=== PATIENT | female | born 1985 | race Caucasian/White ===

== ENCOUNTER → 2017-10-26 18:13 | Outpatient (CLI) | payer OTHER, SELFPAY ==
--- NOTE | 2017-10-26 18:44 | US_ITS ---
STUDY: RENAL ULTRASOUND - COMPLETE REASON FOR EXAM: Female, 32 years old. Flank pain TECHNIQUE: Ultrasound evaluation of the kidneys was performed with real-time and static cerda-scale imaging. COMPARISON: None. FINDINGS: RIGHT KIDNEY: Normal location of the right kidney, which is normal in size. The right kidney measures 12.0 x 5.2 x 4.1 cm. There is a normal cortex of the right kidney. The renal cortex measures 1.3 cm. There is no right renal mass or cyst. There are no right renal calculi. There is no right hydronephrosis. DISTAL RIGHT URETER: There is non-visualization of the distal right ureter. There is no demonstrated right ureterovesical junction calculus. There is a visualized right ureteral jet. LEFT KIDNEY: Normal location of the left kidney, which is normal in size. The left kidney measures 11.8 x 4.6 x 5.3 cm. There is a normal cortex of the left kidney. The renal cortex measures 1.8 cm. There is no left renal mass. There is a small simple cortical mid 1.1 simple cyst. There are no left renal calculi. There is no left hydronephrosis. DISTAL LEFT URETER: There is non-visualization of the distal left ureter. There is no demonstrated left ureterovesical junction calculus. There is a visualized left ureteral jet. BLADDER: The distended urinary bladder has a volume of 318 ml. The empty urinary bladder has a volume of 9 ml. There is a normal wall thickness of the distended urinary bladder. There is no demonstrated mass within the urinary bladder. There are no demonstrated bladder calculi. US/Kidney and Bladder IMPRESSION: Normal ultrasound of the kidneys and urinary bladder. Small simple left cortical renal cyst. No hydronephrosis. Electronically Signed: Lukas John DO at 9:43 EST , Service support ,
== END ==
DX: O26.891 Other specified pregnancy related conditions, first trimester (principal); R10.9 Unspecified abdominal pain; Z3A.01 Less than 8 weeks gestation of pregnancy
CPT/HCPCS: 76770

== ENCOUNTER → 2018-02-26 09:07 | Outpatient (CLI) | payer OTHER, SELFPAY ==
--- NOTE | 2018-02-26 09:07 | DT_ITS ---
This patient was seen during an EMR downtime February 25, 2018 - March 04, 2018. This patient may have a combination of paper and electronic documentation or all paper documentation. All documentation is viewable within the e-chart portion of [employer] for each patient visit.
[2018-03-01 09:09] LABS: Rapid Plasmin Reagin (RPR) NONREACTIVE (NONREACTIVE)
[2018-03-01 12:58] LABS: Chlamydia Trachomatis by PCR Negative (Negative); Neisserai gonorrhoeae by PCR Negative (Negative); Probe Check PASS; Sample Adequacy Control PASS; Specimen Processing Control PASS
[2018-03-04 14:23] LABS: HIV - WCH Nonreactive (Nonreactive); Rubella IgG > 500.0 IU/mL
[2018-03-04 17:44] LABS: Thyroid Stim Hormone (TSH) 2.06 uIU/mL (0.358-3.74)
== END ==
PROVIDERS: Visit Provider Obstetrics & Gynecology Reproductive Endocrinology
DX: E03.9 Hypothyroidism, unspecified (principal); Z31.41 Encounter for fertility testing; Z11.9 Encounter for screening for infectious and parasitic diseases, unspecified; Z11.4 Encounter for screening for human immunodeficiency virus [HIV]
CPT/HCPCS: 36415; 84443; 86592; 86703; 86762; 86787; 86803; 87340; 87491; 87591

== ENCOUNTER → 2018-07-22 06:20 | Outpatient (CLI) | payer OTHER, SELFPAY ==
[2018-07-22 07:59] LABS: hCG Titer Quant., Serum 72 mIU/mL (<9 non-preg)
== END ==
PROVIDERS: Referring Provider Obstetrics & Gynecology Reproductive Endocrinology; Visit Provider Obstetrics & Gynecology Reproductive Endocrinology
DX: Z32.00 Encounter for pregnancy test, result unknown (principal)
CPT/HCPCS: 36415; 84702

== ENCOUNTER → 2018-07-24 06:25 | Outpatient (CLI) | payer OTHER, SELFPAY ==
[2018-07-24 07:00] LABS: hCG Titer Quant., Serum 155 mIU/mL (<9 non-preg)
[2018-07-24 08:19] LABS: Thyroid Stim Hormone (TSH) 1.33 uIU/mL (0.358-3.74)
== END ==
PROVIDERS: Referring Provider Obstetrics & Gynecology Reproductive Endocrinology; Visit Provider Obstetrics & Gynecology Reproductive Endocrinology
DX: Z32.01 Encounter for pregnancy test, result positive (principal); E03.9 Hypothyroidism, unspecified
CPT/HCPCS: 36415; 84443; 84702

== ENCOUNTER → 2018-07-29 15:36 | Outpatient (CLI) | payer OTHER, SELFPAY ==
[2018-07-29 17:13] LABS: hCG Titer Quant., Serum 2168 mIU/mL (<9 non-preg)
== END ==
PROVIDERS: Referring Provider Obstetrics & Gynecology Reproductive Endocrinology; Visit Provider Obstetrics & Gynecology Reproductive Endocrinology
DX: Z32.01 Encounter for pregnancy test, result positive (principal)
CPT/HCPCS: 36415; 84702

== ENCOUNTER → 2018-11-12 16:38 | Outpatient (CLI) | payer OTHER, SELFPAY ==
[2018-11-12 17:45] LABS: T4 Free Direct 0.82 ng/dL (0.76-1.46); Thyroid Stim Hormone (TSH) 1.36 uIU/mL (0.358-3.74)
== END ==
PROVIDERS: Visit Provider Obstetrics & Gynecology
DX: O99.282 Endocrine, nutritional and metabolic diseases complicating pregnancy, second trimester (principal); E03.9 Hypothyroidism, unspecified; Z3A.00 Weeks of gestation of pregnancy not specified
CPT/HCPCS: 36415; 84439; 84443

== ENCOUNTER → 2019-01-07 | Outpatient (CLI) | payer OTHER, SELFPAY ==
[2019-01-07 17:32] LABS: Hematocrit 35.5 % (37-47); Hemoglobin 11.8 g/dl (12.0-15.0); Mean Corp Hgb Conc 33.2 g/gl (32-36); Mean Corpuscular Hgb 29.5 pg (27.0-32.0); Mean Corpuscular Volume 88.8 fL (81-99); Mean Platelet Vol. 10.3 fl (6.2-12.0); Platelet Count 354 K/mm3 (150-450); RBC Distribution Width CV 13.9 % (11.6-14.6); RBC Distribution Width SD 44.5 fl (35.1-43.9); White Blood Count 10.2 K/mm3 (4.4-11.0)
[2019-01-07 17:41] LABS: Glucose Challenge Gest 1H 50g 153 mg/dL (70-140); Scan Indicated on CBC? Y/N NO
== END | disposition home or self-care (01) ==
LOC: WOBLAB 15:04
PROVIDERS: Visit Provider Obstetrics & Gynecology
DX: Z34.83 Encounter for supervision of other normal pregnancy, third trimester (principal)
CPT/HCPCS: 36415; 82950; 85027

== ENCOUNTER → 2019-01-17 | Outpatient (CLI) | payer OTHER, SELFPAY ==
[2019-01-17 08:06] LABS: Glucose GTT-Gestation. Fasting 87 mg/dL (<105)
[2019-01-17 09:55] LABS: Glucose GTT-Gestational 2 Hr 131 mg/dL (<165)
[2019-01-17 10:06] LABS: Glucose GTT-Gestational 1 Hr 182 mg/dL (<190)
[2019-01-17 11:17] LABS: Glucose GTT-Gestational 3 Hr 113 L (<145)
== END | disposition home or self-care (01) ==
LOC: LAB 06:43
PROVIDERS: Referring Provider Obstetrics & Gynecology; Visit Provider Obstetrics & Gynecology
DX: O24.419 Gestational diabetes mellitus in pregnancy, unspecified control (principal); Z3A.00 Weeks of gestation of pregnancy not specified
CPT/HCPCS: 36415; 82951; 82952

== ENCOUNTER → 2019-03-04 | Outpatient (CLI) | payer OTHER, SELFPAY | END | disposition home or self-care (01) | LOC: LABSPEC 11:27 | PROVIDERS: Visit Provider Obstetrics & Gynecology | DX: Z36.85 Encounter for antenatal screening for Streptococcus B (principal) | CPT/HCPCS: 87077; 87081; 87186 ==

== ENCOUNTER 2019-04-06 19:04 | Inpatient (IN) | payer OTHER, SELFPAY ==
--- NOTE | 2019-04-06 19:28 | PCM.HPOB.BLA ---
History and Physical Date of Admission: 04/06/19 OB HISTORY AND PHYSICAL EXAMINATION History of this : 33 yo female Ab2 with EDC 03/29/2019 by Ultrasound, presents to Labor and Delivery for cytotec induction of labor at 41 1/7 wk EGA with unfavorable cervix. care remarkable for : Blood Type - O positive Rubella - IMMUNE GBS positive. 1.) ABNORMAL Glucola 153 3 hr GTT WNL 2.) Hypothyroidism, on Levothyroxine 100 mcg daily, 3.) marginal previa 1.5cm Repeat sono at 28-30 wks for follow up 4.) PCOS. high BMI. 5.) IVF-ET with preimplantation genetics, WNL, SMA test NEG, NOT a carrier for CF. Fragile X testing NEG Pertinent Past Medical History: PCOS. infertility hx. Allergies: Sulfa (Sulfonamide Antibiotics) Medications: During - metformin 500 mg tablet; Prometrium 200 mg capsule; levothyroxine 100 mcg tablet; aspirin 81 mg tablet,delayed release; Vitafol-OB 65-1 mg tablet; Vitamin D3 1,000 unit capsule Review of Systems: Non-contributory PHYSICAL EXAMINATION General Appearence: 33 yo female in no acute distress Vital Signs: AF, VSS Heart: RRR without rubs or gallops Lungs: CTA x 2 Breasts: deferred Abdomen: gravid Pelvis: Cervix: dimple (closed)/ th/high midposition. Presentation: cephalic Station: Fetus: Size: AGA Movement: present Heart: 130-140s avg variability Accels. Irregular UCs. some irritability noted. Impression /Plan: Intrauterine . 41 1/7 wk EGA for induction of labor Admit. Plan cytotect to [facility], Pitocin GBS positive. History and physical generated at time of patient admission. See Progress Notes for Changes: Physician's Signature: Date: Russel Barroso MD 04/06/192024
[2019-04-06] MEDS: Lactated Ringers 1,000 ML 50 ML IV (19:40)
[2019-04-06 19:57] LABS: Absolute Lymphocyte Count 2.65 X10^3/ul (0.83-4.51); Absolute Neutrophil Count 4.8 X10^3/uL (2.0-7.7); Basophil# 0.01 X10^3/uL; Basophil% 0.1 % (0-1); Eosinophil# 0.21 X10^3/uL; Eosinophils% 2.5 % (0-5); Hematocrit 33.7 % (37-47); Hemoglobin 10.9 g/dl (12.0-15.0); Lymphocyte # 2.65 X10^3/ul (4.0); Lymphocyte % 31.3 % (19-41); Mean Corp Hgb Conc 32.3 g/gl (32-36); Mean Corpuscular Volume 83.6 fL (81-99); Mean Platelet Vol. 9.9 fl (6.2-12.0); Monocyte# 0.82 X10^3/uL; Monocyte% 9.7 % (0-10); Neutrophil # 4.77 X10^3/uL (2.7-7.7); Neutrophil % 56.3 % (47-70); Platelet Count 331 K/mm3 (150-450); RBC Distribution Width CV 15.8 % (11.6-14.6); RBC Distribution Width SD 47.9 fl (35.1-43.9); Red Blood Count 4.03 M/mm3 (4.2-5.4); White Blood Count 8.5 K/mm3 (4.4-11.0)
[2019-04-06 20:04] VITALS: BMI 47.9
[2019-04-06 20:04] LABS: POSITIVE COUNT NO; POSITIVE DIFFERENTIAL NO; POSITIVE MORPHOLOGY NO
[2019-04-06] MEDS: Mag Hydrox/Al Hydrox/Simeth 30 ML UDC PO (20:46)
[2019-04-06] MEDS: 0.9% Saline Lock 10 ML Syringe IV (20:46)
--- NOTE | 2019-04-06 22:18 | PCM.PN.BLA ---
Progress Note 41 wk Cytotec postdates induction EFM 130-140 avg variability. Accels category I tracing UCs q 2-5 mins. A/P: continue induction. Plan to [facility] , Pitocin 04/07. Consider Zurita bulb prn
[2019-04-07] VITALS (13 sets, daily range): BP systolic 118–145; BP diastolic 59–77; PULSE 81–101; RESP 12–18; TEMP 36.6–37.5; O2SAT 96–100
[2019-04-07] MEDS: Mag Hydrox/Al Hydrox/Simeth 30 ML UDC PO (00:51)
[2019-04-07] MEDS: 0.9% Saline Lock 10 ML Syringe IV (02:59)
[2019-04-07] MEDS: Lactated Ringers 1,000 ML 50 ML IV ×3 (02:59→16:59)
[2019-04-07] MEDS: Oxytocin 30 units/NS 500 ml 30 UNITS/500 ML IV.SOLN IV (09:45)
--- NOTE | 2019-04-07 12:19 | PCM.PN.BLA ---
Progress Note INDUCTION 41 2/7 wk Cytotec overnight. To [facility] / Pitocin or Zurita bulb planned Late entry from rounds this am at approx 0830 Feeling some UCs. AVSS EFM Category I tracing. 120-130s UCs irregular CX: /-3 sl AROM with minimal return of fluid? ? AROM A/P: 41 2/7 wk induction postdates. Continue induction. Pitocin per protocol . Watch for fluid return.
--- NOTE | 2019-04-07 12:25 | PCM.PN.BLA ---
Progress Note 41 2/7 wk induction Cytotec to [facility] earlier this am. Pitocin at 8 mIU/min AVSS Feeling 4/10 UC pain. EFM 120-130s accels noted. Reassuring. UCs q 2-6 mins. Some coupling and spacing. CX: 2+ / 80 /-3 IUPC placed to monitor UCs. A/PP: 41 2/7 wk induction postdates. Continue Pitocin prn to adequate mVUs. Watch progress, descent.
[2019-04-07] MEDS: fentaNYL-bupivacaine (epidural) 100 ML BAG EPIDURAL (12:55)
--- NOTE | 2019-04-07 14:10 | PCM.PN.BLA ---
Progress Note LABOR PROGRESS induction at 41 2/7 wk CX 3/100 per RN check. Pitocin off due to FHR deceleration after epidural to 80-90s for 6 mins. UCs noted, q 3-4 mins FHR now in 120-130s avg variability Accels noted. Variables noted. IUPC in place. Scalp lead placed per RN. A/P: 41 2/7 wk induction postdates. FHR deceleration IUPC in place. Variables. Position changes to facilitate rotation and to help tx variables. Resume Pitocin as able. Continue induction. watch tolerance of labor.
[2019-04-07] MEDS: Amnioinfusion- 0.9% NS 1,000 ML IV.SOLN. 1000 ML INTRA-UTER (14:13)
[2019-04-07] MEDS: Terbutaline 1 MG/ML Vial 0.25 MG SC ×2 (15:00→17:20)
[2019-04-07] MEDS: Sodium Citrate/Citric Acid 30 ML UDC PO (17:20)
--- NOTE | 2019-04-07 17:22 | PCM.PN.BLA ---
Progress Note Postdates induction. Category I tracing, untill pitocin resumed. Now with repetitive decelerations. AVSS Comfortable w/ epidural. A/P: 41 2/7 wk EGA Induction postdates. intolerance of labor. To C/S DEANN. Terbutaline given 0.25 mg SC. IV bolus.
[2019-04-07] MEDS: Ondansetron 4 MG/2 ML Vial IV (17:33)
[2019-04-07] MEDS: Ketorolac 30 MG/ML Syringe IV ×2 (18:01→23:39)
--- NOTE | 2019-04-07 18:11 | OP.PCM_ITS ---
Report of Operation Date of Procedure: 04/07/19 Pre-Operative Diagnosis: 41 2/7 wk induction. Nonreassuring FHT, in tolerance to labor Post-Operative Diagnosis: Same Surgery/Procedure Performed:: Primary Low transverse C section Description of Surgical Findings:: Gordillo viable female in VTX presentation. 8#1 oz. Ap 8/9 normal appearing uterus, fallopian tubes and ovaries bilaterally enlarged (PCOS) security management specialist: Shena Landrum Type of Anesthesia:: Epidural Anesthesiologist: Javier Prabhakar CRNA Specimen's removed: Placenta Drains: Zurita , clear yellow urine Estimated Blood Loss (mL): 800 Fluids Replaced: LR Description of Procedure: Narrative account: After the risks, benefits and alternatives of the procedure were reviewed with the patient, informed consent was obtained. The patient was taken to the Operating room with an IV running , a Zurita catheter in place and epidural catheter in place. . She was positioned on the operating table and the epidural was dosed to surgical levels. She was prepped and draped , including a vaginal vault prep, in the usual sterile fashion. Once the epidural was deemed adequate, a Pfannenstiel skin incision was created using the knife. The incision was carried down to the rectus fascia using the knife. The fascia was nicked in the midline. The fascial incision was extended bilaterally using curved Arciniega scissors. The superior aspect of the fascial incision was grasped with Juancarlos clamps and tented up and the underlying rectus abdominal muscles were dissected free. In a similar manner, the inferior aspect of the facial incision was grasped with Juancarlos clamps tented up and the underlying rectus abdominal muscles were dissected free. The rectus abdominis muscles were in the midline and the peritoneum was identified and entered by blunt dissection high in the incision. The peritoneum was stretched laterally and a bladder blade was inserted. A bladder flap was created along the lower uterine segment with Metzenbaum scissors . The uterine incision was then created using Metzenbaum scissors. The operators fingertips were used to extend the uterine incision by blunt dissection in a caudad- cephalad orientation . Clear fluid was noted at amniotomy. The vertex was then delivered atraumatically through the incision. The OP and nares were bulb suctioned on the abdomen. The shoulders delivered easily . The cord clamped x two and cut. And the infant was handed off to the nurse awaiting delivery after briefly showing her to her parents. The baby had good tone and a spontaneous vigorous cry. The placenta was then delivered. The uterus was exteriorized and cleared of clots and debris . The uterine incision was repaired with 1 Vicryl in a running locked fashion. A second imbricating layer of 1 Monocryl was placed. Bovie cautery was used to treat any bleeding areas . Excellent hemostasis was noted. At this point the uterus was returned to the abdominal cavity. The gutters were cleared of clots and debris and the incision at the uterus was inspected. Excellent hemostasis was noted. Nataliya was dusted over the uterine incision for continued hemostasis. The peritoneal edges and rectus abdominis muscles were reapproximated in the midline with a series of vertical mattress stitches of 1 Vicryl. Excellent hemostasis was noted at the subfascial space Nataliya was dusted over this layer for hemostasis. The fascia was closed in a running nonlocked fashion with a Stratofix. The Subcutaneous fatty tissue was Bovie cauterized as needed for hemostasis. Nataliya was applied to prevent seroma formation. This layer was then reapproximated in a single layer closure of running 3-0 Vicryl to eliminate space. The skin edges were closed in a Subcuticular stitch of 4-0 Monoc ryl. The incision was cleansed. Cavilon, Steristrips, and Mepilex dressing were applied to the skin . The patient was then transferred to the recovery room bed in stable condition after tolerating the procedure well. Sponge, lap, needle and instrument counts correct times two. Medications given preop and intraoperatively included: Ancef 3 gm IV and Azithromycin 500 mg IV time one were given button station worker to the operating room. The patient also received Pitocin given IV after cord clamp, and Toradol 30 mg IV times one. For a complete listing of medications given preop and intraoper atively, please see the anesthesia record. - Complications None - Admit VTE Documentation VTE Present on Admission: No VTE Mechan Device Prophylaxis: SCD's VTE Pharm Prophylaxis ordered?: No Delivery Classification: DEANN Final FRANKO: 03/29/19 Gestational age: 41 Weeks and 2 Days Amniotic Membrane Rupture Type: Artificial Amniotic Fluid Description: Clear Placenta Disposition: [facility] Drain: Zurita to straight drain Cord Entanglement: None Cord Vessel Description: 3 Vessels Esitmated Blood Loss (ml): 800 Infant Gender: Female (1 minute): 8 (5 minute): 9 Pre-op Antibiotic Given: - - Ancef 3 gm IV
[2019-04-07] MEDS: Lactated Ringers 1,000 ML 100 ML IV ×2 (18:30→23:34)
[2019-04-07] MEDS: Oxytocin 30 units/NS 500 ml 30 UNITS/500 ML IV.SOLN 167 UNITS IV (18:41)
--- NOTE | 2019-04-07 18:50 | DCINST_ITS ---
Discharge Diet: No Restrictions Discharge Activity: May not drive while taking narcotic pain medications., May Shower, May Take a Tub Bath May resume sexual activity in: 4-6 weeks Lifting Restrictions: 20 pounds Additional Activity Instructions:: Nothing in the vagina for 4-6 weeks. You may return to work/school in 6 weeks. Change Dressing in (Days):: 7 Remove Dressing in (days):: 7 Cleanse incision/area with: Soap & Water, Keep Dressing Clean & Dry Additional Instructions: If you experience any of the following, contact your healthcare provider. * Bleeding that soaks a pad every hour for 2 hours * Fever 100.4 or higher * Unrelieved incision or abdominal pain * Swelling, redness, discharge or bleeding from your incision * Problems urinating (including inability to urinate or burning while urinating). * Visual changes * Severe headache * Flu-like symptoms * Pain or redness in one of both of your breasts * Pain, warmth, tenderness or swelling in your legs, especially the calf area * Frequent nausea and vomiting * Symptoms of depression or anxiety If you experience any of the following, call 911 or go to the nearest Emergency Room. * Chest pain * Problems breathing * Seizure activity * Partial or complete paralysis of a body part, slurred speech, weakness or drooping of the face, or a sudden inability to walk or hold your balance Allergies/Adverse Reactions: Allergies Sulfa (Sulfonamide Antibiotics) Allergy (Verified 04/06/19 19:58) Rash Medications to take at Discharge Aspirin [Aspirin, Baby] 81 mg PO DAILY@0800 04/06/19 Levothyroxine [Synthroid] 100 mcg PO DAILY 04/06/19 Vits [Prenatabs FA] 1 tab PO DAILY 04/06/19 Vit D3/Folic Acid/B2/B6/B12 [Folgard Tablet] 1 ea PO DAILY 04/06/19 Docusate Sodium [Colace] 100 mg PO BID #30 cap 04/07/19 Ibuprofen 600 mg PO 4X/DAY PRN PRN #30 tab 04/07/19 Levothyroxine [Synthroid] 100 mcg PO DAILY@0600 tablet 04/07/19 Oxycodone [Oxyir] 5 mg PO Q6H PRN PRN 7 Days #20 tab 04/07/19 Polyethylene Glycol 3350 [Miralax] 17 gm PO DAILY PRN #14 packet 04/07/19 Vits [Prenatabs FA ] 1 tablet PO DAILY@1200 tablet 04/07/19 The following prescriptions were given: Docusate Sodium [Colace] 100 mg PO BID #30 cap Transmission Status: Sent to [facility] Ibuprofen 600 mg PO 4X/DAY PRN PRN #30 tab PRN Reason: Mild-Mod Pain (1-01/31) Transmission Status: Pending to [facility] Polyethylene Glycol 3350 [Miralax] 17 gm PO DAILY PRN #14 packet PRN Reason: Constipation Transmission Status: Pending to [facility] Oxycodone [Oxyir] 5 mg PO Q6H PRN PRN 7 Days #20 tab PRN Reason: Mod-Severe Pain (-07/03) Transmission Status: Pending to [facility] Follow-Up: Call to make an appointment with your doctor for an incision check in 1-2 weeks. You will also need a 6 week post- follow up appointment. Test results from this visit will be discussed in further detail at your follow- up appointment, if applicable. Please Follow Up With: Erinn Barroso MD - [phone] When: Call to make an appointment for an incision check in 2 weeks. Primary Care Physician: Braden Zapata MD [Primary Care Provider] - Proposed Discharge Date: 04/10/19
[2019-04-08] VITALS (12 sets, daily range): BP systolic 104–136; BP diastolic 48–69; PULSE 62–98; RESP 16–18; TEMP 36.3–37.2; O2SAT 97–100
[2019-04-08 04:45] LABS: Hematocrit 27.6 % (37-47); Hemoglobin 8.8 g/dl (12.0-15.0); Mean Corp Hgb Conc 31.9 g/gl (32-36); Mean Corpuscular Hgb 26.7 pg (27.0-32.0); Mean Corpuscular Volume 83.9 fL (81-99); Mean Platelet Vol. 10.2 fl (6.2-12.0); Platelet Count 265 K/mm3 (150-450); RBC Distribution Width CV 15.7 % (11.6-14.6); RBC Distribution Width SD 47.1 fl (35.1-43.9); Red Blood Count 3.29 M/mm3 (4.2-5.4); White Blood Count 14.4 K/mm3 (4.4-11.0)
[2019-04-08 04:46] LABS: Scan Indicated on CBC? Y/N NO
[2019-04-08] MEDS: Levothyroxine 100 MCG Tablet PO (05:30)
[2019-04-08] MEDS: Ketorolac 30 MG/ML Syringe IV ×3 (05:30→18:23)
--- NOTE | 2019-04-08 08:29 | PCM.PN.OB ---
Subjective: POD#1 intolerance to labor 41 2/7 wk EGA induction Doing well. Minimal pain Plans to nurse. - Physical Exam General: Alert, Oriented x3, Cooperative, No apparent distress HEENT: Atraumatic, EOMI Abdomen: Soft - Fundus inferior to umbliicus. Difficult to palpate with BMI Skin: Incision - Mepilex CDI with shadow drainage marked. Psych/Mental Status: Normal Affect Vital Signs Temp Pulse Resp BP Pulse Ox 98.9 F 98 16 135/69 H 98 04/08/19 05:15 04/08/19 05:15 04/08/19 05:15 04/08/19 05:15 04/08/19 05:15 Oxygen Delivery Method Room Air Weight: 122.9 kg Body Mass Index (BMI) 47.9 Intake and Output for Last 24 Hours 04/06/19 04/07/19 04/08/19 23:59 23:59 23:59 Intake Total 3226 / 3226 921 / 921 Output Total 950 / 950 700 / 700 Balance 2276 / 2276 221 / 221 Laboratory Tests Past 24 Hrs 04/08/19 04:35 WBC 14.4 H RBC 3.29 L Hgb 8.8 L Hct 27.6 L MCV 83.9 MCH 26.7 L MCHC 31.9 L RDW 15.7 H RDW Differential 47.1 H Plt Count 265 MPV 10.2 Medical Necessity - Tobacco Use Smoking Status: Never smoker Assessment/Plan POD#1 Primary C section. intolerance to labor 41 + wk induction Stable postop Inc diet and activity as tolerated. Begin po meds. D/C philip later today for voiding trial. S/L IV for continued Toradol Postop anemia, acute blood loss superimposed on iron deficiency anemia of -- Ferrous gluconate bid. Continue routine care.
--- NOTE | 2019-04-08 08:52 | NURSING ---
Has indwelling philip catheter. Catheter WNL
[2019-04-08] MEDS: Aspirin 81 MG TAB.CHEW PO (09:50)
--- NOTE | 2019-04-08 10:33 | NURSING ---
10:30 Patient up to bathroom with assist. Gait steady. Patient tolerated well. D/C philip. Emily care done in bathroom. Patient set up in shower. Patient ambulated in room.
[2019-04-08] MEDS: Prenatal Vits Tablet 1 TABLET PO (12:35)
[2019-04-08] MEDS: Ferrous Gluconate 324 MG Tablet PO (18:25)
[2019-04-08] MEDS: 0.9% Saline Lock 10 ML Syringe IV (18:25)
[2019-04-08] MEDS: Senna/Docusate Sodium 1 Tablet PO (22:22)
[2019-04-09] MEDS: Ketorolac 30 MG/ML Syringe IV ×3 (00:24→11:49)
[2019-04-09] MEDS: 0.9% Saline Lock 10 ML Syringe IV ×5 (00:24→11:49)
[2019-04-09 01:57] VITALS: BP 122/57; PULSE 88; RESP 18; TEMP 36.9
[2019-04-09] MEDS: Levothyroxine 100 MCG Tablet PO (06:15)
[2019-04-09 07:32] VITALS: BP 108/70; PULSE 75; RESP 18; TEMP 36.6; O2SAT 97
[2019-04-09] MEDS: Aspirin 81 MG TAB.CHEW PO (07:37)
[2019-04-09] MEDS: Ferrous Gluconate 324 MG Tablet PO ×2 (07:37→16:50)
--- NOTE | 2019-04-09 07:43 | PN.OBGYN_ITS ---
Subjective: POD#2 Primary C/S for failure to progress Doing OK. Zurita out yesterday. Nursing. Baby up a lot at night. No concerns voiced today. Questions about stairs at home, care of incision. Objective: Lying semirecumbent in bed. NAD. IV to S/L on L arm - Physical Exam General: Alert, Oriented x3, Cooperative, No apparent distress HEENT: Atraumatic, EOMI Abdomen: Soft - fundus firm minimally tender at 2 cm inferior to umbilicus Skin: Incision - Mepilex CDI. Neurological: Cranial nerves II-XII grossly intact Psych/Mental Status: Normal Affect Vital Signs Temp Pulse Resp BP Pulse Ox 97.9 F 75 18 108/70 97 04/09/19 07:32 04/09/19 07:32 04/09/19 07:32 04/09/19 07:32 04/09/19 07:32 Oxygen Delivery Method Room Air Weight: 122.9 kg Body Mass Index (BMI) 47.9 Intake and Output for Last 24 Hours 04/07/11 04//04/09/19 23:59 23:59 23:59 Intake Total 3226 / 3226 1616 / 1616 Output Total 950 / 950 2200 / 2200 Balance 2276 / 2276 -584 / -584 Medical Necessity - Tobacco Use Smoking Status: Never smoker Assessment/Plan POD#2 Primary C section. intolerance to labor 41 + wk induction Stable postop Wants to stay. Postop anemia, acute blood loss superimposed on iron deficiency anemia of pregn keysha -- Ferrous gluconate bid. Continue routine care.
[2019-04-09] MEDS: Prenatal Vits Tablet 1 TABLET PO (11:49)
[2019-04-09 13:57] VITALS: BP 136/73; PULSE 75; RESP 18; TEMP 36.5
[2019-04-09 20:42] VITALS: BP 129/69; PULSE 83; RESP 18; TEMP 36.8
[2019-04-09] MEDS: Acetaminophen 500 MG Tablet 1000 MG PO (22:21)
[2019-04-09] MEDS: Senna/Docusate Sodium 1 Tablet PO (22:21)
[2019-04-10 02:35] VITALS: BP 127/67; PULSE 69; RESP 18; TEMP 36.6
--- NOTE | 2019-04-10 05:49 | PCM.PN.OB ---
Subjective: POD#3 Primary C/S for intolerance to labor. Doing ok. Sore incision and some inc cramping with nursing. Milk not in yet. - Physical Exam General: Alert, Oriented x3, Cooperative, No apparent distress HEENT: Atraumatic, EOMI Neck: Supple Abdomen: Soft - Fundus firm NT at 2 cm inferior to umbilicus Skin: Incision - Mepilex CDI. Minor erythema noted at dressing clear tape superior to the incision. Neurological: Cranial nerves II-XII grossly intact Psych/Mental Status: Normal Affect Vital Signs Temp Pulse Resp BP Pulse Ox 97.9 F 69 18 127/67 H 97 04/10/19 02:35 04/10/19 02:35 04/10/19 02:35 04/10/19 02:35 04/09/19 07:32 Oxygen Delivery Method Room Air Weight: 122.9 kg Body Mass Index (BMI) 47.9 Intake and Output for Last 24 Hours 04/08/19 04/09/1918 23:59 23:59 23:59 Intake Total 1616 / 1616 Output Total 2200 / 2200 Balance -584 / -584 Medical Necessity - Tobacco Use Smoking Status: Never smoker Assessment/Plan POD#3 Primary C section. intolerance to labor 41 + wk induction Stable postop Dischg home today. RTO in 2 wk for postop check, prn sooner. Postop anemia, acute blood loss superimposed on iron deficiency anemia of -- Ferrous gluconate bid. Continue routine care.
--- NOTE | 2019-04-10 05:57 | PCM.DC.SUM ---
Discharge Date and Diagnosis Date of Admission: 04/06/19 - 41 + wk induction Date of Discharge: 04/10/19 - intolerance of labor primary C/S Hospital Course and Treatment Operations: - - Induction of labor. Primary C/S for intolerance of labor. Summary of Care Provided: The patient is a 33 year female presents at 41 wk for induction labor. Cytotec to [facility] Pitocin. Progressed to 3 cm/100 effaced. Epidural placed. Primary C/S for intolerance of labor. Delivered 04/07/19 Gordillo viable female Ap 8/9 Postoperative course uneventful. Iron deficiency anemia with superimposed acute blood loss anemia. Preop Hgb 10.9 g/dl Postop hgb 8.8 g/dl Home on POD#3 in stable condition, benign exam. Possible minor skin rxn to the tape of Mepilex dressing. RTO in 2 wk for postop incision check. - Physical Exam Vital Signs Temp Pulse Resp BP Pulse Ox 97.9 F 69 18 127/67 H 97 04/10/19 02:35 04/10/19 02:35 04/10/19 02:35 04/10/19 02:35 04/09/19 07:32 Oxygen Delivery Method Room Air Weight: 122.9 kg Body Mass Index (BMI) 47.9 Intake and Output for Last 24 Hours 04/08/19 04/09/19 04/10/19 23:59 23:59 23:59 Intake Total 1616 / 1616 Output Total 2200 / 2200 Balance -584 / -584 Discharge Diet: No Restrictions Discharge Activity: May not drive while taking narcotic pain medications., May Shower, May Take a Tub Bath May resume sexual activity in: 4-6 weeks Additional Activity Instructions:: Nothing in the vagina for 4-6 weeks. You may return to work/school in 6 weeks. Change Dressing in (Days):: 7 Remove Dressing in (days):: 7 Cleanse incision/area with: Soap & Water, Keep Dressing Clean & Dry Home Medications: Medications to take at Discharge Aspirin [Aspirin, Baby] 81 mg PO DAILY@0800 04/06/19 Levothyroxine [Synthroid] 100 mcg PO DAILY 04/06/19 Vits [Prenatabs FA] 1 tab PO DAILY 04/06/19 Vit D3/Folic Acid/B2/B6/B12 [Folgard Tablet] 1 ea PO DAILY 04/06/19 Docusate Sodium [Colace] 100 mg PO BID #30 cap 04/07/19 Ibuprofen 600 mg PO 4X/DAY PRN PRN #30 tab 04/07/19 Levothyroxine [Synthroid] 100 mcg PO DAILY@0600 tab 04/07/19 Oxycodone [Oxyir] 5 mg PO Q6H PRN PRN 7 Days #20 tab 04/07/19 Polyethylene Glycol 3350 [Miralax] 17 gm PO DAILY PRN #14 packet 04/07/19 Vits [Prenatabs FA ] 1 tab PO DAILY@1200 tab 04/07/19 Ferrous Gluconate 325 mg PO BIDCM #60 tab 04/08/19 Following Prescrptions Were Given to Patient: Docusate Sodium [Colace] 100 mg PO BID #30 cap Transmission Status: Received by [facility] Ferrous Gluconate 325 mg PO BIDCM #60 tab Transmission Status: Received by [facility] Ibuprofen 600 mg PO 4X/DAY PRN PRN #30 tab PRN Reason: Mild-Mod Pain (1-01/31) Transmission Status: Received by [facility] Polyethylene Glycol 3350 [Miralax] 17 gm PO DAILY PRN #14 packet PRN Reason: Constipation Transmission Status: Received by [facility] Oxycodone [Oxyir] 5 mg PO Q6H PRN PRN 7 Days #20 tab PRN Reason: Mod-Severe Pain (-07/03) Transmission Status: Received by [facility] Primary Care Physician: Braden Zapata MD [Primary Care Provider] - Please Follow Up With: Erinn Barroso MD - [phone] When: Call to make an appointment for an incision check in 2 weeks. Medical Necessity - Tobacco Use Smoking Status: Never smoker Meaningful Use Info Meaningful Use Diagnoses (Choose all that apply): None applicable
[2019-04-10] MEDS: Levothyroxine 100 MCG Tablet PO (06:09)
[2019-04-10] MEDS: Acetaminophen 500 MG Tablet 1000 MG PO ×2 (06:09→16:16)
[2019-04-10 08:28] VITALS: BP 136/76; PULSE 60; RESP 16; TEMP 36.9; O2SAT 97
[2019-04-10] MEDS: Aspirin 81 MG TAB.CHEW PO (08:48)
[2019-04-10] MEDS: Ferrous Gluconate 324 MG Tablet PO (08:48)
[2019-04-10] MEDS: Ibuprofen 600 MG Tablet PO (13:56)
[2019-04-10 13:58] VITALS: BP 122/62; PULSE 80; RESP 16; TEMP 37.1; O2SAT 98
== END 2019-04-10 16:25 | disposition home or self-care (01) | DRG 787 ==
PROVIDERS: Admitting Provider Obstetrics & Gynecology; Referring Provider Obstetrics & Gynecology; Visit Provider Obstetrics & Gynecology
DX: O48.0 Post-term pregnancy (principal); O98.82 Other maternal infectious and parasitic diseases complicating childbirth; D62 Acute posthemorrhagic anemia; Z3A.41 41 weeks gestation of pregnancy; O76 Abnormality in fetal heart rate and rhythm complicating labor and delivery; B95.1 Streptococcus, group B, as the cause of diseases classified elsewhere; O99.02 Anemia complicating childbirth; O99.284 Endocrine, nutritional and metabolic diseases complicating childbirth; E03.9 Hypothyroidism, unspecified; Z37.0 Single live birth; O90.81 Anemia of the puerperium
CPT/HCPCS: 59025; 59050; 85025; 85027; 86850; 86900; 99218; J7030; J7120; A4216; G0378; J0290; J2405

== ENCOUNTER → 2019-04-24 | Outpatient (CLI) | payer OTHER, SELFPAY ==
[2019-04-06 20:04] VITALS: BMI 47.9
== END | disposition home or self-care (01) ==
LOC: WOBLAB 10:55
PROVIDERS: Visit Provider Obstetrics & Gynecology
DX: R30.0 Dysuria (principal)
CPT/HCPCS: 87086; 87088

== ENCOUNTER → 2019-05-22 | Outpatient (CLI) | payer OTHER, SELFPAY ==
[2019-05-22 18:24] LABS: Free T3 2.5 pg/mL (2.18-3.98); T4 Free Direct 0.87 ng/dL (0.76-1.46); Thyroid Stim Hormone (TSH) 0.34 uIU/mL (0.358-3.74)
== END | disposition home or self-care (01) ==
LOC: WOBLAB 16:20
PROVIDERS: Visit Provider Obstetrics & Gynecology
DX: Z86.39 Personal history of other endocrine, nutritional and metabolic disease (principal)
CPT/HCPCS: 84439; 84443; 84481

== ENCOUNTER → 2020-09-13 13:00 | Outpatient (CLI) | payer OTHER, SELFPAY ==
[2020-09-13 08:43] VITALS: BMI 49.8
[2020-09-15 10:39] LABS: HPV APTIMA, High Risk Negative (Negative)
== END ==
PROVIDERS: PCP Internal Medicine; Referring Provider Obstetrics & Gynecology; Visit Provider Obstetrics & Gynecology
DX: Z12.4 Encounter for screening for malignant neoplasm of cervix (principal)
CPT/HCPCS: 87624; 88175; G0145

== ENCOUNTER → 2020-11-05 08:06 | Outpatient (CLI) | payer OTHER, SELFPAY ==
[2020-09-13 08:43] VITALS: BMI 49.8
--- NOTE | 2020-11-05 08:10 | RAD_ITS ---
STUDY: X-RAY - ESOPHAGUS (BARIUM SWALLOW) WITH FLUOROSCOPY REASON FOR EXAM: Female, 35 years old. dysphagia/g erd off and on x for couple years and getting worse. food gets stuck, has to vomit to get it up. TECHNIQUE: 30 view(s) of the esophagus were obtained following swallowing of barium. FLUOROSCOPY TIME (if supplied): (0:55) minutes/seconds COMPARISON: None. FINDINGS: There is no demonstrated esophageal foreign body. There is no demonstrated stricture or mucosal abnormality. Normal gastroesophageal junction, without a demonstrated hiatal hernia. The patient ingested a 12 mm tablet of barium. The tablet is trapped at the gastroesophageal junction. Normal visualized aortic arch and descending thoracic aorta. Normal visualized pulmonary parenchyma. Normal visualized osseous structures of the thorax. RAD/Esophagus Dual Contrast IMPRESSION: The patient ingested a 12 mm tablet of barium. The tablet is trapped at the gastroesophageal junction. Electronically Signed: Darren Ramos MD at 13:09 EST , Service support ,
== END ==
PROVIDERS: PCP Internal Medicine; Referring Provider Internal Medicine; Visit Provider Internal Medicine
DX: R13.10 Dysphagia, unspecified (principal); K21.9 Gastro-esophageal reflux disease without esophagitis
CPT/HCPCS: 74221

== ENCOUNTER → 2020-12-22 06:18 | Outpatient (CLI) | payer OTHER, SELFPAY ==
[2020-09-13 08:43] VITALS: BMI 49.8
[2020-12-22 08:04] LABS: Glucose 88 mg/dL (74-106)
[2020-12-22 08:13] LABS: Insulin 15.3 mU/L (2.6-37.6)
== END ==
PROVIDERS: PCP Internal Medicine; Referring Provider Obstetrics & Gynecology Reproductive Endocrinology; Visit Provider Obstetrics & Gynecology Reproductive Endocrinology
DX: E16.8 Other specified disorders of pancreatic internal secretion (principal)
CPT/HCPCS: 36415; 82947; 83525

== ENCOUNTER → 2021-04-28 06:52 | Outpatient (CLI) | payer OTHER, SELFPAY ==
[2020-09-13 08:43] VITALS: BMI 49.8
[2021-04-28 07:38] LABS: hCG Titer Quant., Serum 131 mIU/mL (1-3)
== END ==
PROVIDERS: PCP Internal Medicine; Referring Provider Obstetrics & Gynecology Reproductive Endocrinology; Visit Provider Obstetrics & Gynecology Reproductive Endocrinology
DX: Z32.00 Encounter for pregnancy test, result unknown (principal)
CPT/HCPCS: 36415; 84702

== ENCOUNTER → 2021-05-02 07:13 | Outpatient (CLI) | payer OTHER, SELFPAY ==
[2020-09-13 08:43] VITALS: BMI 49.8
[2021-05-02 07:57] LABS: hCG Titer Quant., Serum 378 mIU/mL (1-3)
[2021-05-02 08:02] LABS: Thyroid Stim Hormone (TSH) 2.62 uIU/mL (0.358-3.74)
== END ==
PROVIDERS: PCP Internal Medicine; Referring Provider Obstetrics & Gynecology Reproductive Endocrinology; Visit Provider Obstetrics & Gynecology Reproductive Endocrinology
DX: Z32.01 Encounter for pregnancy test, result positive (principal)
CPT/HCPCS: 36415; 84443; 84702

== ENCOUNTER → 2021-07-14 16:03 | Outpatient (CLI) | payer OTHER, SELFPAY ==
[2021-07-14 17:08] LABS: Amphetamine Urine VISTA NEGATIVE (<1000 ng/mL); Barbiturate Urine VISTA NEGATIVE (< 200 ng/mL); Benzodiazepine Urine VISTA NEGATIVE (< 200 ng/mL); Cocaine Urine VISTA NEGATIVE (< 300 ng/mL); Ecstacy Urine VISTA NEGATIVE (< 500 ng/mL); Methadone Urine VISTA NEGATIVE (< 300 ng/mL); PCP Urine VISTA NEGATIVE (< 25 ng/mL); THC Urine VISTA NEGATIVE (< 50 ng/mL); Vista UDS pH Range 5
== END ==
PROVIDERS: PCP Internal Medicine; Referring Provider Obstetrics & Gynecology; Visit Provider Obstetrics & Gynecology
DX: Z34.90 Encounter for supervision of normal pregnancy, unspecified, unspecified trimester (principal)
CPT/HCPCS: 80307; 87086; 87088

== ENCOUNTER → 2021-07-27 15:34 | Outpatient (CLI) | payer OTHER, SELFPAY ==
[2021-07-27 17:05] LABS: Glucose Challenge Gest 1H 50g 99 mg/dL (70-140); T4 Free Direct 0.83 ng/dL (0.76-1.46); Thyroid Stim Hormone (TSH) 1.77 uIU/mL (0.358-3.74)
== END ==
PROVIDERS: PCP Internal Medicine; Referring Provider Obstetrics & Gynecology; Visit Provider Obstetrics & Gynecology
DX: Z34.90 Encounter for supervision of normal pregnancy, unspecified, unspecified trimester (principal)
CPT/HCPCS: 36415; 82950; 84439; 84443

== ENCOUNTER → 2021-08-12 16:50 | Outpatient (CLI) | payer OTHER, SELFPAY ==
[2021-08-12 18:13] LABS: T4 Free Direct 0.82 ng/dL (0.76-1.46); Thyroid Stim Hormone (TSH) 1.92 uIU/mL (0.358-3.74)
== END ==
PROVIDERS: PCP Internal Medicine; Referring Provider Obstetrics & Gynecology; Visit Provider Obstetrics & Gynecology
DX: E03.9 Hypothyroidism, unspecified (principal); Z13.29 Encounter for screening for other suspected endocrine disorder
CPT/HCPCS: 36415; 84439; 84443

== ENCOUNTER → 2021-09-12 09:03 | Outpatient (CLI) | payer OTHER, SELFPAY ==
[2021-09-12 09:47] LABS: T4 Free Direct 0.73 ng/dL (0.76-1.46); Thyroid Stim Hormone (TSH) 1.54 uIU/mL (0.358-3.74)
== END ==
PROVIDERS: PCP Internal Medicine; Referring Provider Obstetrics & Gynecology; Visit Provider Obstetrics & Gynecology
DX: E03.9 Hypothyroidism, unspecified (principal)
CPT/HCPCS: 36415; 84439; 84443

== ENCOUNTER 2021-10-06 14:35 | Outpatient (CLI) | payer OTHER, SELFPAY ==
[2021-10-06 15:03] LABS: Absolute Lymphocyte Count 2.46 X10^3/uL (0.83-4.51); Absolute Neutrophil Count 7.7 X10^3/uL (2.0-7.7); Basophil# 0.02 X10^3/uL; Basophil% 0.2 % (0-1); Eosinophil# 0.15 X10^3/uL; Eosinophils% 1.3 % (0-5); Hematocrit 34.5 % (37-47); Hemoglobin 11.1 g/dL (12.0-15.0); Lymphocyte # 2.46 X10^3/ul (0.83-4.51); Mean Corp Hgb Conc 32.2 g/dL (32-36); Mean Corpuscular Hgb 27.5 pg (27.0-32.0); Mean Corpuscular Volume 85.4 fL (81-99); Mean Platelet Vol. 10.1 fl (6.2-12.0); Monocyte% 7.2 % (0-10); NRBC Flagged by Analyzer 0 % (0-5); Neutrophil # 7.68 X10^3/uL (2.7-7.7); Neutrophil % 68.8 % (47-70); Platelet Count 310 K/mm3 (150-450); RBC Distribution Width CV 15.6 % (11.6-14.6); RBC Distribution Width SD 48.7 fl (35.1-43.9); Red Blood Count 4.04 M/mm3 (4.2-5.4); White Blood Count 11.2 K/mm3 (4.4-11.0)
[2021-10-06 15:29] LABS: Glucose Challenge Gest 1H 50g 139 mg/dL (70-140); T4 Free Direct 0.76 ng/dL (0.76-1.46); Thyroid Stim Hormone (TSH) 0.74 uIU/mL (0.358-3.74)
== END 2021-10-06 23:59 | disposition short-term general hospital (02) ==
LOC: PAVLAB 14:36
PROVIDERS: PCP Internal Medicine; Referring Provider Obstetrics & Gynecology; Visit Provider Obstetrics & Gynecology
DX: Z34.92 Encounter for supervision of normal pregnancy, unspecified, second trimester (principal); E03.9 Hypothyroidism, unspecified; Z13.1 Encounter for screening for diabetes mellitus
CPT/HCPCS: 36415; 82950; 84439; 84443; 85025

== ENCOUNTER 2021-10-18 06:44 | Outpatient (CLI) | payer OTHER, SELFPAY ==
[2021-10-18 07:42] LABS: Glucose GTT-Gestation. Fasting 87 mg/dL (<105)
[2021-10-18 08:38] LABS: Glucose GTT-Gestational 1 Hr 164 mg/dL (<190)
[2021-10-18 09:54] LABS: Glucose GTT-Gestational 2 Hr 124 mg/dL (<165)
[2021-10-18 11:48] LABS: Glucose GTT-Gestational 3 Hr 103 L (<145)
== END 2021-10-18 23:59 | disposition short-term general hospital (02) ==
LOC: LAB 06:45
PROVIDERS: PCP Internal Medicine; Referring Provider Obstetrics & Gynecology; Visit Provider Obstetrics & Gynecology
DX: Z13.1 Encounter for screening for diabetes mellitus (principal)
CPT/HCPCS: 36415; 82951; 82952

== ENCOUNTER 2021-11-11 13:19 | Outpatient (CLI) | payer OTHER, SELFPAY ==
--- NOTE | 2021-11-11 13:19 | US_ITS ---
STUDY: SECOND AND THIRD TRIMESTER OBSTETRICAL ULTRASOUND REASON FOR EXAM: Female, 36 years old growth LMP: 03/31/2021. TECHNIQUE: Transabdominal TECHNICAL QUALITY: Adequate. PRIOR ULTRASOUND: None. FINDINGS: There is a single intrauterine fetus. The fetus is in a cephalic presentation. There is demonstrated cardiac activity with a heart rate of 123 bpm. There is a normal amniotic fluid volume. The largest amniotic fluid pocket measures 6.8 cm. The amniotic fluid index (DAVID) is 19.7 cm. The placenta is fundal in location. There are Grade 1 placental changes. The cervix measures 4.5 cm in length. The bilateral adnexal regions are normal. BIOMETRY: BPD: 8.3 cm: 33 weeks, 2 days HC: 30.6 cm: 34 weeks, 0 days AC: 29.6 cm: 33 weeks, 4 days FL: 6.4 cm: 30 weeks, 0 days CI: 79% FL/BPD: 77% FL/HC: FL/AC: 22% HC/AC: 1.03 age by current US: 33 weeks, 2 days. FRANKO by current US: 12/28/2021. Estimated weight: 2217 grams, +/- 333 grams, 81 %. Age by LMP: 32 weeks, 1 days. FRANKO by LMP: 01/05/2022. US/OB Limited With Biometrics IMPRESSION: Single live intrauterine gestation with a mean gestational age of 33 weeks and 2 days. Electronically Signed: Darren Ramos MD at 15:09 EST ,
== END 2021-11-11 23:59 | disposition home or self-care (01) ==
LOC: OPUS 13:19
PROVIDERS: PCP Internal Medicine; Referring Provider Obstetrics & Gynecology; Visit Provider Obstetrics & Gynecology
DX: O09.529 Supervision of elderly multigravida, unspecified trimester (principal); Z78.9 Other specified health status; Z3A.00 Weeks of gestation of pregnancy not specified
CPT/HCPCS: 76816

== ENCOUNTER 2021-12-08 14:30 | Outpatient (CLI) | payer OTHER, SELFPAY ==
--- NOTE | 2021-12-08 14:40 | US_ITS ---
STUDY: SECOND AND THIRD TRIMESTER OBSTETRICAL ULTRASOUND REASON FOR EXAM: Female, 36 years old growth LMP: 03/31/2021 TECHNIQUE: Transabdominal TECHNICAL QUALITY: Adequate. PRIOR ULTRASOUND: 11/11/2021 FINDINGS: There is a single intrauterine fetus. The fetus is in a cephalic presentation. There is demonstrated cardiac activity with a heart rate of 124 bpm. There is a normal amniotic fluid volume. The largest amniotic fluid pocket measures 6.7 cm. The amniotic fluid index (DAVID) is 18.3 cm. The placenta is fundal in location. There are Grade 2 placental changes. The cervix measures in length. The adnexal regions are not visualized. BIOMETRY: BPD: 8.9 cm: 36 weeks, 2 days HC: 32.9 cm: 37 weeks, 3 days AC: 35.0 cm: 39 weeks, 0 days FL: 7.0 cm: 36 weeks, 2 days CI: 79% FL/BPD: 79% FL/HC: FL/AC: 20% HC/AC: 0.94 age by current US: 37 weeks, 2 days. FRANKO by current US: 12/27/2021. Estimated weight: 11/24/2001 grams, +/- 482 grams, 91 %. Age by LMP: 36 weeks, 0 days. FRANKO by LMP: 01/05/2022. US/OB Limited With Biometrics IMPRESSION: Living uterine of 37 weeks 2 days as described above Electronically Signed: Richar Miguel MD at 11:00 EDT ,
== END 2021-12-08 23:59 | disposition home or self-care (01) ==
PROVIDERS: PCP Internal Medicine; Visit Provider Obstetrics & Gynecology
DX: O09.529 Supervision of elderly multigravida, unspecified trimester (principal); Z78.9 Other specified health status; Z3A.00 Weeks of gestation of pregnancy not specified
CPT/HCPCS: 76816

== ENCOUNTER 2021-12-08 17:18 | Outpatient (CLI) | payer OTHER, SELFPAY | END 2021-12-08 23:59 | disposition home or self-care (01) | LOC: LABSPEC 17:18 | PROVIDERS: PCP Internal Medicine; Visit Provider Obstetrics & Gynecology | DX: O09.90 Supervision of high risk pregnancy, unspecified, unspecified trimester (principal); Z3A.00 Weeks of gestation of pregnancy not specified | CPT/HCPCS: 87081 ==

== ENCOUNTER 2021-12-29 05:08 | Inpatient (IN) | payer OTHER, SELFPAY ==
[2021-12-29] VITALS (15 sets, daily range): BP systolic 127–149; BP diastolic 55–86; PULSE 66–98; RESP 14–17; TEMP 36.2–36.8; O2SAT 95–98; BMI 50.8
[2021-12-29] MEDS: Acetaminophen 500 MG Tablet 1000 MG PO ×3 (06:02→18:21)
[2021-12-29] MEDS: Lactated Ringers 1,000 ML 999 ML IV (06:20)
[2021-12-29] MEDS: guaiFENesin Dm 10 ML UDC PO ×4 (06:30→22:29)
[2021-12-29 06:37] LABS: Absolute Neutrophil Count 8.7 X10^3/uL (2.0-7.7); Basophil# 0.02 X10^3/uL; Basophil% 0.2 % (0-1); Eosinophil# 0.11 X10^3/uL; Eosinophils% 0.9 % (0-5); Hematocrit 28.5 % (37-47); Lymphocyte % 16.7 % (19-41); Mean Corp Hgb Conc 31.6 g/dL (32-36); Mean Corpuscular Hgb 25.6 pg (27.0-32.0); Mean Platelet Vol. 10.3 fl (6.2-12.0); Monocyte# 1.07 X10^3/uL; Monocyte% 8.9 % (0-10); NRBC Flagged by Analyzer 0 % (0-5); Neutrophil # 8.74 X10^3/uL (2.7-7.7); Neutrophil % 72.8 % (47-70); Platelet Count 323 K/mm3 (150-450); RBC Distribution Width CV 17.2 % (11.6-14.6); RBC Distribution Width SD 50.3 fl (35.1-43.9); Red Blood Count 3.52 M/mm3 (4.2-5.4)
[2021-12-29] MEDS: Sodium Citrate/Citric Acid 30 ML UDC PO (07:15)
--- NOTE | 2021-12-29 07:26 | HP.PCM.OB_ITS ---
HPI - General General Date of Admission: 12/29/21 HPI Narrative ALEX MENDOZA, is a 36 F who presents for RLTCS Maternal Data Information FRANKO Calculator Estimated Delivery Date Method Current WG Current Estimate 01/05/22 LMP (Certain) 39w 0d PFSH PFSH Medical History Hyperthyroidism PCOS (polycystic ovarian syndrome) Home Medications aspirin 81 mg chewable tablet 81 mg PO DAILY 07/14/21 [History Last Taken 03/15] omeprazole 20 mg capsule,delayed release 20 mg PO DAILY 07/14/21 [History Last Taken 12/27/21] guaifenesin [Mucinex] 1,200 mg PO BID 12/29/21 [History Last Taken 12/28/21] levothyroxine 125 mcg PO DAILY 12/29/21 [History Last Taken 12/29/21] vit,[id number] 1 tablet PO DAILY@1200 12/29/21 [History Last Taken 12/28/21] Allergy/AdvReac Type Severity Reaction Status Date / Time Sulfa (Sulfonamide Allergy Hives Verified 12/29/21 05:30 Antibiotics) Family History Father Hypertension Brother Thyroid disorder Grandmother Lymphoma Surgical History H/O cervical polypectomy H/O dilation and curettage Previous section S/P tonsillectomy Social History number of children: 1 current occupational status: employed 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 Date Name GA/Weeks Outcome Route Bth Weight Gen Labor Lgth Anesthesia Del Locatn Provider FOB 04/07/19 Marian 41 8 lb 1 oz Female [facility] Dr Nandini Barroso Visit Details Expected Delivery Route/Plan RLTCS Plans Covid status: positive in past, moderna vaccinated Flu vaccine: given Tdap vaccine: given Rhogam: na LARC form signed: [] movement and labor precautions reviewed. Problem list reviewed and updated with the most current plan of care details and appropriate orders placed. Relevant counseling for the gestational age provided. Continue routine care and follow up unless otherwise noted in visit notes/problem list details OB Flowsheet Initial Weight: 270 lb Date -?-?-?-?-?-?-?-?-?-?-?-?- EGA Weight BP Urine Prot -?-?-?-?-?-?-?--?-?-?-?-?- Glucose FHR FuHt Pres Dilation -?-?-?-?-?-?-?-?-?-?-?-?- Effaced St Visit Note 08/12/21 -?-?-?-?-?-?-?-?-?-?-?-?- 19w 1d 271 lb 6 oz (+1 lb 6 oz) 136/70 Trace -?-?-?-?-?-?-?-?-?-?-?-?- Negative 150 -?-?-?-?-?-?-?-?-?-?-?-?- SM- no vb lof cr amping SM- no vb lof cramping, orde red flexeril for muscle pain 09/12/21 -?-?-?-?-?-?-?-?-?-?-?-?- 23w 4d 267 lb (-3 lb) 134/88 Negative -?-?-?-?-?-?-?-?-?-?-?-?- Negative 150 -?-?-?-?-?-?-?-?-?-?-?-?- SM- no vb lof go od fm no regular ctx SM- no vb lof good fm no reg ular ctx discussed AFP, to decide 10/06/21 -?-?-?-?-?-?-?-?-?-?-?-?- 27w 0d 272 lb 4 oz (+2 lb 4 oz) 138/88 Trace -?-?-?-?-?-?-?-?-?-?-?-?- Negative 145 27 -?-?-?-?-?-?--?-?-?-?-?-?- SM- no vb lof go od fm no regular ctx. 10/21/21 -?-?-?-?-?-?-?-?-?-?-?-?- 29w 1d 273 lb 8 oz (+3 lb 8 oz) 138/80 Negative -?-?-?-?-?-?-?-?-?-?-?-?- Negative 140 29 31 -?-?-?-?-?-?-?-?-?-?-?-?- SM- no vb lof go od fm no regular ctx 11/04/21 -?-?-?-?-?-?-?-?-?-?-?-?- 31w 1d 273 lb (+3 lb) 138/84 Negative -?-?-?-?-?-?-?-?-?-?-?-?- Negative 140 32 -?-?-?-?-?-?-?-?-?-?-?-?- SM- SM- no vb lof good fm no reg ular ctx 11/10/21 -?-?-?-?-?-?-?-?-?-?-?-?- 32w 0d 273 lb 4 oz (+3 lb 4 oz) 134/86 Negative -?-?-?-?-?-?-?--?-?-?-?-?- Negative 120 -?-?-?-?-?-?-?-?-?-?-?-?- JV- nst only tod ay, reactive. no complaints. RTO in one week 11/18/21 -?-?-?-?-?-?-?-?-?-?-?-?- 33w 1d 274 lb (+4 lb) 118/77 Negative -?-?-?-?-?-?-?-?-?-?-?-?- Negative 130 -?-?-?-?-?-?-?-?-?-?-?-?- SM- no vb lof go od fm no regualr ctx 11/24/21 -?-?-?-?-?-?-?-?-?-?-?-?- 34w 0d 271 lb 8 oz (+1 lb 8 oz) 112/70 Negative -?-?-?-?-?-?-?-?-?-?-?-?- Negative 130 -?-?-?-?-?-?-?-?-?-?-?-?- SM- no vb lof go od fm no regular ctx. nst reactive 12/01/21 -?-?-?-?-?-?-?-?-?-?-?-?- 35w 0d 278 lb (+8 lb) -?-?-?-?-?-?-?-?-?-?-?-?- 130 -?-?-?-?-?-?-?-?-?-?-?-?- SM nst reactive 12/08/21 -?-?-?-?-?-?-?-?-?-?-?-?- 36w 0d 273 lb (+3 lb) 138/88 Negative -?-?-?-?-?-?-?-?-?-?-?-?- Negative -?-?-?-?-?-?-?-?-?-?-?-?- JV- NST reactive . GBS collected by Dr. Stone 12/15/21 -?-?-?-?-?-?-?-?-?-?-?-?- 37w 0d 276 lb (+6 lb) 102/66 Negative -?-?-?-?-?-?-?-?-?-?-?-?- Negative -?-?-?-?-?-?-?-?-?-?-?-?- SM- no vb lof go od fm no regular ctx nst 12/22/21 -?-?-?-?-?-?-?-?-?-?-?-?- 38w 0d 275 lb (+5 lb) 120/84 Negative -?-?-?-?-?-?-?-?-?-?-?-?- Negative 130 -?-?-?-?-?-?-?-?-?-?-?-?- SM- no vb lof go od fm no regular ctx 12/29/21 -?-?-?-?-?-?-?-?-?-?-?-?- 39w 0d 277 lb 12.519 oz (+7 lb 12.519 oz) 128/86 -?-?-?-?-?-?-?-?-?-?-?-?- -?-?-?-?--?-?-?-?-?-?-?-?- NST FHR Rate Baby A Baseline: 130 Variability:: Moderate Accelerations:: 15 x 15 ROS Constitutional Constitutional: Reports systems reviewed and no addt'l complaints, except as documented Eyes Eyes: Denies change in vision ENT HEENT: Reports systems reviewed and no addt'l complaints, except as documented; Denies headache(s) Cardiovascular Cardiovascular: Reports systems reviewed and no addt'l complaints, except as documented; Denies chest pain or dyspnea Respiratory/Chest Respiratory/Chest: Reports systems reviewed and no addt'l complaints, except as documented Gastrointestinal Gastrointestinal: Reports systems reviewed and no addt'l complaints, except as documented; Denies abdominal pain Genitourinary Genitourinary: Reports systems reviewed and no addt'l complaints, except as documented, contractions Details: present (irregular) and movement Details: present; Denies dysuria or genital lesions Musculoskeletal Musculoskeletal: Reports systems reviewed and no addt'l complaints, except as documented Neurologic Neurologic: Reports systems reviewed and no addt'l complaints, except as documented Endocrine Endocrinology: Reports systems reviewed and no addt'l complaints, except as documented Vital Signs Vital Signs Vital Signs: 12/29/21 05:40 Temperature 98.2 F Temperature Source Temporal Pulse Rate 98 Respiratory Rate 16 Blood Pressure 128/86 H Blood Pressure Mean 100 Blood Pressure Source Monitor Blood Pressure Position Semi-Fowlers Blood Pressure Location Right Arm Pulse Ox 97 Oxygen Delivery Method Room Air Weight Weight: 277 lb 12.519 oz Body Mass Index (BMI) 50.8 Physical Exam Const alert, oriented x3, no apparent distress and healthy appearing HEENT normocephalic and moist oral mucous membranes Head and Scalp: atraumatic Neck full ROM, no lymphadenopathy, supple and thyroid normal General: trachea midline Lymph Lymphatic: no lymphadenopathy noted Chest inspection of chest normal Resp normal respiratory effort Cardio regular rate GI normal to inspection, nondistended, normoactive bowel sounds, soft to palpation and non-tender Inspection: gravid external exam normal Manual OB Exam: estimated gestational size appropriate, presentation cephalic, dilated, effaced and station Extremity normal to inspection General Extremity: Negative for edema Skin no rashes or lesions noted Neuro no focal motor deficits and deep tendon reflexes 2+ bilaterally Motor Exam: strength 5/5 throughout and clonus absent Psych mental status grossly normal Labs Labs Labs: Blood Type O POSITIVE Antibody Screen NEGATIVE Hct 28.5 % (37-47) L Hgb 9.0 g/dL (12.0-15.0) L Obstetrics US VZV IgG Antibody Not Reportable Rubella IgG Antibody > 500.0 IU/mL Hep Bs Antigen HIV 1&2 Antibody Nonreactive (Nonreactive) Glucose 1 Hr 50 gm 139 mg/dL (70-140) Rhogam given: No Miscellaneous Test Assessment & Plan (1) : QUALIFIERS: Weeks of gestation: 38 weeks Qualified Code(s): Z3A.38 - 38 weeks gestation of COMMENT: dec afp, nl PGT, Negative carrier; nl anatomy. GBS neg (2) Supervision of high risk , antepartum: COMMENT: PRR FRANKO: 01/05/22 boy Foster PC: Marian Spouse: Roshan (3) Conceived by in vitro fertilization: COMMENT: FET, PGT- echo normal, normal growth (4) UTI (urinary tract infection), affecting care of mother, antepartum: COMMENT: repeat negative (5) Hypothyroid: COMMENT: synthroid, check levels every trimester. 09/12-needs synthroid increased, recommend 125mcg daily, new script ordered, and repeat tsh and free t4 in 1 month (6) Previous section: COMMENT: plan RLTCS. Scheduled 12/29 @ 7:30am with SM (7) Obesity affecting : COMMENT: nl 1 tm gct. third tm testing (8) AMA (advanced maternal age) multigravida 35+: COMMENT: nl PGT
--- NOTE | 2021-12-29 07:27 | OP.PCM_ITS ---
Assessment & Plan (1) AMA (advanced maternal age) multigravida 35+: COMMENT: nl PGT (2) Obesity affecting : COMMENT: nl 1 tm gct. third tm testing (3) Previous section: COMMENT: plan RLTCS. Scheduled 12/29 @ 7:30am with SM (4) Hypothyroid: COMMENT: synthroid, check levels every trimester. 09/12-needs synthroid increased, recommend 125mcg daily, new script ordered, and repeat tsh and free t4 in 1 month (5) UTI (urinary tract infection), affecting care of mother, antepartum: COMMENT: repeat negative (6) Conceived by in vitro fertilization: COMMENT: FET, PGT- echo normal, normal growth (7) Supervision of high risk , antepartum: COMMENT: PRR FRANKO: 01/05/22 boy Foster PC: Marian Spouse: Roshan (8) : QUALIFIERS: Weeks of gestation: 38 weeks Qualified Code(s): Z3A.38 - 38 weeks gestation of COMMENT: dec afp, nl PGT, Negative carrier; nl anatomy. GBS neg (9) delivery delivered: COMMENT: rltcs bs boy foster 39 SM Maternal Data Information FRANKO Calculator Estimated Delivery Date Method Current WG Current Estimate 01/05/22 LMP (Certain) 39w 1d Final FRANKO Source: LMP Details Operative Information Date of Procedure: 12/29/21 Pre-Operative Diagnosis: Previous Post-Operative Diagnosis: same Indications for : Repeat Elective and Desires elective sterilization Classification: Scheduled Procedure Type: low transverse (and bilateral salpingectomy) long wall mining machine tender #1: Chu Nunez Type of Anesthesia: Spinal Special Medications: amy floseal methergine TXA Antibiotic Given: Ancef 3 grams IV x1 Drain: Zurita to straight drain Estimated Blood Loss: 800 Fluids Replaced: crystalloid Findings Description of Procedure: Spinal anesthesia was placed without difficulty. Zurita catheter was placed. The patient was placed in the dorsal supine position with leftward tilt. Patient was prepped and draped in the normal sterile fashion. Pfannenstiel skin incision was made with the scalpel and carried through to the underlying layer of fascia with the scalpel. Fascia was nicked in the midline and the incision extended laterally. The rectus bellies were dissected off superiorly and inferiorly with out complication both sharply and bluntly. The peritoneum was entered digitally. The incision was stretched and a low transverse uterine incision was made with the scalpel. The 's head was delivered atraumatically followed by the anterior and posterior shoulders without complication the rest of the infant delivered. The cord was clamped and cut and the was handed off to awaiting nurse. The placenta was delivered spontaneously immediately following and was noted to be intact and have a three- vessel cord. The uterus was exteriorized cleared of all clots and debris, and the incision was closed in a single layer closure using #1 Monocryl. Patient had desired sterilization and was counseled preoperatively regarding irreversibility and permanency. Therefore bilateral fallopian tubes were elevated and transected across using a LigaSure device starting proximally to distally without complication the entire fallopian tubes were removed. The ovaries and fallopian tubes were noted to be within normal limits. The uterus was returned to the maternal abdomen and gutters were cleared of all clots and debris. additional figure of eight sutures of 0 monocryl and 3-0 monocryl were needed for hemostasis as well as amy and floseal. mild atony noted and methergine and TXA given. The peritoneum was closed with 3-0 Monocryl in a running fashion. Gloves were changed prior to fascial closure. Fascia was closed with 0 PDS in a running fashion. Subcutaneous tissue was copiously irrigated and the skin was closed with 3-0 Monocryl in a subcuticular fashion. Mepilex dressing was applied without complication. Patient was taken to recovery in stable condition. Amniotic Membrane Rupture Type: Artificial Amniotic Fluid Description: Clear Placenta Disposition: [facility] Cord Vessel Description: 3 Vessels Cord Entanglement: None Delayed Cord Clamping: Yes Complications Risks of Surgery Discussed w/Patient: Bleeding, Infection, Need for Future C- Sections and Injury to surrounding structure(s) including bowel and bladder Vaginal Delivery Complication Complications: None Admit VTE Documentation VTE Present on Admission: No VTE Mechan Device Prophylaxis: SCD's Multi Select Codes Urinary/Genital Urinary/Genital CPT Codes: 95140 C/S+TL (bilateral salpingectomy) and 10177 Delivery [facility]
--- NOTE | 2021-12-29 07:27 | PCM.DC ---
Discharge Instructions Follow Up Care Test Results: Test results from this visit will be discussed in further detail at your follow-up appointment, if applicable. Discharge Plan Admission Admit Date/Time: 12/29/21 05:08 Attending Provider: Gabrielle Stone Primary Care Provider: Dayna Lloyd Discharge Orders/Prescriptions Prescriptions: No Action aspirin 81 mg tablet,chewable 81 mg PO DAILY RF: 0 omeprazole 20 mg capsule,delayed release(DR/EC) 20 mg PO DAILY RF: 0 guaifenesin [Mucinex] 600 mg Tablet Extended Release 12hr 1,200 mg PO BID RF: 0 levothyroxine 125 mcg tablet 125 mcg PO DAILY RF: 0 vit,[id number] 1 TABLET tablet 1 tablet PO DAILY@1200 RF: 0
--- NOTE | 2021-12-29 07:51 | FALS_PTH ---
PATIENT: ALEX MENDOZA LOC: [facility] U#:[id number] AGE/SX: 36/F [facility]: Dr. Gabrielle Stone MD : 1985 BED: 1 DIS: 12/31/2021 SPEC #: [id number] RECD: 12/29/21 11:47 STATUS: CHARLES RERigoberto #: [id number] PAN: 12/29/21 07:[address]: Gabrielle Stone DEPT: SURGICAL PATHOLOGY RECD BY: Thalia Wong ENTERED: 12/29/21 12:35 SP TYPE: FALL TUBES OTHR DR: Dr. Dayna Lloyd, DO Tissues: Fallopian tube Procedures: Surgery Specimen Level II HEADER OPERATION: Tubal ligation PRE-OP DIAGNOSIS: Sterilization TISSUE SUBMITTED: Fallopian tubes, tie on left MICROSCOPIC DIAGNOSIS Bilateral fallopian tubes, salpingectomy: Bilateral fallopian tubes, no pathologic diagnosis. ANALISA:sheila 12/30/2021 MICROSCOPIC DESCRIPTION Slides are reviewed. GROSS DESCRIPTION Received in fixative is one container labeled with the patient's name and designated bilateral fallopian tubes. The specimen consists of two fallopian tubes with an average length of 8 cm and has an average diameter of 0.6 cm. Both fallopian tubes have normal fimbriated ends. No mass lesions are identified. Administrative Law Judge sections are submitted in two cassettes as follows: 1 - right fallopian tube, 2 - left fallopian tube. / AM:sheila 12/29/2021 TC:4 CPT: 34174 x2
[2021-12-29] MEDS: Methylergonovine 0.2 MG/ML Ampul IM (07:57)
[2021-12-29] MEDS: Oxytocin 30 units/NS 500 ml 30 UNITS/500 ML IV.SOLN 167 UNITS IV (09:00)
[2021-12-29] MEDS: Ketorolac 30 MG/ML Syringe IV ×3 (09:34→22:30)
[2021-12-29] MEDS: Senna/Docusate Sodium 1 Tablet PO (10:31)
[2021-12-29] MEDS: oxyCODONE 5 MG Tablet PO ×3 (10:31→19:31)
[2021-12-29] MEDS: Pantoprazole Sodium 20 MG Tablet PO (10:32)
[2021-12-29] MEDS: guaiFENesin 1,200 MG Tablet 1200 MG PO ×2 (10:32→22:30)
[2021-12-29 11:49] LABS: Pathology Specimen OB SEE PATHOLOGY REPORT
[2021-12-29] MEDS: Lactated Ringers 1,000 ML 100 ML IV (12:10)
[2021-12-29] MEDS: Prenatal Vits Tablet 1 TABLET PO (12:24)
[2021-12-30 00:45] VITALS: BP 141/73; PULSE 86; RESP 18; TEMP 36.6; O2SAT 96
[2021-12-30] MEDS: Acetaminophen 500 MG Tablet 1000 MG PO ×4 (00:50→18:05)
[2021-12-30 04:15] VITALS: BP 128/65; PULSE 80; RESP 16; TEMP 36.7; O2SAT 95
[2021-12-30] MEDS: Ketorolac 30 MG/ML Syringe IV (04:19)
[2021-12-30] MEDS: 0.9% Saline Lock 10 ML Syringe IV ×2 (04:19→10:48)
[2021-12-30] MEDS: Levothyroxine 125 MCG Tablet PO (06:18)
[2021-12-30 06:30] LABS: Hematocrit 27.7 % (37-47); Hemoglobin 8.6 g/dL (12.0-15.0); Mean Corpuscular Hgb 25.4 pg (27.0-32.0); Mean Corpuscular Volume 81.7 fL (81-99); Mean Platelet Vol. 9.9 fl (6.2-12.0); Platelet Count 309 K/mm3 (150-450); RBC Distribution Width CV 17.4 % (11.6-14.6); RBC Distribution Width SD 50.5 fl (35.1-43.9); Red Blood Count 3.39 M/mm3 (4.2-5.4); White Blood Count 11.4 K/mm3 (4.4-11.0)
[2021-12-30 08:15] VITALS: BP 130/80; PULSE 80; RESP 16; TEMP 36.8; O2SAT 96
[2021-12-30] MEDS: Senna/Docusate Sodium 1 Tablet PO (10:43)
[2021-12-30] MEDS: Naproxen 500 MG Tablet PO ×2 (10:44→18:05)
[2021-12-30] MEDS: guaiFENesin Dm 10 ML UDC PO ×2 (10:45→21:44)
[2021-12-30] MEDS: guaiFENesin 1,200 MG Tablet 1200 MG PO ×2 (10:45→21:44)
[2021-12-30] MEDS: Pantoprazole Sodium 20 MG Tablet PO (10:46)
[2021-12-30] MEDS: Prenatal Vits Tablet 1 TABLET PO (12:22)
[2021-12-30 14:27] VITALS: BP 121/65; PULSE 77; RESP 16; TEMP 36.7; O2SAT 95
[2021-12-30] MEDS: oxyCODONE 5 MG Tablet PO (16:13)
--- NOTE | 2021-12-30 17:16 | PCM.PN.OB ---
Subjective Subjective Patient doing well without complaints. Tolerating PO. Ambulating and voiding without difficulty. feeding well. Denies chest pain, shortness of breath, calf pain/swelling, fevers, chills, lightheadedness. Objective Data Objective Data Vital Signs: Vital Signs Temp Pulse Resp BP Pulse Ox 98.0 F 77 16 121/65 H 95 12/30/21 14:27 12/30/21 14:27 12/30/21 14:27 12/30/21 14:27 12/30/21 14:27 Oxygen Delivery Method Room Air Weight: 277 lb 12.519 oz Body Mass Index (BMI) 50.8 Intake & Output: Intake and Output for Last 24 Hours 12/28/21 12/29/21 12/30/21 23:59 23:59 23:59 Intake Total 5561.67 / 5561.67 110 / 110 Output Total 3135 / 3135 500 / 500 Balance 2426.67 / 2426.67 -390 / -390 Lab / Micro Data Result Diagrams: 12/30/21 06:24 Labs: Laboratory Results - last 24 hr 12/30/21 06:24: WBC 11.4 H, RBC 3.39 L, Hgb 8.6 L, Hct 27.7 L, MCV 81.7, MCH 25.4 L, MCHC 31.0 L, RDW Std Deviation 50.5 H, RDW Coeff of Tong 17.4 H, Plt Count 309, MPV 9.9 Micro: Microbiology 12/29/21 06:10 Nasal Secretion SARS-CoV-2 Antigen (Rapid) - Final ROS Constitutional Constitutional: Reports systems reviewed and no addt'l complaints, except as documented Cardiovascular Cardiovascular: Reports systems reviewed and no addt'l complaints, except as documented Respiratory/Chest Respiratory/Chest: Reports systems reviewed and no addt'l complaints, except as documented Gastrointestinal Gastrointestinal: Reports systems reviewed and no addt'l complaints, except as documented Physical Exam Const alert, oriented x3 and no apparent distress HEENT Head and Scalp: atraumatic Resp normal respiratory effort GI soft to palpation and non-tender Inspection: incision intact, healing well and drainage (none) Bimanual Exam - Vag & Uterus: uterus non-tender Uterus Palpation: uterus fundus firm (below Umbilicus) Assessment & Plan (1) delivery delivered: COMMENT: rltclev bs boy foster 39 SM PLAN: routine care iv venofer
--- NOTE | 2021-12-30 19:44 | NURSING ---
this RN has reviewed and agrees with charting completed by alessandro Joshi RN
[2021-12-30 20:10] VITALS: BP 149/79; PULSE 87; RESP 16; TEMP 36.4; O2SAT 97
[2021-12-31] MEDS: Acetaminophen 500 MG Tablet 1000 MG PO ×3 (01:00→12:47)
[2021-12-31] MEDS: Naproxen 500 MG Tablet PO ×2 (02:06→11:14)
[2021-12-31 02:16] VITALS: BP 146/73; PULSE 71; RESP 16; TEMP 36.7; O2SAT 96
[2021-12-31] MEDS: guaiFENesin Dm 10 ML UDC PO (06:17)
[2021-12-31] MEDS: Levothyroxine 125 MCG Tablet PO (06:17)
[2021-12-31 08:20] VITALS: BP 132/72; PULSE 70; RESP 16; TEMP 36.6; O2SAT 96
--- NOTE | 2021-12-31 09:37 | PCM.PN.OB ---
Subjective Subjective Patient doing well without complaints. Tolerating PO. Ambulating and voiding without difficulty. Feeding well. Denies chest pain, shortness of breath, calf pain/swelling, fevers, chills, lightheadedness. Objective Data Objective Data Vital Signs: Vital Signs Temp Pulse Resp BP Pulse Ox 97.8 F 70 16 132/72 H 96 12/31/21 08:20 12/31/21 08:20 12/31/21 08:20 12/31/21 08:20 12/31/21 08:20 Oxygen Delivery Method Room Air Weight: 277 lb 12.519 oz Body Mass Index (BMI) 50.8 Intake & Output: Intake and Output for Last 24 Hours 12/29/21 12/30/21 12/31/21 23:59 23:59 23:59 Intake Total 5561.67 / 5561.67 110 / 110 Output Total 3135 / 3135 500 / 500 Balance 2426.67 / 2426.67 -390 / -390 Lab / Micro Data Result Diagrams: 12/30/21 06:24 Micro: Microbiology 12/29/21 06:10 Nasal Secretion SARS-CoV-2 Antigen (Rapid) - Final ROS Constitutional Constitutional: Reports systems reviewed and no addt'l complaints, except as documented Cardiovascular Cardiovascular: Denies chest pain, dizziness, dyspnea or irregular heart rhythm Respiratory/Chest Respiratory/Chest: Denies cough, pain on inspiration or shortness of breath at rest Gastrointestinal Gastrointestinal: Denies abdominal pain, nausea or vomiting Genitourinary Genitourinary: Denies burning urination Musculoskeletal Musculoskeletal: Denies muscle cramps, muscle spasms or muscle weakness Neurologic Neurologic: Denies confusion, dizziness, headache(s) or lack of coordination Psychiatric Psychiatric: Denies anxiety, behavioral changes or depression Physical Exam HEENT normocephalic Resp normal respiratory effort and normal air movement GI soft to palpation, non-tender and non-distended Rectal Exam: other Other Details: Incision is clean, dry, and intact no CVA tenderness Extremity normal to inspection General Extremity: edema bilateral (trace ) Assessment & Plan (1) delivery delivered: COMMENT: rltclev bs boy foster 39 SM PLAN: s/p LTCS PPD # 2 1. routine post care 2. breast feeding- support given 3. rh positive 4. rubella immune 5. plan for dc to home today
[2021-12-31] MEDS: Senna/Docusate Sodium 1 Tablet PO (11:14)
[2021-12-31] MEDS: guaiFENesin 1,200 MG Tablet 1200 MG PO (11:15)
[2021-12-31] MEDS: Pantoprazole Sodium 20 MG Tablet PO (11:18)
[2021-12-31] MEDS: Prenatal Vits Tablet 1 TABLET PO (12:50)
[2021-12-31 14:33] VITALS: BP 135/68; PULSE 84; RESP 20; TEMP 36.6; O2SAT 96
== END 2021-12-31 17:10 | disposition home or self-care (01) | DRG 785 ==
PROVIDERS: Admitting Provider Obstetrics & Gynecology; PCP Internal Medicine; Visit Provider Obstetrics & Gynecology
PROC: 10D00Z1 Extraction of Products of Conception, Low, Open Approach (ICD-10-PCS; CPT 59514; principal; 2021-12-29 07:15)
DX: O34.219 Maternal care for unspecified type scar from previous cesarean delivery (principal); E03.9 Hypothyroidism, unspecified; Z79.82 Long term (current) use of aspirin; Z3A.38 38 weeks gestation of pregnancy; Z37.0 Single live birth; O99.284 Endocrine, nutritional and metabolic diseases complicating childbirth; Z87.440 Personal history of urinary (tract) infections; Z79.890 Hormone replacement therapy; O99.214 Obesity complicating childbirth; E66.9 Obesity, unspecified; Z30.2 Encounter for sterilization
CPT/HCPCS: 59025; 59050; 85025; 85027; 86850; 86900; 86901; 87426; 88302; 99218; 99251; J1756; J7120; A4216; G0378; G0463; J3490

== ENCOUNTER → 2022-02-28 | Outpatient (CLI) | payer OTHER, SELFPAY ==
[2022-02-28 14:21] LABS: T4 Free Direct 1.02 ng/dL (0.76-1.46); Thyroid Stim Hormone (TSH) 0.22 uIU/mL (0.358-3.74)
== END | disposition home or self-care (01) ==
LOC: PAVLAB 13:36
PROVIDERS: PCP Internal Medicine; Referring Provider Obstetrics & Gynecology; Visit Provider Obstetrics & Gynecology
DX: E05.90 Thyrotoxicosis, unspecified without thyrotoxic crisis or storm (principal)
CPT/HCPCS: 36415; 84439; 84443

== ENCOUNTER → 2023-03-01 | Outpatient (CLI) | payer OTHER, SELFPAY ==
[2023-03-01 13:26] LABS: Hemoglobin A1c 5.4 % (3.8-5.6)
[2023-03-01 14:14] LABS: Estradiol 230.1 pg/mL; Follicle Stimulating Hormone 5.5 mIU/mL
[2023-03-05 07:07] LABS: 17-Hydroxyprogesterone 60 ng/dL (.)
[2023-03-07 11:09] LABS: Testosterone Free 0.7 pg/mL (0.0-4.2)
== END | disposition home or self-care (01) ==
LOC: PAVLAB 12:42
PROVIDERS: PCP Internal Medicine; Referring Provider Obstetrics & Gynecology; Visit Provider Obstetrics & Gynecology
DX: E28.2 Polycystic ovarian syndrome (principal)
CPT/HCPCS: 36415; 82670; 83001; 83036; 83498; 84146; 84402

== ENCOUNTER → 2023-03-28 | Outpatient (CLI) | payer OTHER, SELFPAY ==
--- NOTE | 2023-03-28 11:12 | RAD_ITS ---
INDICATION: RIGHT FOOT PAIN THAT STARTED A MONTH AGO. NO KNOWN INJURY. EXAMINATION/TECHNIQUE: X-RAY - RIGHT XR Foot Min 3 Views 2 VIEWS COMPARISON: FINDINGS: BONES: No fracture demonstrated. JOINTS: No dislocation. SOFT TISSUES: Unremarkable. RAD/Foot 2 Views IMPRESSION: Unremarkable study. No evidence of fracture. Electronically Signed: Chloe Galicia MD at 18:36 EDT ,
== END | disposition home or self-care (01) ==
LOC: RAD 11:04
PROVIDERS: PCP Internal Medicine; Referring Provider Internal Medicine; Visit Provider Internal Medicine
DX: M79.671 Pain in right foot (principal)
CPT/HCPCS: 73620

== ENCOUNTER 2023-07-10 14:50 | Outpatient (RCR) | payer SELFPAY | END 2023-07-24 23:59 | LOC: NS 14:50 | PROVIDERS: PCP Internal Medicine; Referring Provider Obstetrics & Gynecology; Visit Provider Obstetrics & Gynecology | DX: Z71.3 Dietary counseling and surveillance (principal); E66.01 Morbid (severe) obesity due to excess calories; Z68.42 Body mass index [BMI] 45.0-49.9, adult | CPT/HCPCS: 97802 ==

== ENCOUNTER 2023-09-03 08:55 | Outpatient (RCR) | payer SELFPAY | END 2023-09-23 23:59 | LOC: NS 08:55 | PROVIDERS: PCP Internal Medicine; Referring Provider Obstetrics & Gynecology; Visit Provider Obstetrics & Gynecology | DX: Z71.3 Dietary counseling and surveillance (principal); E28.2 Polycystic ovarian syndrome; E66.01 Morbid (severe) obesity due to excess calories; Z68.42 Body mass index [BMI] 45.0-49.9, adult | CPT/HCPCS: 97803 ==

== ENCOUNTER → 2023-09-03 | Outpatient (CLI) | payer OTHER, SELFPAY ==
[2023-09-03 11:07] LABS: Cholesterol 173 mg/dL (200); High Density Lipoprotein 52 mg/dL; Triglycerides 116 mg/dL; Very Low Density Lipoprotein 23 mg/dL (5-40)
== END | disposition home or self-care (01) ==
LOC: LAB 09:30
PROVIDERS: PCP Internal Medicine; Referring Provider Obstetrics & Gynecology; Visit Provider Obstetrics & Gynecology
DX: E28.2 Polycystic ovarian syndrome (principal)
CPT/HCPCS: 36415; 80061

== ENCOUNTER 2023-10-30 11:22 | Outpatient (RCR) | payer SELFPAY | END 2023-11-22 23:59 | LOC: NS 11:22 | PROVIDERS: PCP Internal Medicine; Referring Provider Obstetrics & Gynecology; Visit Provider Obstetrics & Gynecology | DX: Z71.3 Dietary counseling and surveillance (principal); E66.01 Morbid (severe) obesity due to excess calories; E28.2 Polycystic ovarian syndrome; Z68.42 Body mass index [BMI] 45.0-49.9, adult | CPT/HCPCS: 97803 ==

== ENCOUNTER → 2024-03-06 | Outpatient (CLI) | payer OTHER, SELFPAY ==
[2024-03-06 10:16] LABS: Absolute Lymphocyte Count 2.45 X10^3/uL (0.83-4.51); Absolute Neutrophil Count 3.8 X10^3/uL (2.0-7.7); Basophil# 0.03 X10^3/uL; Basophil% 0.4 % (0-1); Eosinophil# 0.11 X10^3/uL; Eosinophils% 1.6 % (0-5); Hematocrit 36.4 % (37-47); Hemoglobin 11.1 g/dL (12.0-15.0); Lymphocyte # 2.45 X10^3/ul (0.83-4.51); Lymphocyte % 35.9 % (19-41); Mean Corp Hgb Conc 30.5 g/dL (32-36); Mean Corpuscular Hgb 24.8 pg (27.0-32.0); Mean Corpuscular Volume 81.4 fL (81-99); Mean Platelet Vol. 9.3 fl (6.2-12.0); Monocyte# 0.43 X10^3/uL; Monocyte% 6.3 % (0-10); NRBC Flagged by Analyzer 0 % (0-5); Neutrophil # 3.79 X10^3/uL (2.7-7.7); Neutrophil % 55.7 % (47-70); Platelet Count 335 K/mm3 (150-450); RBC Distribution Width CV 16.7 % (11.6-14.6); RBC Distribution Width SD 49.6 fl (35.1-43.9); Red Blood Count 4.47 M/mm3 (4.2-5.4); White Blood Count 6.8 K/mm3 (4.4-11.0)
[2024-03-06 10:48] LABS: Vitamin D,25 Hydroxy 23.9 ng/mL
[2024-03-06 14:44] LABS: AST(SGOT) 21 U/L (15-37); Alanine Aminotransfer ALT/SGPT 27 U/L (13-56); Albumin, Serum 3.6 g/dL (3.2-5.0); Alkaline Phosphatase 78 U/L (45-117); Anion Gap 4 (5-15); BUN 15 mg/dL (7-18); BUN/Creat Ratio 27.3 RATIO (10-20); Calcium,Total 8.9 mg/dL (8.5-10.1); Chloride 108 mmol/L (98-107); Cholesterol 203 mg/dL (200); Creatinine, Serum 0.55 mg/dL (0.55-1.02); EST Glomerular Filtration Rate 132 mL/min (>60); Est Glom Filt Rate - Afr Amer 160 mL/min (>60); Globulin 3.6 g/dL (2.2-4.2); Glucose 103 mg/dL (74-106); High Density Lipoprotein 61 mg/dL; Protein, Total 7.2 g/dL (6.4-8.2); Sodium Level 139 mmol/L (136-145); T4 Free Direct 0.86 ng/dL (0.76-1.46); Thyroid Stim Hormone (TSH) 4.63 uIU/mL (0.358-3.74); Triglycerides 96 mg/dL; Very Low Density Lipoprotein 19 mg/dL (5-40)
== END | disposition home or self-care (01) ==
LOC: PAVLAB 09:58
PROVIDERS: PCP Internal Medicine; Referring Provider Obstetrics & Gynecology; Visit Provider Obstetrics & Gynecology
DX: Z13.1 Encounter for screening for diabetes mellitus (principal); Z13.21 Encounter for screening for nutritional disorder; E28.2 Polycystic ovarian syndrome; Z13.0 Encounter for screening for diseases of the blood and blood-forming organs and certain disorders involving the immune mechanism; Z13.220 Encounter for screening for lipoid disorders
CPT/HCPCS: 36415; 80053; 80061; 82306; 84439; 84443; 85025

== ENCOUNTER → 2025-03-11 | Outpatient (CLI) | payer OTHER, SELFPAY | END | disposition home or self-care (01) | LOC: LABSPEC 16:27 | PROVIDERS: PCP Internal Medicine; Referring Provider Obstetrics & Gynecology; Visit Provider Obstetrics & Gynecology | DX: Z12.4 Encounter for screening for malignant neoplasm of cervix (principal) | CPT/HCPCS: 87624; 88175; G0145 ==

== ENCOUNTER → 2025-03-12 | Outpatient (CLI) | payer OTHER, SELFPAY ==
[2025-03-12 10:22] LABS: Absolute Lymphocyte Count 2.33 X10^3/uL (0.83-4.51); Basophil# 0.02 X10^3/uL; Basophil% 0.2 % (0-1); Eosinophil# 0.14 X10^3/uL; Eosinophils% 1.6 % (0-5); Hematocrit 32.9 % (37-47); Hemoglobin 9.8 g/dL (12.0-15.0); Lymphocyte # 2.33 X10^3/ul (0.83-4.51); Lymphocyte % 25.8 % (19-41); Mean Corp Hgb Conc 29.8 g/dL (32-36); Mean Corpuscular Hgb 21.8 pg (27.0-32.0); Mean Corpuscular Volume 73.1 fL (81-99); Mean Platelet Vol. 9.5 fl (6.2-12.0); Monocyte# 0.52 X10^3/uL; Monocyte% 5.8 % (0-10); NRBC Flagged by Analyzer 0 % (0-5); Neutrophil # 5.98 X10^3/uL (2.7-7.7); Neutrophil % 66.3 % (47-70); Platelet Count 419 K/mm3 (150-450); RBC Distribution Width CV 18.2 % (11.6-14.6); RBC Distribution Width SD 47.4 fl (35.1-43.9)
[2025-03-12 10:48] LABS: Hemoglobin A1c 5.7 % (<=5.6)
[2025-03-12 11:47] LABS: ALB/GLOB Ratio 1.4 RATIO (0.9-2.4); AST(SGOT) 21 U/L (<=31); Alanine Aminotransfer ALT/SGPT 15 U/L (<=34); Alkaline Phosphatase 74 U/L (35-104); Anion Gap 12 (5-15); BUN 13 mg/dL (4-19); BUN/Creat Ratio 19.8 RATIO (10-20); Carbon Dioxide 22.3 mmol/L (21.0-32.0); Chloride 104 mmol/L (98-108); Cholesterol 208 mg/dL (<=200); Creatinine, Serum 0.68 mg/dL (0.70-1.20); EST Glomerular Filtration Rate 114 (>60); Globulin 2.8 g/dL (2.2-4.2); Glucose 92 mg/dL (70-99); High Density Lipoprotein 73 mg/dL; Low Density Lipoprotein Calc. 115 mg/dL; Potassium 4.2 mmol/L (3.3-5.1); Protein, Total 6.7 g/dL (5.9-8.4); Sodium Level 138 mmol/L (133-145); Total Bilirubin 0.42 mg/dL (0.00-1.30); Triglycerides 103 mg/dL; Very Low Density Lipoprotein 21 mg/dL (5-40); Vitamin D,25 Hydroxy 34.8 ng/mL (30-100); cholesterol:hdl ratio screen 2.87
== END | disposition home or self-care (01) ==
LOC: LAB 09:21
PROVIDERS: PCP Internal Medicine; Referring Provider Obstetrics & Gynecology; Visit Provider Obstetrics & Gynecology
DX: E28.2 Polycystic ovarian syndrome (principal); E88.810 Metabolic syndrome
CPT/HCPCS: 36415; 80053; 80061; 82306; 83036; 84443; 85025

== ENCOUNTER → 2025-03-25 | Outpatient (CLI) | payer OTHER, SELFPAY ==
--- OUTSIDE RECORDS SUMMARY | 2025-03-25 22:40 | XMS RPT_ITS | CCD ---
Author Organization [facility] Care Team Providers Care [employer] Tech Name Role Phone MASEELALL, SUZAN Unavailable Unavailable MASEELALL, SUZAN Unavailable Unavailable QUEEN, BEATRICE M Unavailable Unavailable QUEEN, BEATRICE M Unavailable Unavailable QUEEN, BEATRICE M Unavailable Unavailable QUEEN, BEATRICE M Unavailable Unavailable QUEEN, BEATRICE M Unavailable Unavailable QUEEN, BEATRICE M Unavailable Unavailable QUEEN, BEATRICE M Unavailable Unavailable QUEEN, BEATRICE M Unavailable Unavailable QUEEN, BEATRICE M Unavailable Unavailable QUEEN, BEATRICE M Unavailable Unavailable QUEEN, BEATRICE M Unavailable Unavailable QUEEN, BEATRICE M Unavailable Unavailable QUEEN, BEATRICE M Unavailable Unavailable QUEEN, BEATRICE M Unavailable Unavailable QUEEN, BEATRICE M Unavailable Unavailable QUEEN, BEATRICE M Unavailable Unavailable QUEEN, BEATRICE M Unavailable Unavailable QUEEN, BEATRICE M Unavailable Unavailable QUEEN, BEATRICE M Unavailable Unavailable QUEEN, BEATRICE M Unavailable Unavailable QUEEN, BEATRICE M Unavailable Unavailable QUEEN, BEATRICE M Unavailable Unavailable QUEEN, BEATRICE M Unavailable Unavailable QUEEN, BEATRICE M Unavailable Unavailable Moretuzzo Richar Unavailable Unavailable Moretuzzo, Richar Unavailable Unavailable QUEEN, BEATRICE M Unavailable Unavailable QUEEN, BEATRICE M Unavailable Unavailable QUEEN, BEATRICE M Unavailable Unavailable QUEEN, BEATRICE M Unavailable Unavailable Tiffany Smith Unavailable Unavailable PROVIDER, UNKNOWN Unavailable Unavailable Janice Lloyd Unavailable Unavailable Unavailable Unavailable Unavailable JACQUELINE RUIZ Attending Unavailable JACQUELINE RUIZ Primary Care Unavailable JACQUELINE RUIZ Admitting Unavailable MEÑO RAI Referring Unavailable RANDALL WINTER Consulting Unavailable AA NO PCP, NO PCP Primary Care Unavailable QUEEN, BEATRICE Townsend Attending Unavailable QUEEN, BEATRICE M Admitting Unavailable MARILEE WILDER Consulting Unavailable Janice Lloyd Unavailable Unavailable Unavailable Unavailable Unavailable Dr. Janice Lloyd Primary Care Provider Dr. Janice Lloyd Referring Provider Dr. Gabrielle Stone Attending Provider Dr. Angela Campoverde Attending Provider Oberhauser, Janice L Unavailable Janice Orlando Unavailable Unavailable Obershayne, Dr. Mcintosh Primary Care Provider Obershayne, Dr. Mcintosh Referring Provider [phone] Dr. Gabrielle Stone Attending Provider [phone] Bertha, Dr. Anthony Admit Provider [phone] Marcanita, Dr. Anthony Other Provider [phone] Oberhauser, Dr. Janice Carrera Attending Unava ilable Oberhauser, Dr. Janice Carrera Referring Unava ilable Oberhauser, Dr. Janice Carrera Primary Care Unava ilable Oberhauser, Dr. Janice Carrera Attending Unava ilable Oberhauser, Dr. Janice Carrera Referring Unava ilable Oberhauser, Dr. Janice Carrera Primary Care Unava ilable Oberhauser, Dr. Janice Carrera Attending Unava ilable Oberhauser, Dr. Janice Carrera Referring Unava ilable Oberhauser, Dr. Janice Carrera Primary Care Unava ilable Oberhauser DO, Janice Weaver Primary Care Provider Obyeni, Dr. Mcintosh Primary Care Provider Obershayne, Dr. Mcintosh Referring Provider [phone] Dr. Gabrielle Stone Attending Provider [phone] Obyeni, Dr. Mcintosh Primary Care Provider Prema, Dr. Mcintosh Referring Provider [phone] Dr. Gabrielle Stone Attending Provider [phone] Obyeni, Dr. Mcintosh Primary Care Provider Prema, Dr. Mcintosh Referring Provider [phone] Dr. Gabrielle Stone Attending Provider Dr. Janice Lloyd Primary Care Provider Dr. Janice Lloyd Referring Provider Dr. Gabrielle Stone Attending Provider Oberhauser DO, Janice L Unavailable [phone] OBERHAUSER, JANICE L Attending Unavailable OBERHAUSER, JANICE L Referring Unavailable OBERHAUSER, JANICE L Primary Care Unavailable OBERHAUSER, JANICE L Attending Unavailable OBERHAUSER, JANICE L Referring Unavailable OBERHAUSER, JANICE L Primary Care Unavailable OBERHAUSER, JANICE L Primary Care Unavailable Oberhauser DO, Janice L Unavailable Oberhauser DO, Janice L Primary Care Provider [phone] OBERHAUSER, JANICE L Primary Care Unavailable RUDDY SMITH Attending Unavailable OBERHAUSER, JANICE L Primary Care Unavailable MARCEL VUONG Attending Unavailable Obyeni LUNA, Dr. Mcintosh Primary Care Provider Obyeni LUNA, Dr. Mcintosh Referring Provider Bertha NG, Dr. Anthony Attending Provider Bertha NG, Dr. Anthony Referring Provider Oberhauser, Janice Referring Unavailable Oberhauser, Janice Primary Care Unavailable Gabrielle Stone Attending Unavailable Oberhauser, Janice Primary Care Unavailable Gabrielle Stone Referring Unavailable Gabrielle Stone Attending Unavailable Oberhauser, Janice Primary Care Unavailable Gabrielle Stone Referring Unavailable Gabrielle Stone Attending Unavailable Allergies Allergy Classification Reported Allergen(s) Allergy Type Date of Onset Reaction(s) Facility Sulfonamides (antibiotic) (3 sources) Sulfonamides (Antibiotic); Translations: [sulfa] Drug Allergy [facility] Repository (7 sources) Sulfonamides (Antibiotic); Translations: [sulfa] drug allergy [facility] Work Phone: (20 sources) Sulfonamides (Antibiotic); Translations: [SULFA (SULFONAMIDE ANTIBIOTICS)] Allergy to substance [facility] Work Phone: (2 sources) Sulfonamides (Antibiotic) Hives/Urticaria [facility] Medications Current Medications Medication Drug Class(es) Dates Sig (Normalized) Sig (Original) [id number] 200 actuat albuterol 0.09 mg/actuat metered dose inhaler (3 sources) beta2-Adrenergic Agonist Start: 06-05-2024 End: 06-05-2025 take 2 puff(s) by inhalation every six hours for wheezing albuterol 90 mcg/actuation inhaler Indications: Acute rhinosinusitis Inhale 2 puffs every 6 hours if needed for wheezing. 18 g 06/05/2024 06/05/2025 Active amoxicillin 875 mg oral tablet (1 source) Penicillin-class Antibacterial Start: 12-24-2021 End: 01-02-2022 take 1 tablet by mouth twice daily at mealtime amoxicillin 875 mg oral tablet ; 1 tab(s) orally 2 times a day x 10 days. Take with food. Quantity: 20 Refills: 0 Ordered: 24-Dec-2021 Janice Orlando Start: 24-Dec-2021 End: 02-Jan-2022 Generic Substitution Allowed Comments: Finish all this medication unless otherwise directed by prescriber. Comment on above: Finish all this medi cation unless otherwise directed by prescriber. amoxicillin 875 mg / clavulanate 125 mg oral tablet (1 source) Penicillin-class Antibacterial Start: 12-31-2024 End: 01-10-2025 take 1 tablet by mouth twice daily amoxicillin-pot clavulanate (Augmentin) 875-125 mg tablet Indications: Acute non-recurrent maxillary sinusitis Take 1 tablet by mouth 2 times a day for 10 days. 20 tablet 12/31/2024 01/10/2025 Active azithromycin 250 mg oral tablet (1 source) Macrolide Antimicrobial Start: 06-05-2024 End: 06-10-2024 azithromycin (Zithromax) 250 mg tablet Indications: Acute rhinosinusitis Take 2 tablets (500 mg) on Day 1, followed by 1 tablet (250 mg) once daily on Days 2 through 5. 6 tablet 06/05/2024 06/10/2024 Active 24 hr buPROPion hydrochloride 150 mg extended release oral tablet (3 sources) Aminoketone Start: 03-11-2025 take 1 tablet by mouth once daily in the morning Bupropion Hcl (Wellbutrin Xl) 150 mg tablet extended release 24 hr Active 150 mg PO EVERY MORNING March 11, 2025 12:00am 12 hr buPROPion hydrochloride 90 mg / naltrexone hydrochloride 8 mg extended release oral tablet (3 sources) Opioid Antagonist, Aminoketone Start: 03-11-2025 Naltrexone-Bupropion (Contrave) 8-90 mg tablet extended release Active 2 {tbl} PO TWICE A DAY 336 March 11, 2025 12:00am cyclobenzaprine hydrochloride 10 mg oral tablet (1 source) Muscle Relaxant Start: 08-12-2021 take 10 mg by mouth three times daily Cyclobenzaprine Active 10 MG PO THREE TIMES A DAY August 12, 2021 5:35pm Desogestrel-Ethinyl Estradiol (12 sources) Progestin, Estrogen Start: 03-11-2025 take 0.15 tablet by mouth once daily Desogestrel-Ethinyl Estradiol (Isibloom) 0.15-0.03 mg tablet Active 1 {tbl} PO daily March 11, 2025 12:00am Start: 02-17-2025 End: 03-11-2025 take 0.15 tablet by mouth once daily Desogestrel-Ethinyl Estradiol (Apri) 0.15-0.03 mg tablet Discontinued 1 {tbl} PO daily February 17, 2025 11:17am March 11, 2025 1:25pm Start: 05-12-2024 take 1 tablet by christiano th in the morning Isibloom 0.15-0.03 mg tablet Take 1 tablet by mouth early in the morning.. 05/12/2024 Active Start: 03-06-2024 End: 02-17-2025 take 0.15 tablet by mouth once daily Desogestrel-Ethinyl Estradiol (Apri) 0.15-0.03 mg tablet Discontinued 1 {tbl} PO daily March 06, 2024 12:00am February 17, 2025 11:17am dextromethorphan hydrobromide 15 mg / guaiFENesin 400 mg / pseudoephedrine hydrochloride 60 mg oral tablet (1 source) alpha-Adrenergic Agonist, Uncompetitive F-ozgmnw-W-aspartate Receptor Antagonist, Sigma-1 Agonist Start: 06-05-2024 End: 06-12-2024 take 1 tablet by mouth three times daily dgtwzfrlepncujw-KO-vyidkpyzyud (Capmist DM) 60-15-400 mg tablet Indications: Acute rhinosinusitis Take 1 tablet by mouth 3 times a day for 7 days. 21 tablet 06/05/2024 06/12/2024 Active doxycycline monohydrate 50 mg oral capsule (4 sources) Tetracycline-class Drug Start: 03-06-2024 take 1 capsule by mouth once daily Doxycycline Monohydrate 50 mg capsule Active 50 mg PO DAILY March 06, 2024 12:00am Start: 01-31-2023 End: 02-10-2023 doxycycline (Vibramycin) 100 mg capsule Indications: Abscess Take 1 capsule (100 mg) by mouth 2 times a day for 10 days. Take with at least 8 ounces (large glass) of water, do not lie down for 30 minutes after 20 capsule 0 01/31/2023 02/10/2023 Active fluticasone propionate 0.05 mg/actuat metered dose nasal spray (2 sources) Corticosteroid Start: 06-05-2024 End: 06-05-2025 take 1 spray(s) nasal route once daily fluticasone (Flonase) 50 mcg/actuation nasal spray Indications: Acute rhinosinusitis Administer 1 spray into each nostril once daily. Shake gently. Before first use, prime pump. After use, clean tip and replace cap. 16 g 06/05/2024 09/22/2024 Discontinued (Therapy completed) levothyroxine sodium 0.125 mg oral tablet (20 sources) l-Thyroxine Start: 03-11-2025 Levothyroxine 125 mcg tablet Active 100 ug PO DAILY March 11, 2025 1:23pm Start: 03-10-2024 End: 09-22-2025 take 1 tablet by mouth once daily in the morning levothyroxine (Synthroid, Levoxyl) 100 mcg tablet Indications: Acquired hypothyroidism Take 1 tablet (100 mcg) by mouth early in the morning.. Take on an empty stomach at the same time each day, either 30 to 60 minutes prior to breakfast 90 tablet 3 10/29/2024 Active Start: 06-14-2023 End: 03-11-2025 Levothyroxine 125 mcg tablet Discontinued 88 ug PO DAILY June 14, 2023 2:59pm March 11, 2025 1:25pm Start: 06-14-2023 take 88 ug by mouth once daily Levothyroxine Active 88 MCG PO DAILY June 14, 2023 1:59pm Start: 03-12-2023 End: 03-11-2024 take 1 tablet by mouth once daily Synthroid 88 mcg tablet Indications: Acquired hypothyroidism Take 1 tablet (88 mcg) by mouth once daily. 90 tablet 3 03/12/2023 03/10/2024 Discontinued (Therapy completed) Start: 09-12-2021 take 1 tablet by christiano th once daily Levothyroxine Sodium 137 MCG Oral Tablet TAKE 1 TABLET DAILY DIRECTED. Quantity: 90 Refills: 3 Ordered: 12-Sep-2022 Janice Lloyd DO Start : 12-Sep-2021 Active Start: 09-12-2021 End: 06-14-2023 take 1 tablet by mouth once daily Levothyroxine 125 mcg tablet Discontinued 125 ug PO DAILY December 29, 2021 5:32am June 14, 2023 3:02pm Start: 04-06-2019 End: 03-12-2023 take 1 tablet by mouth once daily Levothyroxine 100 mcg tablet Discontinued 100 ug PO DAILY August 10, 2021 9:26am September 12, 2021 9:55am take 1 tablet by christiano th once daily levothyroxine 100 mcg (0.1 mg) oral tablet ; 1 tab(s) orally once a day Quantity: 0 Refills: 0 Ordered: 17-Aug-2019 Margot Escamilla Generic Substitution Allowed Multivitamin (One Daily Multivitamin) tablet (7 sources) Start: 06-14-2023 take 1 tablet by mouth once daily Multivitamin (One Daily Multivitamin) tablet Active 1 {tbl} PO DAILY June 14, 2023 12:00am Start: 06-14-2023 take 1 tablet by christiano th once daily Multivitamin (One Daily Multivitamin) tablet Active 1 TABLET PO DAILY June 13, 2023 11:00pm Start: 06-14-2023 take 1 tablet by christiano th once daily Multivitamin (One Daily Multivitamin) tablet Active 1 TABLET PO DAILY June 14, 2023 12:00am omeprazole 10 mg delayed release oral capsule (20 sources) Proton Pump Inhibitor Start: 09-10-2023 End: 09-22-2025 take 1 capsule by mouth once daily before mealtime omeprazole (PriLOSEC) [address] capsule Indications: Gastroesophageal reflux disease without esophagitis Take 1 capsule (10 mg) by mouth once daily in the morning. Take before meals. Do not crush or chew. 90 capsule 1 09/22/2024 09/22/2025 Active Start: 03-01-2023 End: 06-14-2023 take 10 mg by mouth once daily Omeprazole 20 mg capsul e,delayed release(DR/EC) Discontinued 10 mg PO DAILY March 01, 2023 11:49am June 14, 2023 3:02pm Start: 03-01-2023 End: 06-14-2023 take 10 mg by mouth once daily Omeprazole Discontinued 10 MG PO DAILY March 01, 2023 10:49am June 14, 2023 2:02pm Start: 03-20-2022 take 1 capsule by mo uth once daily Omeprazole 10 MG Oral Capsule Delayed Release TAKE 1 CAPSULE Daily Quantity: 90 Refills: 3 Ordered: 20-Mar-2022 Janice Lloyd DO Start : 20-Mar-2022 Active Start: 03-07-2021 End: 09-10-2023 take 1 capsule by mouth once daily Omeprazole 20 mg capsule,delayed release(DR/EC) Discontinued 20 mg PO DAILY July 14, 2021 12:00am March 01, 2023 11:49am Start: 10-11-2020 take 1 tablet by christiano th once daily Omeprazole 20 MG Oral Tablet Delayed Release Disintegrating TAKE 1 BY MOUTH DAILY Quantity: 90 Refills: 1 Ordered: 07-Mar-2021 Janice Lloyd DO Start : 11-Oct-2020 Active omeprazole Quant ity: 0 Refills: 0 Ordered: 24-Dec-2021 Melany Jeffery Generic Substitution Allowed sertraline 100 mg oral tablet (6 sources) Serotonin Reuptake Inhibitor Start: 03-11-2025 take 1 tablet by mouth once daily Sertraline 100 mg tablet Active 100 mg PO daily March 11, 2025 12:00am Start: 05-20-2024 take 1 tablet by christiano th in the morning sertraline (Zoloft) 50 mg tablet Take 1 tablet (50 mg) by mouth early in the morning.. 05/20/2024 Active Completed/Discontinued Medications Medication Drug Class(es) Dates Sig (Normalized) Sig (Original) acetaminophen 325 mg / oxyCODONE hydrochloride 5 mg oral tablet (9 sources) Opioid Agonist Start: 12-31-2021 End: 01-13-2022 Oxycodone-Acetamin ophen (Percocet) 5-325 mg tablet Discontinued 1 {tbl} PO Q4H as needed for pain 22 04December 31, 2021 January 13, 2022 1:14pm aspirin 81 mg chewable tablet (20 sources) Platelet Aggregation Inhibitor, Nonsteroidal Anti-inflammatory Drug Start: 07-14-2021 End: 12-31-2021 take 1 tablet by mouth once daily Aspirin 81 mg tablet,chewable Discontinued 81 mg PO DAILY July 14, 2021 12:00am December 31, 2021 9:39am Start: 04-06-2019 End: 09-13-2020 take 1 tablet by mouth once daily Aspirin 81 MG tablet,chewable Discontinued 81 mg PO DAILY@0800 April 06, 2019 12:00am September 13, 2020 9:44am take 1 tablet by christiano th once daily Aspirin EC 81 MG Oral Tablet Delayed Release TAKE 1 TABLET DAILY. Quantity: 0 Refills: 0 Ordered: 24-Oct-2021 DO Active aspirin 81 mg or al tablet Quantity: 0 Refills: 0 Ordered: 24-Dec-2021 Melany Jeffery Status: Other Generic Substitution Allowed dicloxacillin 500 mg oral capsule (11 sources) Penicillin-class Antibacterial Start: 04-17-2022 End: 05-01-2022 take 1 capsule by mouth every six hours Dicloxacillin 500 mg capsule Discontinued 500 mg PO EVERY 6 HOURS 56 14 April 17, 2022 12:00am April 30, 2022 12:00am May 01, 2022 12:03am Start: 02-02-2022 End: 02-11-2022 take 1 capsule by mouth four times daily 1 hour(s) after mealtime dicloxacillin 500 mg oral capsule ; 1 cap(s) orally 4 times a day x 10 days Quantity: 40 Refills: 0 Ordered: 02-Feb-2022 Janice Orlando Start: 02-Feb-2022 End: 11-Feb-2022 Generic Substitution Allowed Comments: Finish all this medication unless otherwise directed by prescriber.Take medication on an empty stomach 1 hour before or 2 to 3 hours after a meal unless otherwise directed by your doctor. Start: 08-22-2019 End: 09-04-2019 take 1 capsule by mouth four times daily 1 hour(s) after mealtime dicloxacillin 500 mg oral capsule ; 1 cap(s) orally 4 times a day Quantity: 56 Refills: 0 Ordered: 22-Aug-2019 Sagar Gant Start: 22-Aug-2019 End: 04-Sep-2019 Status: Other Generic Substitution Allowed Comments: Finish all this medication unless otherwise directed by prescriber.Take medication on an empty stomach 1 hour before or 2 to 3 hours after a meal unless otherwise directed by your doctor. Comment on above: Finish all this medi cation unless otherwise directed by prescriber.Take medication on an empty stomach 1 hour before or 2 to 3 hours after a meal unless otherwise directed by your doctor. docusate sodium 100 mg oral capsule (16 sources) Start: 9 End: 0 take 1 capsule by mouth twice daily Docusate Sodium 100 MG capsule Discontinued 100 mg PO TWICE A DAY April 07, 2019 12:00am September 13, 2020 9:44am 1 po bid to prevent constipation. End: 10-24-2021 take 1 tablet by mouth twice daily Docusate Sodium 100 MG Oral Tablet Take 1 tablet twice daily Quantity: 0 Refills: 0 Ordered: 24-Oct-2021 DO End : 24-Oct-2021 Complete Drospirenone-Ethinyl Estradiol (10 sources) Progestin, Estrogen Start: 09-13-2020 End: 07-14-2021 take 1 tablet by mouth once daily Drospirenone-Ethinyl Estradiol Discontinued 1 TABLET PO DAILY September 13, 2020 10:08am July 14, 2021 1:59pm Start: 09-13-2020 End: 07-14-2021 Drospirenone-Ethinyl Estradi ol 3-0.02 mg tablet Discontinued 1 {tbl} PO DAILY September 13, 2020 1:00am July 14, 2021 1:59pm Start: 09-13-2020 End: 07-14-2021 take 1 tablet by mouth once daily Drospirenone-Ethinyl Estradiol Discontinued 1 TABLET PO DAILY September 13, 2020 12:00am July 14, 2021 12:59pm Start: 09-13-2020 End: 07-14-2021 take 1 tablet by mouth once daily Drospirenone-Ethinyl Estradiol Discontinued 1 TABLET PO DAILY September 13, 2020 1:00am July 14, 2021 1:59pm erythromycin 0.005 mg/mg ophthalmic ointment (2 sources) Macrolide, Macrolide Antimicrobial Start: 08-17-2019 End: 08-23-2019 erythromycin 0.5% ophthalmic ointment ; 1 application in each affected eye 4 times a day Quantity: 1 Refills: 0 Ordered: 17-Aug-2019 Hola Phillips Start: 17-Aug-2019 End: 23-Aug-2019 Status: Other Generic Substitution Allowed Comments: For the eye. Comment on above: For the eye. estradiol 2 mg oral tablet (1 source) Estrogen Start: 03-03-2021 Estradiol 2 MG Oral Tablet Quantity: 90 Refills: 0 Ordered: 03-Mar-2021 DO Start : 03-Mar-2021 Complete ferrous gluconate 324 mg oral tablet (16 sources) Start: 04-08-2019 End: 09-13-2020 Ferrous Gluconate 324 MG tablet Discontinued 325 mg PO TWICE DAILY WITH MEALS 60 April 08, 2019 12:00am September 13, 2020 9:45am Start: 04-08-2019 End: 09-13-2020 take 325 mg by mouth twice daily at mealtime Ferrous Gluconate Discontinued 325 MG PO TWICE DAILY WITH MEALS 60 April 07, 2019 11:00pm September 13, 2020 8:45am End: 10-24-2021 Ferrous Gluconate 325 MG TAB S twice daily Quantity: 0 Refills: 0 Ordered: 24-Oct-2021 DO End : 24-Oct-2021 Complete Ferrous Gluconat e 325 MG TABS twice daily Quantity: 0 Refills: 0 Ordered: 02-Oct-2019 DO Active Ferrous Gluconat e 325 MG TABS twice daily Refills: 0 Active Folic Acid / Vitamin B 12 / Vitamin B6 (6 sources) Vitamin B12 End: 10-24-2021 Folgard TABS 1 daily Quantity: 0 Refills: 0 Ordered: 24-Oct-2021 DO End : 24-Oct-2021 Complete Folgard TABS 1 d aily Quantity: 0 Refills: 0 Ordered: 02-Oct-2019 DO Active Folgard TABS 1 d aily Refills: 0 Active Folgard TABS 1 d aily Refills: 0 DO Active 12 hr guaiFENesin 600 mg extended release oral tablet (9 sources) Start: 12-29-2021 End: 01-13-2022 take 2 tablets by mouth twice daily, then take 1 tablet by mouth every twelve hours Guaifenesin (Mucinex) 600 mg Tablet Extended Release 12hr Discontinued 1200 mg PO TWICE A DAY December 29, 2021 12:00am January 13, 2022 1:14pm ibuprofen 800 mg oral tablet (20 sources) Nonsteroidal Anti-inflammatory Drug Start: 12-31-2021 End: 01-13-2022 take 1 tablet by mouth every eight hours as needed for pain Ibuprofen 800 mg tablet Discontinued 800 mg PO Q8H as needed for pain 22 04December 31, 2021 12:00am January 13, 2022 1:14pm Start: 04-07-2019 End: 09-13-2020 take 1 tablet by mouth every six hours as needed for pain Ibuprofen 600 MG tablet Discontinued 600 mg PO 4 TIMES DAILY NEEDED as needed for Mild-Mod Pain (1-5/10) April 07, 2019 6:52pm September 13, 2020 9:45am 1 po q 6 hr prn pain End: 10-24-2021 take 1 tablet by mouth four times daily at mealtime as needed Ibuprofen 600 MG Oral Tablet TAKE 1 TABLET 4 TIMES DAILY WITH MEALS NEEDED. Quantity: 0 Refills: 0 Ordered: 24-Oct-2021 DO End : 24-Oct-2021 Complete ketoconazole 20 mg/ml topical cream (2 sources) Azole Antifungal Start: 2019 Ketoconazole 2 % External Cream APPLY A THIN LAYER TO AFFECTED AREA(S) TWICE DAILY. Quantity: 1 Refills: 3 Oberhauser DO, Janice Start : 06-Oct-2019 Active 30 GM Tube medroxyPROGESTERone acetate 10 mg oral tablet (11 sources) Progestin Start: 03-01-2023 End: 03-10-2024 take 1 tablet by mouth once daily Medroxyprogesterone (Provera) 10 mg tablet Discontinued 10 mg PO daily March 01, 2023 12:00am June 14, 2023 3:01pm metFORMIN hydrochloride 500 mg oral tablet (10 sources) Biguanide Start: 09-13-2020 End: 07-14-2021 take 1 tablet by mouth twice daily Metformin 500 mg tablet Discontinued 500 mg PO TWICE A DAY 60 September 13, 2020 1:00am July 14, 2021 2:04pm nystatin 100 unt/mg topical powder (1 source) Polyene Antifungal Start: 05-12-2021 Nystatin [id number] UNIT/GM External Powder Quantity: 60 Refills: 0 Ordered: 12-May-2021 DO Start : 12-May-2021 Complete oxyCODONE hydrochloride 5 mg oral tablet (10 sources) Opioid Agonist Start: 04-07-2019 End: 04-20-2019 take 1 tablet by mouth every six hours as needed for pain Oxycodone 5 MG tablet Discontinued 5 mg PO EVERY 6 HOURS NEEDED as needed for Mod-Severe Pain (4-10/10) 12 04April 07, 2019 April 13, 2019 12:00am April 20, 2019 12:08am polyethylene glycol 3350 75904 mg powder for oral solution (16 sources) Osmotic Laxative Start: 04-07-2019 End: 10-24-2021 take 17 g by mouth once daily as needed for constipation Polyethylene Glycol 3350 17 GM packet Discontinued 17 g PO DAILY as needed for Constipation April 07, 2019 12:00am September 13, 2020 9:45am TABS (2 sources) TABS 1 daily Refills: 0 Active TABS 1 daily Refills: 0 DO Active TABS (7 sources) TABS 1 daily Quantity: 0 Refills: 0 Ordered: 24-Oct-2021 DO Active TABS 1 daily Quantity: 0 Refills: 0 Ordered: 02-Oct-2019 DO Active Vit,[id number]-Puthi (20 sources) Start: 12-29-2021 End: 03-01-2023 take 1 tablet by mouth once daily Vit,[id number]-Ibjbx Discontinued 1 TABLET PO DAILY@1200 December 29, 2021 4:32am March 01, 2023 10:49am Start: 12-29-2021 End: 03-01-2023 take 1 tablet by mouth once daily Vit,Qalj50-Gxme-Yjmzi Discontinued 1 TABLET PO DAILY@1200 December 29, 2021 5:32am March 01, 2023 11:49am Start: 12-29-2021 take 1 tablet by christiano th once daily Vit,Xfwb40-Hgot-Glimr Active 1 TABLET PO DAILY@1200 December 29, 2021 5:32am Start: 04-07-2019 End: 12-29-2021 take 1 tablet by mouth once daily Vit,Rsca90-Xfrv-Pbwfk Discontinued 1 TABLET PO DAILY@1200 April 07, 2019 6:52pm December 29, 2021 5:32am Start: 04-07-2019 take 1 tablet by christiano th once daily Vit,[id number]-Wqeq-Bkzxj Active 1 TABLET PO DAILY@1200 April 07, 2019 6:52pm Start: 04-07-2019 End: 12-29-2021 take 1 tablet by mouth once daily Vit,Bbnt58-Vljp-Gplbf Discontinued 1 TABLET PO DAILY@1199April 06, 2019 11:00pm December 29, 2021 4:32am Start: 04-07-2019 End: 12-29-2021 take 1 tablet by mouth once daily Vit,Ossv39-Yacj-Ukiar Discontinued 1 TABLET PO DAILY@1199April 07, 2019 12:00am December 29, 2021 5:32am Start: 04-06-2019 End: 09-13-2020 take 1 tablet by mouth once daily Vit,Rqni51-Arei-Gdwwq Discontinued 1 TABLET PO DAILY April 06, 2019 7:58pm September 13, 2020 9:46am Start: 04-06-2019 End: 09-13-2020 take 1 tablet by mouth once daily Vit,Jglb09-Uhoz-Pzlby Discontinued 1 TABLET PO DAILY April 05, 2019 11:00pm September 13, 2020 8:46am Start: 04-06-2019 End: 09-13-2020 take 1 tablet by mouth once daily Vit,Nzrf28-Deiz-Fdofg Discontinued 1 TABLET PO DAILY April 06, 2019 12:00am September 13, 2020 9:46am Vit,Iufq46-Wfos-Rqyek 1 TABLET tablet (9 sources) Start: 12-29-2021 End: 03-01-2023 take 1 tablet by mouth once daily Vit,Ishz89-Yeyq-Groad 1 TABLET tablet Discontinued 1 {tbl} PO DAILY@1200 December 29, 2021 5:32am March 01, 2023 11:49am Start: 04-07-2019 End: 12-29-2021 take 1 tablet by mouth once daily Vit,Rhxk55-Oafi-Qlcxr 1 TABLET tablet Discontinued 1 {tbl} PO DAILY@1200 April 07, 2019 12:00am December 29, 2021 5:32am Start: 04-06-2019 End: 09-13-2020 take 1 tablet by mouth once daily Vit,Eren20-Uxrj-Fbaai 1 TABLET tablet Discontinued 1 {tbl} PO DAILY April 06, 2019 12:00am September 13, 2020 9:46am progesterone 200 mg oral capsule (12 sources) Progesterone Start: 06-14-2023 End: 09-22-2024 take 1 capsule by mouth once daily in the evening Progesterone Micronized 200 mg capsule Discontinued 200 mg PO EVERY EVENING 09 04June 14, 2023 12:00am March 06, 2024 9:49am Start: 03-03-2021 Progesterone 5 0 MG/ML Intramuscular Oil Quantity: 60 Refills: 0 Ordered: 03-Mar-2021 DO Start : 03-Mar-2021 Complete sm 50 oxymetazoline monohdra te ointment (3 sources) Start: 03-06-2024 End: 03-11-2025 sm 50 oxymetazoline monohdra te ointment Discontinued TOPICAL TWICE A DAY March 06, 2024 12:00am March 11, 2025 1:25pm Vit D3-Folic Ymxv-T5-C5-B12 (7 sources) Start: 04-06-2019 End: 09-13-2020 Vit D3-Folic Nbtz-U9-N9-B12 Discontinued 1 EACH PO DAILY April 06, 2019 7:58pm September 13, 2020 9:46am Start: 04-06-2019 End: 09-13-2020 Vit D3-Folic Klna-D7-J1-B12 Discontinued 1 EACH PO DAILY April 05, 2019 11:00pm September 13, 2020 8:46am Start: 04-06-2019 End: 09-13-2020 Vit D3-Folic Iwkb-U2-G3-B12 Discontinued 1 EACH PO DAILY April 06, 2019 12:00am September 13, 2020 9:46am Vit D3-Folic Kmmz-J0-A8-B12 1 EACH tablet (3 sources) Start: 04-06-2019 End: 09-13-2020 take 1 tablet by mouth once daily Vit D3-Folic Meqe-Z1-D0-B12 1 EACH tablet Discontinued 1 NMA PO DAILY April 06, 2019 12:00am September 13, 2020 9:46am Problems Active Problems Problem Classification Problem Date Documented Da te Episodic/Chronic Anxiety disorders (17 sources) Anxiety; Translations: [Anxiety state, unspecified] Onset: 3 01-31-2023 Chronic Diabetes or abnormal glucose tolerance complicating ; childbirth; or the puerperium (11 sources) Abnormal glucose level; Translations: [Abnormal glucose complicating ] Episodic Comment on above: Normal 3hr GTT Esophageal disorders (20 sources) Gastroesophageal reflux disease; Translations: [Esophageal reflux] Onset: 3 01-31-2023 Chronic Immunizations and screening for infectious disease (5 sources) Contact with or exposure to other viral diseases; Translations: [Cough with exposure to COVID-19 virus] Episodic Malaise and fatigue (1 source) Fatigue; Translations: [Other malaise and fatigue] Episodic Menstrual disorders (4 sources) Amenorrhea, unspecified; Translations: [Irregular menstruation, unspecified] Onset: 7 Chronic Mycoses (9 sources) Dermatophytosis; Translations: [Dermatophytosis of unspecified site] Episodic Nonmalignant breast conditions (9 sources) Acute mastitis; Translations: [Inflammatory disease of breast] 02-02-2022 Episodic Normal and/or delivery (20 sources) Encounter for test, result positive; Translations: [] Onset: 8 Episodic Comment on above: dec afp, nl PGT, Neg ative carrier; nl anatomy. GBS neg Other complications of ; puerperium affecting management of mother (1 source) delivery - delivered; Translations: [Encounter for delivery without indication] Episodic Other complications of ; puerperium affecting management of mother (6 sources) Encounter for delivery without indication; Translations: [ delivery, without mention of indication, delivered, with or without mention of antepartum condition] Episodic Other complications of ; puerperium affecting management of mother (8 sources) Deliveries by ; Translations: [Encounter for delivery without indication] 12-30-2021 Episodic Comment on above: rltcs bs boy foster 39 SM Other complications of (10 sources) Maternal obesity complicating , childbirth and the puerperium, antepartum; Translations: [Obesity complicating , unspecified trimester] 12-30-2021 Chronic Comment on above: nl 1 tm gct. third t m testing Other complications of (16 sources) Obesity complicating , unspecified trimester; Translations: [Obesity complicating , childbirth, or the puerperium, unspecified as to episode of care or not applicable] Chronic Other complications of (10 sources) Urinary tract infection in ; Translations: [Unspecified infection of urinary tract in , unspecified trimester] 12-30-2021 Episodic Comment on above: repeat negative Other complications of (10 sources) Multigravida of advanced maternal age; Translations: [Supervision of elderly multigravida, unspecified trimester] 12-30-2021 Episodic Comment on above: nl PGT Other complications of (10 sources) High risk ; Translations: [Supervision of high risk , unspecified, unspecified trimester] 12-30-2021 Episodic Comment on above: PRR FRANKO: 3 boy [facility]: Marian Spouse: Roshan Other complications of (16 sources) Supervision of elderly multigravida, unspecified trimester; Translations: [Elderly multigravida, unspecified as to episode of care or not applicable] Episodic Other complications of (16 sources) Supervision of high risk , unspecified, unspecified trimester; Translations: [Supervision of unspecified high-risk ] Episodic Other complications of (16 sources) Unspecified infection of urinary tract in , unspecified trimester; Translations: [Infections of genitourinary tract in , antepartum condition or complication] Episodic Other connective tissue disease (1 source) Pain in right foot; Translations: [Pain in right foot] 03-12-2023 Episodic Other endocrine disorders (2 sources) Other specified disorders of pancreatic internal secretion; 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 discus sed options, plan OCP, recommend weight reduction consider GLP1 if covered by [employer] s/p lab eval. discus sed options, plan OCP, recommend weight reduction. yearly fasting labs ordered Other endocrine disorders (10 sources) Polycystic ovarian syndrome; Translations: [Polycystic ovaries] Onset: 3 03-01-2023 Chronic Other female genital disorders (1 source) Prolapse and hernia of ovary and fallopian tube, unspecified side; Translations: [PROLAPSE HERNIA OVARY TUBE UNS SIDE] Onset: 1 Episodic Other gastrointestinal disorders (7 sources) Dysphagia; Translations: [Dysphagia, unspecified] Episodic Other lower respiratory disease (2 sources) Cough; Translations: [Cough with exposure to COVID-19 virus] Episodic Other nutritional; endocrine; and metabolic disorders (10 sources) Body mass index 40+ - severely obese; Translations: [Body mass index (BMI) 45.0-49.9, adult] 06-14-2023 Chronic Comment on above: nutrition consult, C BT recommended. start with balanced nutritional plan and healthier choices. handouts given. s/p nutrition consul t, CBT recommended. start with balanced nutritional plan and healthier choices. handouts given. [employer]. stop wellbutrin and start contrave, samples given. fu in 1 month. Other nutritional; endocrine; and metabolic disorders (7 sources) Body mass index (BMI) 45.0-49.9, adult; Translations: [Body Mass Index 45.0-49.9, adult] Onset: 5 06-14-2023 Chronic Other nutritional; endocrine; and metabolic disorders (6 sources) Metabolic syndrome X; Translations: [Metabolic syndrome] 03-06-2024 Chronic Comment on above: recommend weight red uction consider GLP 1. recommend weight red uction start contrave Other nutritional; endocrine; and metabolic disorders (1 source) Metabolic syndrome; Translations: [Metabolic syndrome] Onset: 5 Chronic Other skin disorders (1 source) Eruption; Translations: [Rash and other nonspecific skin eruption] Episodic Other upper respiratory disease (2 sources) Nasal congestion; Translations: [Other disease of nasal cavity and sinuses] 12-24-2021 Episodic Other upper respiratory disease (1 source) Pain in throat 12-24-2021 Episodic Other upper respiratory infections (9 sources) Acute upper respiratory infection; Translations: [Acute upper respiratory infections of unspecified site] Onset: 4 12-24-2021 Episodic Residual codes; unclassified (10 sources) Conceived by in vitro fertilization; Translations: [Other specified health status] 12-30-2021 Episodic Comment on above: FET, PGT- echo normal, normal growth Residual codes; unclassified (16 sources) Other specified health status; Translations: [Other specified conditions influencing health status] Episodic Residual codes; unclassified (16 sources) History of uterine scar from previous surgery; Translations: [Other postprocedural status] Episodic Residual codes; unclassified (1 source) Acquired absence of other genital organ(s); Translations: [Acquired absence of organ, genital organs] 03-01-2023 Episodic Skin and subcutaneous tissue infections (1 source) Abscess; Translations: [Cutaneous abscess, unspecified] 01-31-2023 Episodic Thyroid disorders (20 sources) Subclinical iodine-deficiency hypothyroidism; Translations: [Hypothyroidism, unspecified] Onset: 5 Chronic Comment on above: TSH q trimester Synt hroid 100mcg synthroid, check lev els every trimester. 09/12-needs synthroid increased, recommend 125mcg daily, new script ordered, and repeat tsh and free t4 in 1 month Unclassified (3 sources) Encounter for test, result unknown; Translations: [Encounter for screening for malignant neoplasm of cervix] Onset: 8 Episodic Unclassified (1 source) ENCOUNTER FOR SCREENING FOR COVID-19; Translations: [ENCOUNTER FOR SCREENING FOR COVID-19] Onset: 1 Unclassified (2 sources) SORE THROAT, EARACHE 12-24-2021 Comment on above: SORE THROAT, EARACHE Unclassified (2 sources) 6 MONTH FUV 10-24-2021 Comment on above: 6 MONTH FUV Unclassified (2 sources) INFECTION OF LEFT BREAST 02-02-2022 Comment on above: INFECTION OF LEFT BR EAST Unclassified (1 source) Acute mastitis of left breast 02-02-2022 Past or Other Problems Problem Classification Problem Date Documented Da te Episodic/Chronic Other complications of (2 sources) Missed ; Translations: [Missed ] Onset: 11-05-2017 Episodic Other skin disorders (14 sources) Sebaceous cyst of skin; Translations: [Sebaceous cyst] Onset: 01-31-2023 01-31-2023 Episodic Thyroid disorders (18 sources) Disorder of thyroid gland; Translations: [Unspecified disorder of thyroid] Onset: 09-10-2023 09-10-2023 Episodic Unclassified (6 sources) Onset: 03-12-2023 03-12-2023 Results Test Name Value Interpretation Reference Range Facility PAP IG HPV APTIMA 16/18,45on 03-17-2025 ADEQ Comment Normal . [facility] Comment on above: Order Comment: Speci men Comment: [id number] Specimen Comment: No. of containers..01 ThinPrep Vial Result Comment: Sati sfactory for evaluation. No endocervical component is identified. Performed By: #### L 7400.0280 #### [facility] [address] [place], [place], [id number] COMM . Normal . [facility] Comment on above: Order Comment: Speci men Comment: [id number] Specimen Comment: No. of containers..01 ThinPrep Vial Performed By: #### L 7400.0280 #### [facility] [address] [place], [address] COMMENT Comment Normal . [facility] Comment on above: Order Comment: Speci men Comment: [id number] Specimen Comment: No. of containers..01 ThinPrep Vial Result Comment: This liquid based ThinPrep(R) pap test was screened with the use of an image guided system. Performed By: #### L 7400.0280 #### [facility] [address] [place], [address] DIAG Comment Normal . [facility] Comment on above: Order Comment: Speci men Comment: [id number] Specimen Comment: No. of containers..01 ThinPrep Vial Result Comment: NEGA TIVE FOR INTRAEPITHELIAL LESION OR MALIGNANCY. THIS SPECIMEN WAS RESCREENED PART OF OUR MANAGER ROOM PROGRAM. Performed By: #### L 7400.0280 #### [facility] [address] [place], [address] HPV APTIMA, HR Negative Normal Negative [facility] Comment on above: Order Comment: Speci men Comment: [id number] Specimen Comment: No. of containers..01 ThinPrep Vial Result Comment: This nucleic acid amplification test detects fourteen high- risk HPV types (16,18,31,33,35,39,45,51,52,56,58,59,66,68) without differentiation. Performed By: #### L 7400.0280 #### [facility] [address] [place], [address] HPV Jaz Rfx Comment Normal . [facility] Comment on above: Order Comment: Speci men Comment: [id number] Specimen Comment: No. of containers..01 ThinPrep Vial Result Comment: Crit eria not met, HPV Genotype not performed. Performed at: - [address] [id number] Tub Rider: Mishel Gil MD, Phone: [phone] Performed at: = - [facility] [id number] Tub Rider: Mishel Gil MD, Phone: [phone] Performed By: #### L 7400.0280 #### [facility] [address] [place], [address] PAPSMR Comment Normal . [facility] Comment on above: Order Comment: Spec men Comment: [id number] Specimen Comment: No. of containers..01 ThinPrep Vial Result Comment: The Pap smear is a screening test designed to aid in the detection of premalignant and malignant conditions of the uterine cervix. It is not a diagnostic procedure and should not be used as the sole means of detecting cervical cancer. Both false-positive and false-negative reports do occur. Performed By: #### L 7400.0280 #### [facility] [address] [place], [address] PERFORM Comment Normal . [facility] Comment on above: Order Comment: Speci men Comment: [id number] Specimen Comment: No. of containers..01 ThinPrep Vial Result Comment: Carmita Mcfarland, Supervisory Marble Machine Operator (ASCP) Performed By: #### L 7400.0280 #### [facility] [address] [place], [place], [id number] QC REV Comment Normal . [facility] Comment on above: Order Comment: Speci men Comment: [id number] Specimen Comment: No. of containers..01 ThinPrep Vial Result Comment: Neville Patino, Marble Machine Operator (ASCP) Performed By: #### L 7400.0280 #### [facility] [address] [place], [place], [id number] Absolute lymphocyte countOrd ered By: Gabrielle Stone on 03-12-2025 Lymphocytes Auto (Unsp spec) [#/Vol] 2.33 10*3/uL 0.83-4.51 [facility] Absolute neutrophil countOrd ered By: Gabrielle Stone on 03-12-2025 Neutrophils (Bld) [#/Vol] 6.0 10*3/uL 2.0-7.7 [facility] Anion gap in Serum or Plasma Ordered By: Gabrielle Stone on 03-12-2025 Anion gap [Moles/Vol] 12 mmol/L 5-[address] [facility] Automated lymphocyte count a s percentage of total leukocytesOrdered By: Gabrielle Stone on 03-12-2025 Lymphocytes/100 WBC Auto (Unsp spec) 25.8 % - [facility] BUN/creatinine ratioOrdered By: Gabrielle Stone on 03-12-2025 Urea nitrogen/Creatinine [Mass ratio] 19.8 mg/mg 10-20 [facility] Basophil percentageOrdered B y: Gabrielle Stone on 03-12-2025 Basophils/100 WBC (Bld) 0.2 % 0- [facility] Bilirubin, totalOrdered By: Gabrielle Stone on 03-12-2025 Bilirubin [Mass/Vol] 0.42 mg/dL 0.00-1.30 [facility] CBC W/Diff, Automatedon 06-1 9-2025 Absolute Lymph 2.33 X10 3/uL Normal 0.83-4.51 [facility] Comment on above: Performed By: #### L 500.4100, L501.9985, L506.1001, L501.9520, L500.4050, L100.0100 #### [facility] [address] [place], [address] Absolute Neut 6.0 X10 3/uL Normal 2.0-7.7 [facility] Comment on above: Performed By: #### L 500.4100, L501.9985, L506.1001, L501.9520, L500.4050, L100.0100 #### [facility] [address] [place], [address] Basophils/100 WBC (Bld) 0.2 % Normal 0-1 [facility] Comment on above: Performed By: #### L 500.4100, L501.9985, L506.1001, L501.9520, L500.4050, L100.0100 #### [facility] [address] [place], [address] Eosinophils/100 WBC (Bld) 1.6 % Normal 0-5 [facility] Comment on above: Performed By: #### L 500.4100, L501.9985, L506.1001, L501.9520, L500.4050, L100.0100 #### [facility] [address] [place], [address] Erythrocyte distribution width (RBC) [Ratio] 18.2 % High 11.6-14.6 [facility] Comment on above: Performed By: #### L 500.4100, L501.9985, L506.1001, L501.9520, L500.4050, L100.0100 #### [facility] [address] [place], [address] Hematocrit (Bld) [Volume fraction] 32.9 % Low 37-47 [facility] Comment on above: Performed By: #### L 500.4100, L501.9985, L506.1001, L501.9520, L500.4050, L100.0100 #### [facility] [address] [place], [address] Hemoglobin (Bld) [Mass/Vol] 9.8 g/dL Low 12.0-15.0 [facility] Comment on above: Performed By: #### L 500.4100, L501.9985, L506.1001, L501.9520, L500.4050, L100.0100 #### [facility] [address] [place], [address] IG% 0.300 Normal 0.0-0.9 [facility] Comment on above: Result Comment: IG% - Immature Granulocytes (promyelocytes, myelocytes and metamyelocytes) > 1% indicates that a LEFT SHIFT is Present. Performed By: #### L 500.4100, L501.9985, L506.1001, L501.9520, L500.4050, L100.0100 #### [facility] [address] [facility] [place], [address] Lymphocytes/100 WBC (Bld) 25.8 % Normal 19-41 [facility] Comment on above: Performed By: #### L 500.4100, L501.9985, L506.1001, L501.9520, L500.4050, L100.0100 #### [facility] [address] [place], [address] MCH (RBC) [Entitic mass] 21.8 pg Low 27.0-32.0 [facility] Comment on above: Performed By: #### L 500.4100, L501.9985, L506.1001, L501.9520, L500.4050, L100.0100 #### [facility] [address] [place], [address] MCHC (RBC) [Mass/Vol] 29.8 g/dL Low 32-[address] [facility] Comment on above: Performed By: #### L 500.4100, L501.9985, L506.1001, L501.9520, L500.4050, L100.0100 #### [facility] [address] [place], [address] MCV (RBC) [Entitic vol] 73.1 fL Low 81-99 [facility] Comment on above: Performed By: #### L 500.4100, L501.9985, L506.1001, L501.9520, L500.4050, L100.0100 #### [facility] [address] [place], [address] Monocytes/100 WBC (Bld) 5.8 % Normal 0-10 [facility] Comment on above: Performed By: #### L 500.4100, L501.9985, L506.1001, L501.9520, L500.4050, L100.0100 #### [facility] [address] [place], [address] Neutrophils/100 WBC (Bld) 66.3 % Normal 47-70 [facility] Comment on above: Performed By: #### L 500.4100, L501.9985, L506.1001, L501.9520, L500.4050, L100.0100 #### [facility] [address] [place], [address] Nucleated RBC (Bld) [#/Vol] 0 10*3/uL Normal 0-5 [facility] Comment on above: Performed By: #### L 500.4100, L501.9985, L506.1001, L501.9520, L500.4050, L100.0100 #### [facility] [address] [place], [address] Platelet mean volume (Bld) [Entitic vol] 9.5 fL Normal 6.2-12.0 [facility] Comment on above: Performed By: #### L 500.4100, L501.9985, L506.1001, L501.9520, L500.4050, L100.0100 #### [facility] [address] [place], [address] Platelets (Bld) [#/Vol] 419 10*3/uL Normal 150-450 [facility] Comment on above: Performed By: #### L 500.4100, L501.9985, L506.1001, L501.9520, L500.4050, L100.0100 #### [facility] [address] [place], [address] RBC (Bld) [#/Vol] 4.50 10*6/uL Normal 4.2-5.4 [facility] Comment on above: Performed By: #### L 500.4100, L501.9985, L506.1001, L501.9520, L500.4050, L100.0100 #### [facility] [address] [place], [address] RDW SD 47.4 fl High 35.1-43.9 [facility] Comment on above: Performed By: #### L 500.4100, L501.9985, L506.1001, L501.9520, L500.4050, L100.0100 #### [facility] [address] [place], [address] WBC (Bld) [#/Vol] 9.0 10*3/uL Normal 4.4-11.0 [facility] Comment on above: Performed By: #### L 500.4100, L501.9985, L506.1001, L501.9520, L500.4050, L100.0100 #### [facility] [address] [place], [address] Calculated very low density lipoprotein (VLDL) cholesterol measurementOrdered By: Gabrielle Stone on 03-12-2025 Calculated very low density lipoprotein (VLDL) cholesterol measurement 21 mg/dL 5-40 [facility] Carbon dioxide, total [Moles /volume] in Central venous bloodOrdered By: Gabrielle Stone on 03-12-2025 CO2 [Moles/Vol] 22.3 mmol/L 21.0-32.0 [facility] Chloride assayOrdered By: Chas Stone on 03-12-2025 Chloride [Moles/Vol] 104 mmol/L 98-108 [facility] Comprehensive Metabolic Prof ilon 03-12-2025 Albumin [Mass/Vol] 4.0 g/dL Normal 3.5-5.0 [facility] Comment on above: Performed By: #### L 500.4100, L501.9985, L506.1001, L501.9520, L500.4050, L100.0100 #### [facility] [address] [place], [address] Albumin/Globulin [Mass ratio] 1.4 {ratio} Normal 0.9-2.4 [facility] Comment on above: Performed By: #### L 500.4100, L501.9985, L506.1001, L501.9520, L500.4050, L100.0100 #### [facility] [address] [place], [address] ALK PHOS 74 U/L Normal 35-104 [facility] Comment on above: Performed By: #### L 500.4100, L501.9985, L506.1001, L501.9520, L500.4050, L100.0100 #### [facility] [address] [place], [address] ALT [Catalytic activity/Vol] 15 U/L Normal <=34 [facility] Comment on above: Performed By: #### L 500.4100, L501.9985, L506.1001, L501.9520, L500.4050, L100.0100 #### [facility] [address] [place], [address] AST [Catalytic activity/Vol] 21 U/L Normal <=31 [facility] Comment on above: Performed By: #### L 500.4100, L501.9985, L506.1001, L501.9520, L500.4050, L100.0100 #### [facility] [address] [place], [address] Bilirubin [Mass/Vol] 0.42 mg/dL Normal 0.00-1.30 [facility] Comment on above: Performed By: #### L 500.4100, L501.9985, L506.1001, L501.9520, L500.4050, L100.0100 #### [facility] [address] [place], [address] BUN/CRE 19.8 RATIO Normal 10-20 [facility] Comment on above: Performed By: #### L 500.4100, L501.9985, L506.1001, L501.9520, L500.4050, L100.0100 #### [facility] [address] [place], [address] Calcium [Mass/Vol] 9.0 mg/dL Normal 7.6-11.0 [facility] Comment on above: Performed By: #### L 500.4100, L501.9985, L506.1001, L501.9520, L500.4050, L100.0100 #### [facility] [address] [place], [address] Chloride [Moles/Vol] 104 mmol/L Normal 98-108 [facility] Comment on above: Performed By: #### L 500.4100, L501.9985, L506.1001, L501.9520, L500.4050, L100.0100 #### [facility] [address] [place], [address] CO2 [Moles/Vol] 22.3 mmol/L Normal 21.0-32.0 [facility] Comment on above: Performed By: #### L 500.4100, L501.9985, L506.1001, L501.9520, L500.4050, L100.0100 #### [facility] [address] [place], [address] Creatinine [Mass/Vol] 0.68 mg/dL Low 0.70-1.[address] [facility] Comment on above: Performed By: #### L 500.4100, L501.9985, L506.1001, L501.9520, L500.4050, L100.0100 #### [facility] [address] [place], [address] GAP 12 Normal 5-15 [facility] Comment on above: Performed By: #### L 500.4100, L501.9985, L506.1001, L501.9520, L500.4050, L100.0100 #### [facility] [address] [place], [address] GFR/1.73 sq M.predicted among non-blacks MDRD (S/P/Bld) [Vol rate/Area] 114 mL/min/{1.73_m2} Normal >60 [facility] Comment on above: Result Comment: mL/m in/1.73m2 CKD-EPI Creatinine Equation (2020) Performed By: #### L 500.4100, L501.9985, L506.1001, L501.9520, L500.4050, L100.0100 #### [facility] [address] [place], [address] Globulin (S) [Mass/Vol] 2.8 g/dL Normal 2.2-4.2 [facility] Comment on above: Performed By: #### L 500.4100, L501.9985, L506.1001, L501.9520, L500.4050, L100.0100 #### [facility] Laboratory [address] [place], [address] Glucose [Mass/Vol] 92 mg/dL Normal 70-99 [facility] Comment on above: Performed By: #### L 500.4100, L501.9985, L506.1001, L501.9520, L500.4050, L100.0100 #### [facility] [address] [place], [address] Potassium [Moles/Vol] 4.2 mmol/L Normal 3.3-5.[address] [facility] Comment on above: Performed By: #### L 500.4100, L501.9985, L506.1001, L501.9520, L500.4050, L100.0100 #### [facility] [address] [place], [address] Sodium [Moles/Vol] 138 mmol/L Normal 133-145 [facility] Comment on above: Performed By: #### L 500.4100, L501.9985, L506.1001, L501.9520, L500.4050, L100.0100 #### [facility] [address] [place], [address] T PROT 6.7 g/dL Normal 5.9-8.4 [facility] Comment on above: Performed By: #### L 500.4100, L501.9985, L506.1001, L501.9520, L500.4050, L100.0100 #### [facility] [address] [place], [address] Urea nitrogen [Mass/Vol] 13 mg/dL Normal 4- [facility] Comment on above: Performed By: #### L 500.4100, L501.9985, L506.1001, L501.9520, L500.4050, L100.0100 #### [facility] [address] [place], [address] Eosinophil percentageOrdered By: Gabrielle Stone on 03-12-2025 Eosinophils/100 WBC (Bld) 1.6 % 0-5 [facility] Erythrocyte distribution wid th ratioOrdered By: Gabrielle Stone on 03-12-2025 Erythrocyte distribution width (RBC) [Ratio] 18.2 % High 11.6-14.6 [facility] Erythrocyte distribution wid th standard deviationOrdered By: Gabrielle Stone on 03-12-2025 Erythrocyte distribution width (RBC) [Ratio] 47.4 fl High 35.1-43.9 [facility] Glomerular filtration rate ( GFR) estimation/1.73 sq m using serum, plasma, or whole bOrdered By: Gabrielle Stone on 03-12-2025 GFR/1.73 sq M.predicted among non-blacks MDRD (S/P/Bld) [Vol rate/Area] 114 mL/min/{1.73_m2} >60 [facility] Comment on above: mL/min/1.73m2 CKD-EP I Creatinine Equation (2020) Hematocrit Auto (Bld) [Volum e fraction]Ordered By: Gabrielle Stone on 03-12-2025 Hematocrit (Bld) [Volume fraction] 32.9 % Low 37-47 [facility] Hemoglobin A1con 03-12-2025 HbA1c (Bld) [Mass fraction] 5.7 % Normal <=5.6 [facility] Comment on above: Result Comment: Norm al < 5.7 % Prediabetic 5.7 - 6.4 % Diabetic >or= 6.5 % Please note range changes. Performed By: #### L 500.4100, L501.9985, L506.1001, L501.9520, L500.4050, L100.0100 #### [facility] [address] [place], [address] Hemoglobin A1c percentageOrd ered By: Gabrielle Stone on 03-12-2025 HbA1c (Bld) [Mass fraction] 5.7 % <5.7 [facility] Comment on above: Normal < 5.7 % Predi abetic 5.7 - 6.4 % Diabetic >or= 6.5 % Please note range changes. Hemoglobin measurementOrdere d By: Gabrielle Stone on 03-12-2025 Hemoglobin (Bld) [Mass/Vol] 9.8 g/dL Low 12.0-15.0 [facility] Immature granulocytes/100 WB C Auto (Bld)Ordered By: Gabrielle Stone on 03-12-2025 Immature granulocytes/100 WBC (Bld) 0.300 % 0.0-0.9 [facility] Comment on above: IG% - Immature Granu locytes (promyelocytes, myelocytes and metamyelocytes) > 1% indicates that a LEFT SHIFT is Present. LDL calc ser/plasOrdered By: Gabrielle Stone on 03-12-2025 Cholesterol in LDL [Mass/Vol] 115 mg/dL [facility] Comment on above: Ylvtwbrypn=004-401 m g/dL & Higher Nepc=139 mg/dL or greater Laboratory - Chemistry and C hemistry - challengeOrdered By: Gabrielle Stone on 03-12-2025 AST [Catalytic activity/Vol] 21 U/L <32 [facility] Lipid Profileon 03-12-2025 CHOL:HDL 2.87 Normal [facility] Comment on above: Performed By: #### L 500.4100, L501.9985, L506.1001, L501.9520, L500.4050, L100.0100 #### [facility] [address] [place], [address] Cholesterol [Mass/Vol] 208 mg/dL High <=200 [facility] Comment on above: Result Comment: Chol esterol level, Desirable <200 mg/dL Borderline high cholesterol 200-239 mg/dL High cholesterol >=240 mg/dL Recommendations of the NCEP Adult Treatment Panel for the following risk-cutoff thresholds for the [place] population. Performed By: #### L 500.4100, L501.9985, L506.1001, L501.9520, L500.4050, L100.0100 #### [facility] [address] [place], [address] Cholesterol in HDL [Mass/Vol] 73 mg/dL Normal [facility] Comment on above: Result Comment: Mary onal Cholesterol Education Program (NCEP) guidelines: <40 mg/dL: Low HDL-cholesterol (major risk factor for CHD) >= 60 mg/dL: High HDL-cholesterol (negative risk factor for CHD) HDL-cholesterol is affected by a number of factors, e.g. smoking, exercise, hormones, sex and age. Performed By: #### L 500.4100, L501.9985, L506.1001, L501.9520, L500.4050, L100.0100 #### [facility] [address] [place], [address] Cholesterol in LDL [Mass/Vol] 115 mg/dL Normal [facility] Comment on above: Result Comment: Bord nosffs=002-249 mg/dL Higher Tsoo=831 mg/dL or greater Performed By: #### L 500.4100, L501.9985, L506.1001, L501.9520, L500.4050, L100.0100 #### [facility] [address] [place], [address] Cholesterol in VLDL [Mass/Vol] 21 mg/dL Normal 5-40 [facility] Comment on above: Performed By: #### L 500.4100, L501.9985, L506.1001, L501.9520, L500.4050, L100.0100 #### [facility] [address] [place], [address] Triglyceride [Mass/Vol] 103 mg/dL Normal [facility] Comment on above: Result Comment: The drugs N-Acetylcysteine and Metamizole may falsely depress this assay. Normal range: <150 mg/dL Borderline High: 150-199 mg/dL High: 200-499 mg/dL Very High: >500 mg/dL Performed By: #### L 500.4100, L501.9985, L506.1001, L501.9520, L500.4050, L100.0100 #### [facility] [address] [place], [place], [id number] MCV (mean corpuscular volume ) determinationOrdered By: Gabrielle Stone on 03-12-2025 MCV (RBC) [Entitic vol] 73.1 fL Low 81-99 [facility] Mean corpuscular hemoglobin (MCH) determinationOrdered By: Gabrielle Stone on 03-12-2025 MCH (RBC) [Entitic mass] 21.8 pg Low 27.0-32.0 [facility] Mean corpuscular hemoglobin concentration (MCHC) determinationOrdered By: Gabrielle Stone on 03-12-2025 MCHC (RBC) [Mass/Vol] 29.8 g/dL Low 32-[address] [facility] Mean platelet volume determi nationOrdered By: Gabrielle Stone on 03-12-2025 Platelet mean volume (Bld) [Entitic vol] 9.5 fL 6.2-12.0 [facility] Monocyte percentageOrdered B y: Gabrielle Stone on 03-12-2025 Monocytes/100 WBC (Bld) 5.8 % 0-10 [facility] Neutrophil percentageOrdered By: Gabrielle Stone on 03-12-2025 Neutrophils/100 WBC (Bld) 66.3 % 47-70 [facility] Nucleated red blood cell per centageOrdered By: Gabrielle Stone on 03-12-2025 Nucleated RBC/100 WBC (Bld) [Ratio] 0 % 0-5 [facility] Platelet countOrdered By: Chas Stone on 03-12-2025 Platelets (Bld) [#/Vol] 419 10*3/uL 150-450 [facility] Potassium measurement (mass/ volume)Ordered By: Gabrielle Stone on 03-12-2025 Potassium (Unsp spec) [Mass/Vol] 4.2 mmol/L 3.3-5.1 [facility] RBC Auto (Bld) [#/Vol]Ordere d By: Gabrielle Stone on 03-12-2025 RBC (Bld) [#/Vol] 4.50 10*6/uL 4.2-5.4 [facility] Screening total cholesterol/ high density lipoprotein (HDL) cholesterol ratioOrdered By: Gabrielle Stone on 03-12-2025 Cholesterol.total/Cho lesterol in HDL [Mass ratio] 2.87 {ratio} [facility] Serum creatinine measurement (mass/volume)Ordered By: Gabrielle Stone on 03-12-2025 Creatinine [Mass/Vol] 0.68 mg/dL Low 0.70-1.[address] [facility] Serum globulin measurementOr dered By: Gabrielle Stone on 03-12-2025 Globulin (S) [Mass/Vol] 2.8 g/dL 2.2-4.2 [facility] Serum glucose measurement (m ass/volume)Ordered By: Gabrielle Stone on 03-12-2025 Glucose [Mass/Vol] 92 mg/dL 70-99 [facility] Serum or plasma alanine karimi otransferase (ALT) measurementOrdered By: Gabrielle Stone on 03-12-2025 ALT [Catalytic activity/Vol] 15 U/L <35 [facility] Serum or plasma albumin christi urement (mass/volume)Ordered By: Gabrielle Stone on 03-12-2025 Albumin [Mass/Vol] 4.0 g/dL 3.5-5.0 [facility] Serum or plasma albumin/glob ulin mass ratioOrdered By: Gabrielle Stone on 03-12-2025 Albumin/Globulin [Mass ratio] 1.4 {ratio} 0.9-2.4 [facility] Serum or plasma alkaline elizabeth sphatase measurementOrdered By: Gabrielle Stone on 03-12-2025 ALP [Catalytic activity/Vol] 74 U/L 35-104 [facility] Serum or plasma calcium christi urement (mass/volume)Ordered By: Gabrielle Stone on 03-12-2025 Calcium [Mass/Vol] 9.0 mg/dL 7.6-11.0 [facility] Serum or plasma cholesterol in HDL measurement (mass/volume)Ordered By: Gabrielle Stone on 03-12-2025 Cholesterol in HDL [Mass/Vol] 73 mg/dL >40 [facility] Comment on above: National Cholesterol Education Program (NCEP) guidelines:<40 mg/dL: Low HDL-cholesterol (major risk factor for CHD)>= 60 mg/dL: High HDL-cholesterol (negative risk factor for CHD)HDL-cholesterol is affected by a number of factors, e.g. smoking, exercise, hormones, sex and age. Serum or plasma cholesterol measurement (mass/volume)Ordered By: Gabrielle Stone on 03-12-2025 Cholesterol [Mass/Vol] 208 mg/dL High <201 [facility] Comment on above: Cholesterol level, D esirable <200 mg/dLBorderline high cholesterol 200-239 mg/dLHigh cholesterol >=240 mg/dLRecommendations of the NCEP Adult Treatment Panel for the following risk-cutoff thresholds for the [place] population. Serum or plasma urea nitroge n measurement (mass/volume)Ordered By: Gabrielle Stone on 03-12-2025 Urea nitrogen [Mass/Vol] 13 mg/dL - [facility] Sodium levelOrdered By: Lars Stone on 03-12-2025 Sodium [Moles/Vol] 138 mmol/L 133-145 [facility] TSH DL <= 0.005 mIU/L QnOrde red By: Gabrielle Stone on 03-12-2025 TSH Qn 4.830 uIU/mL High 0.300-4.20 0 [facility] Thyroid Stim Hormone (TSH)on 03-12-2025 TSH 4.830 uIU/mL High 0.300-4.20 0 [facility] Comment on above: Performed By: #### L 500.4100, L501.9985, L506.1001, L501.9520, L500.4050, L100.0100 #### [facility] [address] [place], [address] Total proteinOrdered By: Chris Stone on 03-12-2025 Protein [Mass/Vol] 6.7 g/dL 5.9-8.4 [facility] Triglycerides measurementOrd ered By: Gabrielle Stone on 03-12-2025 Triglyceride [Mass/Vol] 103 mg/dL <199 [facility] Comment on above: The drugs N-Acetylcy steine and Metamizole may falsely depress this assay. Normal range: <150 mg/dLBorderline High: 150-199 mg/dLHigh: 200-499 mg/dLVery High: >500 mg/dL Vitamin D,25 Hydroxyon 03-12 Vitamin D 25-OH 34.8 ng/mL Normal 30-100 [facility] Comment on above: Result Comment: Idania min D Status Deficiency: <20 ng/mL (50nmol/L) Insufficiency: 20-30 ng/mL (50-75 nmol/L) Sufficiency: 30-100 ng/mL (75-250 nmol/L) Toxicity: >100 ng/mL (>250 nmol/L) Performed By: #### L 500.4100, L501.9985, L506.1001, L501.9520, L500.4050, L100.0100 #### [facility] [address] [place], [address] White blood cell (WBC) count Ordered By: Gabrielle Stone on 03-12-2025 WBC (Bld) [#/Vol] 9.0 10*3/uL 4.4-11.0 [facility] Cervical or vaginal specimen microscopic examination by liquid based cytology (reportOrdered By: Gabrielle Stone on 03-11-2025 Cytology report Cyto stain.thin prep Doc (Cvx/Vag) Comment . [facility] Comment on above: Criteria not met, HP V Genotype not performed.Performed at: - [facility] [id number] Director: Mishel Gil MD, Phone: [phone] at: = - [facility] [id number] Director: Mishel Gil MD, Phone: [phone] Cervical or vagninal specime n microscopic examination by cytology stain (reported asOrdered By: Gabrielle Stone on 03-11-2025 Cytology report Cyto stain Doc (Cvx/Vag) Comment . [facility] Comment on above: The Pap smear is a s creening test designed to aid in thedetection of premalignant and malignant conditions of theuterine cervix. It is not a diagnostic procedure andshould not be used as the sole means of detecting cervicalcancer. Both false-positive and false-negative reports dooccur. Detection in cervical specim en of any of human papilloma virus (HPV) 16, 18, 31, 33,Ordered By: Gabrielle Stone on 03-11-2025 HPV 16+18+31+33+35+39+45+ 51+52+56+58+59+66+68 DNA Probe+sig amp Ql (Cvx) Negative Negative [facility] Comment on above: This nucleic acid am plification test detects fourteen high- risk HPV types (16,18,31,33,35,39,45,51,52,56,58,59,66,68)without differentiation. Laboratory - CytologyOrdered By: Gabrielle Stone on 03-11-2025 Marble Machine Operator Cyto stain Nom (Cvx/Vag) [ID] Comment . [facility] Comment on above: Mandy Marx pervisory Marble Machine Operator (ASCP) Laboratory - Miscellaneous t estsOrdered By: Gabrielle Stone on 03-11-2025 Service comment (Unsp spec) [Interp] . . [facility] No Panel InformationOrdered By: Gabrielle Stone on 03-11-2025 Pap Smear QC Review Comment . [facility] Comment on above: Hina Vizcarral ogagueda (ASCP) Pap Smear Specimen Adequacy Comment . [facility] Comment on above: Satisfactory for alex luation. No endocervical component is identified. Neighborhood Conservation Officer Office Visit Reporton 03-11-2025 Neighborhood Conservation Officer Office Visit Report [facility] [address], [address] [place] [address] OFFICE VISIT Date of Service: 03/11/25 MR#: [id number] Acct: [id number] Name: CASSANDRA MENDOZA Rep #: [id number] : 1985 Provider: Dr. 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 Social Work Required: No Is patient in pain?: No Allergies Sulfa (Sulfonamide Antibiotics) Allergy (Verified 03/11/25 13:26) Hives Medications ???Medication ???Instructions ???Recorded ???Confirmed ???Type multivitamin (One Daily 1 tab PO DAILY 06/14/23 03/11/25 H istory Multivitamin tablet) omeprazole 20 mg capsule,delayed 20 mg PO DAILY indigestion 3 03/11/25 History release doxycycline monohydrate 50 mg 50 mg PO DAILY 03/06/24 03/06/24 H istory capsule bupropion HCl 150 mg 24 hr tablet, 150 mg PO QAM 03/11/25 03/11/25 History extended release (Wellbutrin XL) desogestrel 0.15 mg-ethinyl 1 tab PO QDAY 03/11/25 03/11/25 Hi story estradiol 0.03 mg tablet (Isibloom) levothyroxine 125 mcg tablet 100 mcg PO DAILY hypothyriod 03/1103/11/25 History naltrexone 8 mg-bupropion 90 mg 2 tab PO BID 12 weeks #336 tabs 03/11/25 Rx tablet,extended release (Contrave) sertraline 100 mg tablet 100 mg PO QDAY 03/11/25 03/11/25 H istory Is last menstrual period known: Yes Last Menstrual Period: 02/13/25 Post menopausal: No Patient : No : No Control Method: no birthcontol [facility] Medical History Hyperthyroidism PCOS (polycystic ovarian syndrome) Surgical History H/O dilation and curettage H/O cervical polypectomy S/P tonsillectomy Previous section Family History Father Hypertension Brother Thyroid disorder Grandmother Lymphoma Social History number of children: 2 current occupational status: employed 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 Date Name GA/Weeks Outcome Route Bth Weight Gen Labor Lgth Anesthesia Del Locatn Provider FOB 04/07/19 Marian 41 8 lb 1 oz Female [facility] Dr. Barroso 12/29/21 Foster 39 live - full term 7lbs 8oz Male spinal [facility] Dr. Abhinav Islas Delivery Date: 12/29/21 Last Updated by: Delilah EPSTEIN BS, in vitro HPI Encounter for routine gynecological examination Details: CASSANDRA MENDOZA is a 39 year old who presents for annual exam. working on mental health and is much better, now wanitng to improve physical health. has been doing well on wellbutrin. met with chief of staff last year and was successful for a while but unable to maintain Last PAP: 09/13/2020 - normal History of abnormal PAP: Last mammogram: not due History of abnormal mammogram: Colon cancer screening: not due Other preventative health care screenings: PCP Prema, will be finding a new PCP soon Female Reproductive History Last Menstrual Period: 02/13/25 Cycle Length: >35 Bleeding Duration: 5 Questions: metorrhagia: Yes (provera PRN), sexually active: Yes, dyspareunia: No and PCB: No Menopausal Symptoms: No hot flashes, No night sweats, No weight change, No mood changes, No difficulty concentrating, No sleep problems and No change in libido ROS Const Constitutional: Reports as per HPI; Denies fatigue, increased appetite, poor appetite, night sweats, weight gain or weight loss Cardio Card: Denies chest pain Resp Resp: Denies cough or dyspnea GI GI: Reports as per HPI; Denies abdominal pain, bloating, constipation, nausea or vomiting : Reports as per HPI and other; Denies difficulty voiding, dysuria, hematuria, hot flashes, nipple discharge, pelvic pain, prolapse symptoms, urinary frequency, urinary incontinence, urinary urgency, vaginal discharge, vaginal dryness, vaginal odor or vaginal pruritus Skin Skin/Breast: Denies changing lesions, breast mass, breast pain, breast skin changes or nipple discharge (more content not included)... Normal [facility] TSH WITH REFLEX TO FREE T4 I F ABNORMALon 09-22-2024 TSH Qn 3.93 m[IU]/L Normal 0.44-3.98 [facility] Comment on above: Order Comment: TSH t esting is performed using different testing methodology at [facility] than at other [facility]. Direct result comparisons should only be made within the same method. Performed By: #### T CHANI #### YOST SAHIL ([id number]) [facility] ([facility]) [address] [place] [address] Basophil percentageOrdered B y: Gabrielle Stone on 09-03-2023 Cholesterol [Mass/Vol] 173 mg/dL <200 [facility] Comment on above: <200 mg/dL Desirable 200-240 mg/dL Borderline >240 mg/dL High Risk Triglyceride [Mass/Vol] 116 mg/dL <199 [facility] Comment on above: The drugs N-Acetylcy steine and Metamizole may falsely depress this assay.Serum Triglycerides Reference Interval Normal <150 mg/dL Borderline high 150 - 199 mg/dL High 200 - 499 mg/dL Very High > or = 500 mg/dL Serum or plasma cholesterol in HDL measurement (mass/volume)Ordered By: Gabrielle Stone on 09-03-2023 Cholesterol in HDL [Mass/Vol] 52 mg/dL >40 [facility] Comment on above: The drugs N-Acetylcy steine and Metamizole may falsely depress this assay. Reference Range HDL <40 mg/dL Low HDL Cholesterol HDL >or= 60 mg/dL High HDL Cholesterol Serum or plasma cholesterol in VLDL measurement (mass/volume)Ordered By: Gabrielle Stone on 09-03-2023 Cholesterol in VLDL [Mass/Vol] 23 mg/dL 5-40 [facility] Serum or plasma low density lipoprotein (LDL) cholesterol measurement (mass/volume)Ordered By: Gabrielle Stone on 09-03-2023 Cholesterol in LDL [Mass/Vol] 98 mg/dL 0-130 [facility] No Panel InformationOrdered By: Gabrielle Stone on 03-01-2023 Follicle Stimulating Hormone 5.5 mIU/mL [facility] Comment on above: NORMAL REFERENCE RAN GES FEMALE FOLLICULAR 2.3 - 12.6 mIU/mL MID-CYCLE PEAK 5.2 - 17.5 mIU/mL LUTEAL 1.7 - 12.9 mIU/mL POST-MENOPAUSAL ON MHT 5.9 - 72.8 mIU/mL NOT ON MHT 12.7 - 132.2 mlU/mL MALE 0.7 - 10.8 mIU/mL Serum or plasma 17-hydroxypr ogesterone measurement (mass/volume)Ordered By: Gabrielle Stone on 03-01-2023 17-Hydroxyprogesteron e [Mass/Vol] 60 ng/dL . [facility] Comment on above: Adult Female Follicu lar 15 - 70 Luteal 35 - 290Performed at: - [facility] [address] [id number] Director: Edilberto Urbina MD, Phone: [phone] Serum or plasma estradiol (E 2) measurement (mass/volume)Ordered By: Gabrielle Stone on 03-01-2023 E2 [Mass/Vol] 230.1 pg/mL [facility] Comment on above: NORMAL REFERENCE RAN GES FEMALE FOLLICULAR 21.4 - 164.8 pg/mL MID-CYCLE PEAK 49.9 - 367.2 pg/mL LUTEAL 40.2 - 259.0 pg/mL POST-MENOPAUSAL ON MHT <11.0 - 462.1 pg/mL NOT ON MHT <11.0 - 58.3 pg/mL MALE <11.0 - 52.5 pg/mL NOTE:[employer] HAS CONFIRMED THE DRUG FULVETRANT (FASLODEX) MAY CAUSE FALSELY ELEVATED ESTRADIOL RESULTS WHEN USING THIS TEST METHOD. IF PATIENT IS TAKING FULVESTRANT AN ALTERNATIVE METHOD SHOULD BE USED TO DETERMINE ESTRADIOL CONCENTRATION. Serum or plasma prolactin me asurement (mass/volume)Ordered By: Gabrielle Stone on 03-01-2023 Prolactin [Mass/Vol] 6.0 ng/mL [facility] Comment on above: NORMAL REFERENCE RAN GES FEMALE NON- 2.2 - 30.3 ng/mL 8.1 - 347.6 ng/mL POST-MENOPAUSAL 0.7 - 31.5 ng/mL MALE 2.5 - 17.4 ng/mL Serum or plasma testosterone free measurement (mass/volume)Ordered By: Gabrielle Stone on 03-01-2023 Testosterone Free [Mass/Vol] 0.7 pg/mL 0.0-4.2 [facility] Comment on above: Performed at: [address] [id number] Director: Edilberto Urbina MD, Phone: [phone] Whole blood hemoglobin A1c/t otal hemoglobin ratio (mass fraction)Ordered By: Gabrielle Stone on 03-01-2023 HbA1c (Bld) [Mass fraction] 5.4 % 3.8-5.6 [facility] Comment on above: Normal < 5.7 % Predi abetic 5.7 - 6.4 % Diabetic >or= 6.5 % Please note range changes. Blood Pressure Cuff Sizeon 1 11-12-2021 Fall risk assessment a) No falls within the last year [facility] Work Phone: Tobacco use status CPHS b) No [facility] Work Phone: Blood Pressure Cuff Size Adult [facility] Work Phone: CBC AND DIFFERENTIALon 09-11 % AUTOMATED IMMATURE GRAN 0.2 % Normal 0.0 - 0.9 [facility] Comment on above: Result Comment: Gabbi ture Granulocyte Count (IG) includes promyelocytes, myelocytes and metamyelocytes but does not include bands. Percent differential counts (%) should be interpreted in the context of the absolute cell counts (cells/L). Performed By: #### C BCDF #### [id number] [place] [address] Basophils (Bld) [#/Vol] 0.05 10*3/uL Normal 0.00 - 0.10 [facility] Comment on above: Performed By: #### C BCDF #### [address] [address] Basophils/100 WBC (Bld) 0.5 % Normal 0.0 - 2.0 [facility] Comment on above: Performed By: #### C BCDF #### [address] [address] Eosinophils (Bld) [#/Vol] 0.18 10*3/uL Normal 0.00 - 0.70 [facility] Comment on above: Performed By: #### C BCDF #### [address] [address] Eosinophils/100 WBC (Bld) 2.0 % Normal 0.0 - 6.0 [facility] Comment on above: Performed By: #### C BCDF #### [address] [address] Erythrocyte distribution width (RBC) [Ratio] 15.7 % High 11.5 - 14.5 [facility] Comment on above: Performed By: #### C BCDF #### [address] [address] Hematocrit (Bld) [Volume fraction] 42.3 % Normal 36.0 - 46.0 [facility] Comment on above: Performed By: #### C BCDF #### [address] [address] Hemoglobin (Bld) [Mass/Vol] 13.0 g/dL Normal 12.0 - 16.0 [facility] Comment on above: Performed By: #### C BCDF #### [address] [address] Lymphocytes (Bld) [#/Vol] 3.62 10*3/uL Normal 1.20 - 4.80 [facility] Comment on above: Performed By: #### C BCDF #### [address] [address] Lymphocytes/100 WBC (Bld) 39.5 % Normal 13.0 - 44.0 [facility] Comment on above: Performed By: #### C BCDF #### [address] [address] MCHC (RBC) [Mass/Vol] 30.7 g/dL Low 32.0 - 36.0 [facility] Comment on above: Performed By: #### C BCDF #### [address] [address] [address] MCV (RBC) [Entitic vol] 86 fL Normal 80 - 100 [facility] Comment on above: Performed By: #### C BCDF #### [address] [address] Monocytes (Bld) [#/Vol] 0.49 10*3/uL Normal 0.10 - 1.00 [facility] Comment on above: Performed By: #### C BCDF #### [address] [address] Monocytes/100 WBC (Bld) 5.3 % Normal 2.0 - 10.0 [facility] Comment on above: Performed By: #### C BCDF #### [address] [address] Neutrophils (Bld) [#/Vol] 4.80 10*3/uL Normal 1.20 - 7.70 [facility] Comment on above: Result Comment: Perc ent differential counts (%) should be interpreted in the context of the absolute cell counts (cells/L). Performed By: #### C BCDF #### [address] [address] Neutrophils/100 WBC (Bld) 52.5 % Normal 40.0 - 80.0 [facility] Comment on above: Performed By: #### C BCDF #### [address] [address] Platelets (Bld) [#/Vol] 338 10*3/uL Normal 150 - 450 [facility] Comment on above: Performed By: #### C BCDF #### [address] [address] RBC 4.91 x10E12/L Normal 4.00 - 5.20 [facility] Comment on above: Performed By: #### C BCDF #### [address] [address] WBC (Bld) [#/Vol] 9.2 10*3/uL Normal 4.4 - 11.3 [facility] Comment on above: Performed By: #### C BCDF #### [address] [address] COMPREHENSIVE PANELon 2021 Albumin [Mass/Vol] 4.5 g/dL Normal 3.4 - 5.0 [facility] Comment on above: Performed By: #### C MP #### [address] [address] ALP [Catalytic activity/Vol] 97 U/L Normal 33 - 110 [facility] Comment on above: Performed By: #### C MP #### [address] [address] ALT [Catalytic activity/Vol] 20 U/L Normal 7 - 45 [facility] Comment on above: Result Comment: Janes ents treated with Sulfasalazine may generate falsely decreased results for ALT. Performed By: #### C MP #### [address] [address] Anion gap [Moles/Vol] 13 mmol/L Normal 10 - 20 [facility] Comment on above: Performed By: #### C MP #### [address] [address] AST [Catalytic activity/Vol] 22 U/L Normal 9 - 39 [facility] Comment on above: Performed By: #### C MP #### [address] [address] Bilirubin [Mass/Vol] 0.4 mg/dL Normal 0.0 - 1.2 [facility] Comment on above: Performed By: #### C MP #### [address] [address] Calcium [Mass/Vol] 9.0 mg/dL Normal 8.6 - 10.3 [facility] Comment on above: Performed By: #### C MP #### [address] [address] Chloride [Moles/Vol] 105 mmol/L Normal 98 - 107 [facility] Comment on above: Performed By: #### C MP #### [address] [address] Creatinine [Mass/Vol] 0.67 mg/dL Normal 0.50 - 1.05 [facility] Comment on above: Performed By: #### C MP #### [address] [address] eGFR FEMALE >90 Normal >90 [facility] Comment on above: Result Comment: CALC ULATIONS OF ESTIMATED GFR ARE PERFORMED USING THE 2020 CKD-EPI STUDY REFIT EQUATION WITHOUT THE RACE VARIABLE FOR THE IDMS-TRACEABLE CREATININE METHODS. https://jasn.asnjournals.org/content/early//ASN.852234 7058 Performed By: #### C MP #### [address] [address] Glucose [Mass/Vol] 91 mg/dL Normal 74 - 99 [facility] Comment on above: Performed By: #### C MP #### [address] [address] HCO3 (Bld) [Moles/Vol] 24 mmol/L Normal 21 - 32 [facility] Comment on above: Performed By: #### C MP #### [address] [address] Potassium [Moles/Vol] 3.8 mmol/L Normal 3.5 - 5.3 [facility] Comment on above: Performed By: #### C MP #### [address] [address] Protein [Mass/Vol] 7.4 g/dL Normal 6.4 - 8.2 [facility] Comment on above: Performed By: #### C MP #### [address] [address] Sodium [Moles/Vol] 138 mmol/L Normal 136 - 145 [facility] Comment on above: Performed By: #### C MP #### [address] [address] Urea nitrogen [Mass/Vol] 15 mg/dL Normal 6 - 23 [facility] Comment on above: Performed By: #### C #### [facility] [address] [place] [address] Complete Blood Count + Diffrussel flores 09-11-2022 Basophils/100 WBC (Bld) 0.5 % 0.0 - 2.0 [facility] Work Phone: [phone] Erythrocyte distribution width (RBC) [Ratio] 15.7 % above high threshold See Below [facility] Work Phone: [phone] Comment on above: Reference Range: 11. 5 - 14.5 Hematocrit (Bld) [Volume fraction] 42.3 % See Below [facility] Work Phone: [phone] Comment on above: Reference Range: 36. 0 - 46.0 Hemoglobin (Bld) [Mass/Vol] 13.0 g/dL See Below [facility] Work Phone: [phone] Comment on above: Reference Range: 12. 0 - 16.0 Lymphocytes/100 WBC (Bld) 39.5 % See Below [facility] Work Phone: [phone] Comment on above: Reference Range: 13. 0 - 44.0 MCHC (RBC) [Mass/Vol] 30.7 g/dL below low threshold See Below [facility] Work Phone: [phone] Comment on above: Reference Range: 32. 0 - 36.0 MCV (RBC) [Entitic vol] 86 fL 80 - 100 [facility] Work Phone: [phone] Monocytes/100 WBC (Bld) 5.3 % 2.0 - 10.0 [facility] Work Phone: [phone] Neutrophils/100 WBC (Bld) 52.5 % See Below [facility] Work Phone: [phone] Comment on above: Reference Range: 40. 0 - 80.0 Platelets (Bld) [#/Vol] 338 10*3/uL 150 - 450 [facility] Work Phone: RBC (Bld) [#/Vol] 4.91 {x10E12/L} See Below [facility] Work Phone: Comment on above: Reference Range: 4.0 0 - 5.20 WBC (Bld) [#/Vol] 9.2 10*3/uL 4.4 - 11.3 [facility] Work Phone: Complete Blood Count + Differential 0.05 {x10E9/L} See Below [facility] Work Phone: Comment on above: Reference Range: 0.0 0 - 0.10 Complete Blood Count + Differential 0.18 {x10E9/L} See Below [facility] Work Phone: Comment on above: Reference Range: 0.0 0 - 0.70 Complete Blood Count + Differential 0.49 {x10E9/L} See Below [facility] Work Phone: Comment on above: Reference Range: 0.1 0 - 1.00 Complete Blood Count + Differential 3.62 {x10E9/L} See Below [facility] Work Phone: Comment on above: Reference Range: 1.2 0 - 4.80 Complete Blood Count + Differential 4.80 {x10E9/L} See Below [facility] Work Phone: Comment on above: Reference Range: 1.2 0 - 7.70 Percent differential counts (%) should be interpreted in the context of the absolute cell counts (cells/L). Complete Blood Count + Differential 2.0 % 0.0 - 6.0 [facility] Work Phone: Complete Blood Count + Differential 0.2 % 0.0 - 0.9 [facility] Work Phone: Comment on above: Immature Granulocyte Count (IG) includes promyelocytes, myelocytes and metamyelocytes but does not include bands. Percent differential counts (%) should be interpreted in the context of the absolute cell counts (cells/L). Laboratory - Chemistry and C hemistry - challengeon 09-11-2022 Albumin BCP dye [Mass/Vol] 4.5 g/dL 3.4 - 5.0 [facility] Work Phone: [phone] ALP [Catalytic activity/Vol] 97 U/L 33 - 110 [facility] Work Phone: [phone] ALT With P-5'-P [Catalytic activity/Vol] 20 U/L 7 - 45 [facility] Work Phone: [phone] Comment on above: Patients treated wit h Sulfasalazine may generate falsely decreased results for ALT. Anion gap [Moles/Vol] 13 mmol/L 10 - 20 [facility] Work Phone: [phone] AST With P-5'-P [Catalytic activity/Vol] 22 U/L 9 - 39 [facility] Work Phone: [phone] Bilirubin [Mass/Vol] 0.4 mg/dL 0.0 - 1.2 [facility] Work Phone: [phone] Calcium [Mass/Vol] 9.0 mg/dL 8.6 - 10.3 [facility] Work Phone: [phone] Chloride [Moles/Vol] 105 mmol/L 98 - 107 [facility] Work Phone: [phone] CO2 [Moles/Vol] 24 mmol/L 21 - 32 [facility] Work Phone: [phone] Creatinine [Mass/Vol] 0.67 mg/dL See Below [facility] Work Phone: [phone] Comment on above: Reference Range: 0.5 0 - 1.05 Glucose [Mass/Vol] 91 mg/dL 74 - 99 [facility] Work Phone: [phone] Potassium [Moles/Vol] 3.8 mmol/L 3.5 - 5.3 [facility] Work Phone: Protein [Mass/Vol] 7.4 g/dL 6.4 - 8.2 [facility] Work Phone: Sodium [Moles/Vol] 138 mmol/L 136 - 145 [facility] Work Phone: [phone] TSH Qn 5.33 m[IU]/L above high threshold See Below [facility] Work Phone: Comment on above: Reference Range: 0.4 4 - 3.98 TSH testing is performed using different testing methodology at [facility] than at other [facility]. Direct result comparisons should only be made within the same method. Urea nitrogen [Mass/Vol] 15 mg/dL 6 - 23 [facility] Work Phone: No Panel Informationon 09-11 >90 >90 [facility] Work Phone: Comment on above: CALCULATIONS OF WAYNE MATED GFR ARE PERFORMED USING THE 2020 CKD-EPI STUDY REFIT EQUATION WITHOUT THE RACE VARIABLE FOR THE IDMS-TRACEABLE CREATININE METHODS.https://jasn.asnjournals.org/content// N.1737187429 Office Visit (Internal Medic ine)on 09-11-2022 Follow-up visit Diagnoses/Problems Assessed Thyroid disease (246.9) (E07.9) Rash (782.1) (R21) Fatigue (780.79) (R53.83) Orders Fatigue Vitamin D 25-Hydroxy; Status:Active; Requested for:11Sep2022; Perform:Lab Services - Lab To Draw (Blood Test); Due:10Dec2022;Ordered; For:Fatigue; Ordered By:Janice Lloyd; Nubia Complete Blood Count + Differential; Status:Active; Requested for:11Sep2022; Perform:Lab Services - Lab To Draw (Blood Test); Due:10Dec2022;Ordered; For:Rash; Ordered By:Janice Lloyd; Comprehensive Metabolic Panel; Status:Active; Requested for:11Sep2022; Perform:Lab Services - Lab To Draw (Blood Test); Due:10Dec2022;Ordered; For:Rash; Ordered By:Janice Lloyd; Vitamin B12, Serum; Status:Active; Requested for:[id number]; Perform:Lab Services - Lab To Draw (Blood Test); Due:10Dec2022;Ordered; For:Rash; Ordered By:Janice Lloyd; Thyroid disease TSH WITH REFLEX TO FREE T4 IF ABNORMAL; Status:Active; Requested for:[id number]; Perform:Lab Services - Lab To Draw (Blood Test); Due:10Dec2022;Ordered; For:Thyroid disease; Ordered By:Janice Lloyd; Provider Impressions 1. Hypothyroidism - will check tsh 2. GERD - continue 10mg po daily ' - check cmp 3. Anxiety - controlled - seeing counselor 4. Rosacea, dry lips - will check cbc, b12 and vit d Chief Complaint 36 y/o female presents for 6 month f/u Denies needing medication RF's Denies new complaints History of Present IllnessPatient is here today for 6 week follow up Her son is 8mo only now, still breast feeding. Patient feels like her lips are peeling more than normal. She has no more choking issues unless she forgets her omeprazole. Review of Systems Constitutional: no fever, no chills and not feeling poorly. ENT: no nasal discharge and no sore throat. Cardiovascular: no chest pain, no palpitations and no lower extremity edema. Respiratory: no cough and not coughing up sputum. Gastrointestinal: no abdominal pain, no nausea and no diarrhea. Active Problems Problems Anxiety (300.00) (F41.9) Cough with exposure to COVID-19 virus (786.2,V01.79) (R05.8,Z20.822) Dysphagia (787.20) (R13.10) GERD (gastroesophageal reflux disease) (530.81) (K21.9) Hypothyroidism (244.9) (E03.9) and not yet delivered in third trimester (V22.1) (Z34.93) Ringworm (110.9) (B35.9) Sebaceous cyst (706.2) (L72.3) Thyroid disease (246.9) (E07.9) Surgical History Problems History of section History of Dilation and curettage History of Tonsillectomy Family History Other Family history of hypertension (V17.49) (Z82.49) Family history of thyroid disease (V18.19) (Z83.49) Social History Problems Never a smoker No advance directives (V49.89) (Z78.9) Non-smoker (V49.89) (Z78.9) Allergies Medication sulfa Recorded By: Dalia Pulido; 10/02/2019 10:49:28 AM Additional reactions - Hives/Urticaria Current Meds Medication NameInstruction Aspirin EC 81 MG Oral Tablet Delayed ReleaseTAKE 1 TABLET DAILY. Levothyroxine Sodium 125 MCG Oral TabletTAKE 1 TABLET DAILY. Omeprazole 10 MG Oral Capsule Delayed ReleaseTAKE 1 CAPSULE Daily TABS1 daily Vitals Vital Signs Recorded: [id number] 03:39PM Heart Rate55 [id number] Ijgqsgyoj75 Blood Pressure Cuff SizeAdult Height5 ft 4.57 in Eshrnd476 lb BMI Rbawboykdk60.01 kg/m2 BSA Calculated2.2 Tobacco Useb) No Falls Screening (Age 18+)a) No falls within the last year Physical Exam Constitutional General appearance: Alert and in no acute distress. Eyes Inspection of eyes: Sclera and conjunctiva were normal. Pupil exam: Pupils were equal in size. Extraocular movements were intact. Ears, Nose, Mouth, and Throat rosacea on joyce cheeks, dry and peeling lips. Pulmonary Respiratory assessment: No respiratory distress, normal respiratory rhythm and effort. Auscultation of Lungs: Clear bilateral breath sounds. Cardiovascular Auscultation of heart: Apical pulse normal, heart rate and rhythm normal, normal S1 and S2, no murmurs and no pericardial rub. Exam for edema: No peripheral edema. Musculoskeletal Inspection/palpation of joints, bones and muscles: No joint swelling. Normal movement of all extremities. Neurologic Cranial nerves: Nerves 2-12 were intact, no focal neuro defects. Psychiatric Orientation: Oriented to person, place, and time. Mood and affect: Normal. Signatures Electronically signed by : Jaince Lloyd DO; Sep 11 2022 4:08PM EST (Author) Normal [email or web address] T4 - Free Thyroxine, Serumon 09-11-2022 Free T4 [Mass/Vol] 0.69 ng/dL See Below -[facility] Work Phone: Comment on above: Reference Range: 0.6 1 - 1.12 Thyroxine Free testing is performed using different testing methodology at [facility] than at other [facility]. Direct result comparisons should only be made within the same method.. Biotin can cause falsely elevated free T4 results. Patients taking a Biotin dose of up to 10 mg/day should refrain from taking Biotin for 24 hours before sample collection. Patient taking a Biotin dose of >10 mg/day should consult with their physician or the laboratory before the blood draw. THYROXINE,FREEon 09-11-2022 THYROXINE,FREE 0.69 ng/dL Normal 0.61 - 1.12 [facility] Comment on above: Result Comment: Thyr oxine Free testing is performed using different testing methodology at [facility] than at other [facility]. Direct result comparisons should only be made within the same method. . Biotin can cause falsely elevated free T4 results. Patients taking a Biotin dose of up to 10 mg/day should refrain from taking Biotin for 24 hours before sample collection. Patient taking a Biotin dose of >10 mg/day should consult with their physician or the laboratory before the blood draw. Performed By: #### T 4FRE #### [address] [address] TSH WITH REFLEX TO FREE T4 I F ABNORMALon 09-11-2022 TSH Qn 5.33 m[IU]/L High 0.44 - 3.98 [facility] Comment on above: Result Comment: TSH testing is performed using different testing methodology at [facility] than at other [facility]. Direct result comparisons should only be made within the same method. Performed By: #### T HYDS #### [address] [address] VITAMIN B12on 09-11-2022 Cobalamin (Vitamin B12) [Mass/Vol] 336 pg/mL Normal 211 - 911 [facility] Comment on above: Performed By: #### V TB12 #### [address] [address] VITAMIN D, 25-HYDROXYon 08-24 VITAMIN D, 25-HYDROXY 27 ng/mL Abnormal [facility] Comment on above: Result Comment: . DEFICIENCY: < 20 NG/ML INSUFFICIENCY: 20-29 NG/ML SUFFICIENCY: 30-100 NG/ML THIS ASSAY ACCURATELY QUANTIFIES THE SUM OF VITAMIN D3, 25-HYDROXY AND VIT D2,25-HYDROXY. Performed By: #### V TDOH #### [address] [address] Vitamin B12, Serumon Cobalamin (Vitamin B12) [Mass/Vol] 336 pg/mL 211 - 911 [facility] Work Phone: Vitamin D 25-Hydroxyon 09-11 25-hydroxyvitamin D3 [Mass/Vol] 27 ng/mL Abnormal [facility] Work Phone: Comment on above: .DEFICIENCY: < 20 NG /MLINSUFFICIENCY: 20-29 NG/MLSUFFICIENCY: 30-100 NG/MLTHIS ASSAY ACCURATELY QUANTIFIES THE SUM OFVITAMIN D3, 25-HYDROXY AND VIT D2,25-HYDROXY. Laboratory - Chemistry and C hemistry - challengeon 05-01-2022 TSH Qn 1.22 m[IU]/L See Below [facility] Work Phone: Comment on above: Reference Range: 0.4 4 - 3.98 TSH testing is performed using different testing methodology at [facility] than at other [facility]. Direct result comparisons should only be made within the same method. TSH WITH REFLEX TO FREE T4 I F ABNORMALon 05-01-2022 TSH Qn 1.22 m[IU]/L Normal 0.44 - 3.98 [facility] Comment on above: Result Comment: TSH testing is performed using different testing methodology at [facility] than at [facility]. Direct result comparisons should only be made within the same method. Performed By: #### T HYDS #### [address] [address] Blood Pressure Cuff Sizeon 0 03-20-2022 Adult depression [facility] assessment [facility]: Fall risk assessment a) No falls within the last year [facility] Work [facility]: Tobacco use status [facility] b[facility] Blood Pressure Cuff Size Adult -[facility] Work Phone: Office Visit (Internal Medic ine)on 03-20-2022 Follow-up visit Diagnoses/Problems Assessed GERD (gastroesophageal reflux disease) (530.81) (K21.9) Hypothyroidism (244.9) (E03.9) Orders GERD (gastroesophageal reflux disease) Start: Omeprazole 10 MG Oral Capsule Delayed Release; TAKE 1 CAPSULE Daily Rx By: Janice Lloyd; Dispense: 90 Days ; #:90 Capsule; Refill: 3;For: GERD (gastroesophageal reflux disease); THERESA = N; Verified Transmission to [facility]; Last Updated By: Sreedhar Manrique; 03/20/2022 10:33:40 AM Hypothyroidism TSH WITH REFLEX TO FREE T4 IF ABNORMAL; Status:Active; Requested for:[id number]; Perform:Lab Services - Lab To Draw (Blood Test); Due:[id number];Ordered; For:Hypothyroidism; Ordered By:Janice Lloyd; TSH WITH REFLEX TO FREE T4 IF ABNORMAL; Status:Active; Requested for:20Mar2022; Perform:Lab Services - Lab To Draw (Blood Test); Due:[id number];Ordered; For:Hypothyroidism; Ordered By:Janice Lloyd; Provider Impressions 1. Hypothyroidism - Tsh was 0.22 on most recent labs outside system -advised her to skip one day a month and repeat in 6 weeks 2. GERD - will try lowest dose at 10mg omeprazole and see if still has resolution, discussed taking as minimal as possibly to have no symptoms whether that?s 10mg every ay of 10mg ever other day is fine 3. Anxiety - controlled - seeing cousnelor Chief Complaint 36 y/o female presents for 6 month f/u Pt would like to review her thyroid Pt would like to talk about the Omeprazole and possibly getting off it since she is no longer going thought heartburn Adult Risk Screening Initial Fall Risk Screening: CASSANDRA has not fallen in the last 6 months. Tobacco Screening: CASSANDRA does not use tobacco. History of Present Illness Patient is here today for 6 mo follow up She wants to discuss getting of the omeprazole .She had her son in December, she stopped taking it and about 5 weeks post- and she was having trouble swallowing and a chocking sensation again. She started taking it again and symptoms resolved. She had an EGD and negative bx results. Anxiety is well controlled, just doing counseling, no mediations at this point. Review of Systems Constitutional: no fever, no chills and not feeling poorly. ENT: no nosebleeds, no nasal discharge and no sore throat. Cardiovascular: no chest pain, no palpitations and no intermittent leg claudication. Respiratory: no cough and not coughing up sputum. Active Problems Problems Anxiety (300.00) (F41.9) Cough with exposure to COVID-19 virus (786.2,V01.79) (R05.8,Z20.822) Dysphagia (787.20) (R13.10) GERD (gastroesophageal reflux disease) (530.81) (K21.9) Hypothyroidism (244.9) (E03.9) and not yet delivered in third trimester (V22.1) (Z34.93) Ringworm (110.9) (B35.9) Sebaceous cyst (706.2) (L72.3) Thyroid disease (246.9) (E07.9) Surgical History Problems History of section History of Dilation and curettage History of Tonsillectomy Family History Other Family history of hypertension (V17.49) (Z82.49) Family history of thyroid disease (V18.19) (Z83.49) Social History Problems Never a smoker No advance directives (V49.89) (Z78.9) Non-smoker (V49.89) (Z78.9) Allergies Medication sulfa Recorded By: Dalia Pulido; 10/02/2019 10:49:28 AM Additional reactions - Hives/Urticaria Current Meds Medication NameInstruction Aspirin EC 81 MG Oral Tablet Delayed ReleaseTAKE 1 TABLET DAILY. Levothyroxine Sodium 125 MCG Oral TabletTAKE 1 TABLET DAILY. TABS1 daily Vitals Vital Signs Recorded: 20Mar2022 10:05AM Heart Rate68 Hndxpwnf956 Ldwdvvnhv07 Blood Pressure Cuff SizeAdult Height5 ft 4.57 in Baazvp834 lb BMI Dkpqkjbcjt70.16 kg/m2 BSA Calculated2.16 Tobacco Useb) No PHQ-2 #1. Over the last 2 weeks have you felt down, depressed or hopeless? (If yes, answer PHQ-9 below)No Falls Screening (Age 18+)a) No falls within the last year Physical Exam Constitutional General appearance: Alert and in no acute distress. Eyes Inspection of eyes: Sclera and conjunctiva were normal. Pupil exam: Pupils were equal in size. Extraocular movements were intact. Musculoskeletal Inspection/palpation of joints, bones and muscles: No joint swelling. Normal movement of all extremities. Psychiatric Orientation: Oriented to person, place, and time. Mood and affect: Normal. Signatures Electronically signed by : Janice Lloyd DO; Mar 20 2022 2:10PM EST (Author) Normal [facility] - Chemistry and C hemistry - challengeon 02-28-2022 Free T4 [Mass/Vol] 1.02 ng/dL 0.76-1.46 [facility] Work Phone: No Panel Informationon 02-28 Thyroid Stimulating Hormone (TSH) 0.22 uIU/mL 0.358-3.74 [facility] Work Phone: Provider Note - ED v3on 05- Provider Note - ED v3 Provider Note: Chart Review: HISTORY OF PRESENTING ILLNESS CASSANDRA is a 36 year old Female and was seen by me at 02-Feb-2022 09:29. The historian is the patient. Triage Information: Most recent Vital Sign Value Date PAST MEDICAL HISTORY ALLERGIES/INTOLERANCES: Allergy Allergen: sulfa drugs Type: Drug Category Reaction: Hives/Urticaria HEALTH HISTORY: History of hypothyroidism, GERD, and PCOS. Had on 12/29/21; conceived via IVF. Family history: no pertinent history. Social history: non-smoker. . Has a 3 yo daughter and son was born 12/2021. 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 OUTPATIENT MEDICATIONS: Home Medications Review Status for Reconciliation: Complete Med Status: Patient Currently Takes Medications Drug Name: levothyroxine 100 mcg (0.1 mg) oral tablet Instructions: 1 tab(s) orally once a day Drug Name: omeprazole Instructions: null Drug Name: dicloxacillin 500 mg oral capsule Instructions: 1 cap(s) orally 4 times a day x 10 days SIGNIFICANT EVENTS: History of x2 (2nd was on 12/29/21), excision of uterine polyps, and T&A (remote). Has conceived x 2 via IVF process. Has received COVID-19 vaccines and the 6103-9703 influenza vaccine. FAST FOOD SERVICES MANAGER: Is : no Is : yes CRITICAL CARE VITAL SIGNS: T PRBP SpO2O2(LPM) %FiO2 Method 02-Feb-2022 09:21:[id number] 97 MDM MDM/ED COURSE: This note was generated with voice recognition software and may contain errors including spelling, grammar, syntax, and misrecognization of what was dictated CHIEF COMPLAINT pain/swelling/redness of L breast HISTORY OF PRESENT ILLNESS Presents for evaluation of swelling, pain, and redness to her L breast - sharp, aching discomfort started last night, and she noticed the redness, swelling, and warmth this AM when she woke up. Is currently her 5 month old - he eats approx every 2-3 hours (even through the night), without any recent change in feeding pattern or appetite. Discomfort is worst when she is actively . No recent change in milk production. She denies any discomfort to her nipple, but reports areola is also a little swollen/tender. No abnormal discharge from breasts noted, and no known swelling in her armpits. She denies any fever, chills, body aches, malaise, increased fatigue, nausea, vomiting, and other constitutional S/S. Reports a hot shower seemed to help the discomfort a little; has not tried any other OTC medications or conservative measures for her symptoms. Denies any other complaints. Reports had one episode of similar sxs when her 3 year old daughter was a few years ago - was treated with antibiotics and symptoms resolved. REVIEW OF SYSTEMS 10 systems reviewed negative with exception of history of present illness listed above PHYSICAL EXAMINATION General: Pleasant female, alert and oriented, in no acute distress. Eyes: Non-icteric; conjunctiva clear Neck: Supple; no lymphadenopathy Respiratory: Lungs are clear to auscultation, Respirations are easy and non-labored, Breath sounds are equal, Symmetrical chest wall expansion. Cardiovascular: Normal rate, Regular rhythm. Normal S1S2. No m/r/g. Musculoskeletal: Grossly normal range of motion/strength, no joint tenderness or swelling. Integumentary: [place], warm, dry. L breast with soft, pink, tender, mildly edematous wedge-shaped area noted to approx 6-7 o'clock position of breast (from areola, where area is slightly more firm, and extending proximally) - no fluctuance, pointing, or streaking that extends beyond localized area; no palpable lump or obvious abscess. No skin lesions, cracks, or rashes noted. Nipple unremarkable - no inversion/retraction or noted discharge. Neurologic: Alert, Oriented, Normal sensory, Normal motor function. Cognition and Speech: Oriented, Speech clear and coherent. Psychiatric: Cooperative, Appropriate mood & affect. MEDICAL DECISION MAKING Course: Worsening; stable. Impression/Plan: No red flags on exam today. Is afebrile, and denies systemic symptoms. Low suspicion for breast abscess at this point, but emphasized importance of close monitoring and f/u with PCP/BETTING AGENCY COUNTER CLERK. Sxs consistent with early mastitis. Patient will be discharged home with oral antibiotics - Dicloxacillin QID. Instructed to take full course of antibiotics (start DEANN), even if symptoms resolve more quickly, to push fluids, rest, and to use appropriate over the counter medications for management of symptoms - Ibuprofen/tylenol may be helpful. Reassurance provided - is safe for baby to continue nursing. Discussed importance of continuing frequent nursing/pumping/hand expression with complete emptying of breast. Recommended gentle massage as able to tolerate, and warm, moist compresses prior to , to help stimulate milk flow; co (more content not included)... Normal [facility] Basophil percentageon 2021 WBC (Bld) [#/Vol] 11.4 10*3/uL 4.4-11.0 [facility] Work Phone: Blood erythrocytes count (nu mber/volume)on 12-30-2021 RBC (Bld) [#/Vol] 3.39 10*6/uL 4.2-5.4 [facility] Work Phone: Blood hemoglobin measurement (mass/volume)on 12-30-2021 Hemoglobin (Bld) [Mass/Vol] 8.6 g/dL 12.0-15.0 [facility] Work Phone: Blood platelet mean volumeon 12-30-2021 Platelet mean volume (Bld) [Entitic vol] 9.9 fL 6.2-12.0 [facility] Work Phone: Determination of erythrocyte mean corpuscular volume (MCV)on 12-30-2021 MCV (RBC) [Entitic vol] 81.7 fL 81-99 [facility] Work Phone: Hematocrit Auto (Bld) [Volum e fraction]on 12-30-2021 Hematocrit (Bld) [Volume fraction] 27.7 % 37-47 [facility] Work Phone: Laboratory - Hematology and Cell countson 12-30-2021 Erythrocyte distribution width (RBC) [Entitic vol] 50.5 fL 35.1-43.9 [facility] Work Phone: [phone] Erythrocyte distribution width (RBC) [Ratio] 17.4 % 11.6-14.6 [facility] Work Phone: [phone] MCH (RBC) [Entitic mass] 25.4 pg 27.0-32.0 [facility] Work Phone: MCHC Auto (RBC) [Mass/Vol]on 12-30-2021 MCHC (RBC) [Mass/Vol] 31.0 g/dL 32-[address] [facility] Work Phone: Platelets bldon 12-30-2021 Platelets (Bld) [#/Vol] 309 10*3/uL 150-450 [facility] Work Phone: [phone] Absolute lymphocyte counton 12-29-2021 Lymphocytes Auto (Unsp spec) [#/Vol] 2.00 10*3/uL 0.83-4.51 [facility] Work Phone: [phone] Basophil percentageon 2021 Basophils/100 WBC (Bld) 0.2 % 0-1 [facility] Work Phone: [phone] Eosinophils/100 WBC (Bld) 0.9 % 0-5 [facility] Work Phone: Neutrophils (Bld) [#/Vol] 8.7 10*3/uL 2.0-7.7 [facility] Work Phone: Neutrophils/100 WBC (Bld) 72.8 % 47-70 [facility] Work Phone: Blood lymphocytes/100 leukoc yteson 12-29-2021 Lymphocytes/100 WBC (Bld) 16.7 % 19-41 [facility] Work Phone: [phone] Blood monocytes/100 leukocyt eson 12-29-2021 Monocytes/100 WBC (Bld) 8.9 % 0-10 [facility] Work Phone: Laboratory - Hematology and Cell countson 12-29-2021 Immature granulocytes/100 WBC (Bld) 0.500 % 0.0-0.9 [facility] Work Phone: Comment on above: IG% - Immature Granu locytes (promyelocytes, myelocytes and metamyelocytes) > 1% indicates that a LEFT SHIFT is Present. Nucleated RBC/100 WBC (Bld) [Ratio] 0 % 0-5 [facility] Work Phone: Covid 19 Resultson 2 SARS-CoV-2 (COVID-19) RNA NEPTALI+probe Ql (Unsp spec) NEGATIVE COVID-19 Test Coronaviruses are common world-wide and are the cause of many common colds. SARS-COV2 is a new coronavirus that began circulating worldwide in 2019 so we are calling it COVID-19. It has been estimated that four out of five patients with COVID-19 will recover at home without the need for medical attention. Symptoms of COVID-19 may include cough, fever, shortness of breath, loss of taste or smell and other flu-like symptoms including chills, sore muscles, sore throat, and headache. Severe illness is more common in older people and people with other health problems such as high blood pressure, obesity, and immune system problems. If the test is positive, you have COVID-19. You will be contacted by the ordering physicians office and instructed to remain on home isolation, in accordance with CDC guidelines. You may also be contacted by the [facility] to see if any of your close contacts may have been exposed to the virus and need to quarantine. If the test is negative, you likely do not have COVID-19 at this time, but you still may have a different illness that can spread to other people (like Influenza, or the Flu) and could still be at risk for getting COVID-19. We recommend that you stay away from other people to limit the spread of illness until your symptoms are improving and you are fever-free for 24 hours without the use of fever lowering medications such as acetaminophen or ibuprofen. No test is 100% accurate so if you are still concerned you may have COVID-19, talk to your doctor about the need to continue to stay away from others. Medicines Unless your provider told you not to use the following: Acetaminophen (Tylenol and others) is generally safe. Anti-inflammatory medications, such as Ibuprofen (Advil or Motrin) or Naproxen (Aleve) can also be used. Tqfu-pnk-njwvrwh cough and cold medicines can be used according to the instructions on the package. Some wwwn-mta-eolxtae medicines also contain acetaminophen. Make sure you are not taking more than your recommended dose. For those not hospitalized, there is no specific treatment available for this illness. Antibiotics do not treat Coronaviruses. Follow-Up Follow up with your doctor by scheduling a virtual visit or consider follow-up at one of our urgent care fever clinics. If you are having difficulty breathing, or are very weak and having difficulty standing, this is a medical emergency. Call 911 or have someone take you to the nearest emergency room immediately. If possible, wear a facemask. Additional guidance from the CDC for patients who tested POSITIVE for COVID-19 How to isolate: Isolate yourself in a specific room at home and limit your contact with others. Use a separate bathroom from other members of the household, when possible. Leave home only to get essential medical care. Do not go to work, school or public areas. Avoid using public transportation, ride-sharing, or taxis. Restrict contact with pets and other animals. If you must care for your pet or be around animals while you are sick, wash your hands before and after your interaction and wear a facemask. Make sure that shared spaces in the home have good airflow, such as by an air conditioner or an opened window, weather permitting. Personal Hygiene Procedures: Wear a face mask when in the same room as other people or pets. If a face mask interferes with your breathing, others should wear a mask when sharing space with you. Frequent hand-washing: wash your hands with soap and water for at least 20 seconds. If soap and water are not available, use alcohol-based hand factory assembler. Avoid touching your eyes, nose, and mouth with unwashed hands. Household Hygiene Procedures: Avoid sharing personal household items such as dishes, glassware, cups, eating utensils, towels or bedding with other people or pets in your home. After use, these items should be washed with soap and hot water. Disinfect all high-touch surfaces every day with antibacterial cleaning solutions such as Lysol wipes, bleach, cleansers, etc. High-touch surfaces include tabletops, doorknobs, bathroom fixtures, toilets, phones, keyboards, tablets and bedside tables. Immediately clean any surfaces that may have blood, poop or body fluids on them, using antibacterial cleaning solutions such as Lysol wipes, bleach, cleansers, etc. If clothing or bedding come into contact with blood, poop or body fluids, they should be washed immediately. Follow the directions on the laundry detergent and clothing labels but hot water is recommended when possible. Stopping home isolation precautions: If possible, consult your doctor before stopping home isolation precautions. According to the CDC, you can discontinue home isolation precautions when you have met both of these criteria: Your fever and respiratory symptoms have been gone for 24 kayy (more content not included)... Normal [facility] INFLUENZA A/B, COVID 2019 PC R,SYMPTOMATICon 12-25-2021 INFLUENZA A, PCR Not detected Normal Not Detected [facility] Comment on above: Result Comment: Resp iratory virus testing is performed routinely by PCR for Influenza A/B and RSV. If Influenza and RSV PCR are negative, testing for parainfluenza 1,2,3 viruses and adenovirus is routinely performed for oncology inpatients and intensive care unit patients at [facility] and is available on request on other patients by calling Laboratory Client Services at [phone]. Not Detected results do not preclude Influenza A/B or RSV infections since the adequacy of sample collection or low viral burden may impact the clinical sensitivity of this test method. Performed By: #### C OIVENTURA #### [facility] [address] [place] [id number] INFLUENZA B, PCR Not detected Normal Not Detected [facility] Comment on above: Result Comment: Resp iratory virus testing is performed routinely by PCR for Influenza A/B and RSV. If Influenza and RSV PCR are negative, testing for parainfluenza 1,2,3 viruses and adenovirus is routinely performed for oncology inpatients and intensive care unit patients at [facility] and is available on request on other patients by calling Laboratory Client Services at [phone] Not Detected results do not preclude Influenza A/B or RSV infections since the adequacy of sample collection or low viral burden may impact the clinical sensitivity of this test method. . The TaqManTM SARS-CoV-2, Flu A, Flu B Multiplex Assay is a multiplex, real-time RT-PCR assay for the detection of RNA from the SARS-CoV-2, Influenza A, and Influenza B viruses. A negative result does not preclude the possibility of SARS-CoV-2, Influenza A, or Influenza B infections, and should not be used as the sole basis for patient management decision as a negative result may be caused by very low levels of infection, collection errors, or testing errors. . This test was developed and its performance characteristics were determined by the Microbiology Laboratory, Department of Pathology, [facility], [place], [place]. It has not been cleared or approved by the US Food and Drug Administration; however, FDA clearance or approval is not currently required for clinical use. This test should not be regarded as investigational or for research purposes. Performed By: #### C OINP #### [facility] [address] [place] [address] SARS-CoV-2 (COVID-19) RNA NEPTALI+probe Ql (Unsp spec) Not detected Normal Not Detected [facility] Comment on above: Result Comment: . This assay is designed to detect the N, ORF1ab and/or S genes of SARS-CoV-2 via nucleic acid amplification. A Negative (NOT DETECTED) result does not preclude 2019-nCoV infection since the adequacy of sample collection and/or low viral burden may result in presence of viral nucleic acids below the clinical sensitivity of this test method. Negative (NOT DETECTED) result should not be used as the sole basis for treatment or other patient management decisions. Rather negative results should be combined with clinical observations, patient history, and epidemiological information to make patient management decisions. Fact sheet for providers: https://www.fda.gov/media/135771/download Fact sheet for patients: https://www.fda.gov/media/366484/download This test has received FDA Emergency Use Authorization (EUA) and has been verified by [facility] ([facility]). This test is only authorized for the duration of time that circumstances exist to justify the authorization of the emergency use of in vitro diagnostic tests for the detection of SARS-CoV-2 virus and/or diagnosis of COVID-19 infection under section 564(b)(1) of the Act, 21 U.S.C. 360bbb-3(b)(1), unless the authorization is terminated or revoked sooner. [facility] is certified under CLIA-88 as qualified to perform high complexity testing. Testing is performed in the [facility] laboratories located at [address] [place] [address]. Performed By: #### C OINP #### [place] [address] GROUP A STREP,PCRon 12-25-19 GROUP A STREP,PCR Not detected Normal Not Detected [facility] Comment on above: Result Comment: This test was performed utilizing an FDA- cleared rapid nucleic acid amplification by PCR to qualitatively detect Group A Streptococci from throat swab specimens without the need for culture confirmation of negative results. Performed By: #### G APC1 #### [place] [address] Lab Specimen Source Throat Normal [facility] Comment on above: Performed By: #### G APC1 #### [place] [address] INFLUENZA A/B, COVID 2019 PC R,SYMPTOMATICon 12-24-2021 DATE OF SYMPTOM ONSET [[id number]]? [id number] Normal [facility] Comment on above: Performed By: #### C OINP #### [place] [address] Lab Specimen Source Nasal, Nasopharyngeal Normal [facility] Comment on above: Performed By: #### C OINP #### [address] [place] [address] Provider Note - ED v3on 04-0 Provider Note - ED v3 Provider Note: Chart Review HISTORY OF PRESENTING ILLNESS CASSANDRA is a 36 year old Female and was seen by me at 24-Dec-2021 08:17. The historian is the patient. Triage Information: Most recent Vital Sign Value Date PAST MEDICAL HISTORY ALLERGIES/INTOLERANCES: Allergy Allergen: sulfa drugs Type: Drug Category Reaction: Hives/Urticaria HEALTH HISTORY: History of hypothyroidism, GERD, and PCOS. Is currently (conceived via IVF) - scheduled for on 12/29/21. Family history: no pertinent history. Social history: non-smoker. . Has a daughter and currently with a son. 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 OUTPATIENT MEDICATIONS: Home Medications Review Status for Reconciliation: Complete Med Status: Patient Currently Takes Medications Drug Name: levothyroxine 100 mcg (0.1 mg) oral tablet Instructions: 1 tab(s) orally once a day Drug Name: omeprazole Instructions: null Drug Name: aspirin 81 mg oral tablet Instructions: null Drug Name: amoxicillin 875 mg oral tablet Instructions: 1 tab(s) orally 2 times a day x 10 days. Take with food. SIGNIFICANT EVENTS: History of x1 (and 2nd planned for 12/29/21), excision of uterine polyps, and T&A (remote). Has conceived x 2 via IVF process. Has received COVID-19 vaccines and the [id number] influenza vaccine. 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 She reports she also has a mild, dry cough; has mild nasal congestion (clear nasal drainage) but reports this has been present without much change throughout her . She denies any fever/chills, body aches, sinus tenderness, abdominal pain, chest pain, wheezing/shortness of breath, rashes, urinary symptoms, vaginal bleeding, nausea/vomiting, and diarrhea. Denies any lightheadedness or dizziness; no changes in mental status. No new swelling in legs. Appetite is normal and is able to drink fluids without difficulty; denies any loss of sense of taste/smell. Reports feels like symptoms are getting a little worse since onset. Has not tried any rdkx-pjn-vjorzrk medications or home remedies for symptom management, as she is currently - scheduled for next . No known ill contacts, but is a teacher. Has received the COVID-19 vaccine and this year's flu vaccine. Is not a smoker. REVIEW OF SYSTEMS 10 systems reviewed negative with exception of history of present illness listed above PHYSICAL EXAMINATION General: Mildly ill-appearing, well nourished female; alert and oriented; in no acute distress. Sitting comfortably on exam table. Non-dyspneic. Eyes: Pupils equal, round and reactive to light. No conjunctival erythema; no scleral icterus. HENT: No frontal or maxillary sinus tenderness; + audible nasal congestion. Airway patent, TMs slightly dull and with cloudy fluid effusions bilat but no erythema, and not retracted or bulging; ear canals with mild cerumen but otherwise clear/unremarkable bilaterally. Nasal mucosa mildly injected and edematous. Oral mucosa moist. Posterior pharynx mildly injected but without vesicles or oropharyngeal exudate aside from PND. Uvula is midline. Managing oral secretions without difficulty. Neck: Supple. Mildly tender, mobile anterior cervical lymphadenopathy bilat. Trachea is midline. Respiratory: Respirations easy and unlabored, Breath sounds equal. Lungs are clear to auscultation; no wheezes, rhonchi, or rales; has good air movement throughout. Mild, non-productive cough noted only upon request. Non-dyspneic with ambulation; able to maintain SpO2. Cardiovascular: Normal rate, Regular rhythm. Normal S1S2. No m/r/g. No peripheral edema. Gastrointestinal: Gravid abdomen. Soft, non-tender. Bowel sounds normoactive. Musculoskeletal: Grossly normal; appropriate for age. Integumentary: [place], warm, dry, and intact. No rashes or skin discoloration appreciated. Good skin turgor. Neurologic: Alert and oriented, no gross deficits. Cognition and Speech: Oriented, Speech clear and coherent. Psychiatric: Cooperative, Appropriate mood & affect. MEDICAL DECISION MAKING Course: Worsening; stable. Impression/Plan: No red flags on exam today, but is currently , so will need very close monitoring. I have reviewed the COVID-19 algorithm, and counseled pt on current recommendations. Symptoms consistent with viral URI, but reviewed other potential etiologies, and strep test and nasal (more content not included)... Normal [facility] Laboratory - Chemistry and C hemistry - challengeon 12-22-2021 Glucose Ql (U) Negative [facility] Work Phone: Laboratory - Urinalysison Protein Ql (U) Negative [facility] Work Phone: Laboratory - Chemistry and C hemistry - challengeon 12-15-2021 Glucose Ql (U) Negative [facility] Work Phone: Laboratory - Urinalysison Protein Ql (U) Negative [facility] Work Phone: Laboratory - Chemistry and C hemistry - challengeon 12-08-2021 Glucose Ql (U) Negative [facility] Work Phone: Laboratory - Urinalysison Protein Ql (U) Negative [facility] Work Phone: No Panel Informationon 12-08 Group B Streptococcus Culture Group B Beta Streptococcus is not isolated. [facility] Work Phone: Laboratory - Chemistry and C hemistry - challengeon 11-24-2021 Glucose Ql (U) Negative [facility] Work Phone: Laboratory - Urinalysison Protein Ql (U) Negative [facility] Work Phone: Laboratory - Chemistry and C hemistry - challengeon 11-18-2021 Glucose Ql (U) Negative [facility] Work Phone: Laboratory - Urinalysison Protein Ql (U) Negative [facility] Work Phone: Laboratory - Chemistry and C hemistry - challengeon 11-10-2021 Glucose Ql (U) Negative [facility] Work Phone: Laboratory - Urinalysison Protein Ql (U) Negative [facility] Work Phone: Laboratory - Chemistry and C hemistry - challengeon 11-04-2021 Glucose Ql (U) Negative [facility] Work Phone: Laboratory - Urinalysison Protein Ql (U) Negative [facility] Work Phone: Blood Pressure Cuff Sizeon 0 10-24-2021 Adult depression screening assessment No [facility] Work [facility]: Fall risk assessment a) [facility] the [facility]: Tobacco use status [facility] b) No [facility] Work [facility]: Laboratory - Chemistry and C hemistry - challengeon 10-21-2021 Glucose Ql (U) Negative [facility] Work Phone: Laboratory - Urinalysison Protein Ql (U) Negative [facility] Work Phone: Quantitative serum or plasma 3 hour gestational glucose tolerance panelon 10-18-2021 Glucose tolerance 3 hours gestational panel See comment [facility] Work Phone: Comment on above: FASTING 87 Col: 09/25 02/12 0653GLUCOSE TOLERANCE TEST FOR Reference Interval GESTATIONAL DIABETES Fasting <105 mg/dL 1 hour <190 mg/dl 2 hour <165 mg/dl 3 hour <145 mg/dl 1 HR GLU 164 Col: 10/18/21 0800 2 HR GLU 124 Col: 10/18/21 0856 3 HR GLU 103 Col: 10/18/21 0958 Absolute lymphocyte counton 2021 Lymphocytes Auto (Unsp spec) [#/Vol] 2.46 10*3/uL 0.83-4.51 [facility] Work Phone: Basophil percentageon 2021 Basophils/100 WBC (Bld) 0.2 % 0-1 [facility] Work Phone: Eosinophils/100 WBC (Bld) 1.3 % 0-5 [facility] Work Phone: Neutrophils (Bld) [#/Vol] 7.7 10*3/uL 2.0-7.7 [facility] Work Phone: Neutrophils/100 WBC (Bld) 68.8 % 47-70 [facility] Work Phone: WBC (Bld) [#/Vol] 11.2 10*3/uL 4.4-11.0 [facility] Work Phone: [phone] Blood erythrocytes count (nu mber/volume)on 2021 RBC (Bld) [#/Vol] 4.04 10*6/uL 4.2-5.4 [facility] Work Phone: [phone] Blood hemoglobin measurement (mass/volume)on 2021 Hemoglobin (Bld) [Mass/Vol] 11.1 g/dL 12.0-15.0 [facility] Work Phone: Blood lymphocytes/100 leukoc yteson 2021 Lymphocytes/100 WBC (Bld) 22.0 % 19-41 [facility] Work Phone: Blood monocytes/100 leukocyt eson 2021 Monocytes/100 WBC (Bld) 7.2 % 0-10 [facility] Work Phone: Blood platelet mean volumeon 2021 Platelet mean volume (Bld) [Entitic vol] 10.1 fL 6.2-12.0 [facility] Work Phone: Determination of erythrocyte mean corpuscular volume (MCV)on 2021 MCV (RBC) [Entitic vol] 85.4 fL 81-99 [facility] Work Phone: Gestational diabetes screen 1-hour screen with 50g oral glucose loadon 2021 Glucose 1 Hr post 50 g glucose PO [Mass/Vol] 139 mg/dL 70-140 [facility] Work Phone: Hematocrit Auto (Bld) [Volum e fraction]on 2021 Hematocrit (Bld) [Volume fraction] 34.5 % 37-47 [facility] Work Phone: Laboratory - Chemistry and C hemistry - challengeon 2021 Glucose Ql (U) Negative [facility] Work Phone: Free T4 [Mass/Vol] 0.76 ng/dL 0.76-1.46 [facility] Work Phone: Laboratory - Hematology and Cell countson 2021 Erythrocyte distribution width (RBC) [Entitic vol] 48.7 fL 35.1-43.9 [facility] Work Phone: Erythrocyte distribution width (RBC) [Ratio] 15.6 % 11.6-14.6 [facility] Work Phone: Immature granulocytes/100 WBC (Bld) 0.500 % 0.0-0.9 [facility] Work Phone: Comment on above: IG% - Immature Granu locytes (promyelocytes, myelocytes and metamyelocytes) > 1% indicates that a LEFT SHIFT is Present. MCH (RBC) [Entitic mass] 27.5 pg 27.0-32.0 [facility] Work Phone: Nucleated RBC/100 WBC (Bld) [Ratio] 0 % 0-5 [facility] Work Phone: Laboratory - Urinalysison Protein Ql (U) Trace [facility] Work Phone: MCHC Auto (RBC) [Mass/Vol]on 2021 MCHC (RBC) [Mass/Vol] 32.2 g/dL 32-[address] [facility] Work Phone: No Panel Informationon 10-06 Thyroid Stimulating Hormone (TSH) 0.74 uIU/mL 0.358-3.74 [facility] Work Phone: Platelets bldon 2021 Platelets (Bld) [#/Vol] 310 10*3/uL 150-450 [facility] Work Phone: Laboratory - Chemistry and C hemistry - challengeon 09-12-2021 Free T4 [Mass/Vol] 0.73 ng/dL 0.76-1.46 [facility] Work Phone: Glucose Ql (U) Negative [facility] Work Phone: Laboratory - Urinalysison Protein Ql (U) Negative [facility] Work Phone: No Panel Informationon 09-12 Thyroid Stimulating Hormone (TSH) 1.54 uIU/mL 0.358-3.74 [facility] Work Phone: Blood Pressure Cuff Sizeon 0 04-11-2021 Fall risk assessment a) [facility] the [facility] Work [facility]: Tobacco use status CP b) No [facility] Work Phone: Blood [facility] Cuff Size Adult [facility] Work Phone: Operative Reporton 1 Operative Report [facility] [address], [place] [address] RECORD OF PROCEDURE PATIENT NAME: CASSANDRA MENDOZA DATE OF : 1985 MED REC #: [id number] PT LOCATION: OR PACU PT TYPE: OPS AGE: 35 SEX: F ADMISSION DATE: 03/04/2021 DATE OF SERVICE: 03/04/2021 SURGEON: Beatrice Queen MD ANESTHESIA: General. ESTIMATED BLOOD LOSS: 20 mL BLOOD: None. FLUID: Crystalloid. PACKS/DRAINS: None. Zurita to straight drain. SPECIAL MEDICINES: None. INSTRUMENT/NEEDLE/SPONGE COUNT: Correct at the termination of the procedure. INDICATIONS FOR PROCEDURE: The patient is a 35-year-old, morbidly obese, white female who presents for surgical therapy with a known intrauterine polyp. She also reports abnormal bleeding. Informed consent was obtained. The below procedure was performed. PREPROCEDURE DIAGNOSIS: Abnormal bleeding, intrauterine polyp. POSTPROCEDURE DIAGNOSIS: Abnormal bleeding, intrauterine polyp. NAME OF PROCEDURE: Hysteroscopic polypectomy. FINDINGS: At the time of hysteroscopy, the patient had multiple intrauterine polyps. They were removed with MyoSure LITE device. At the termination of the procedure, her uterine cavity appeared normal. DESCRIPTION OF PROCEDURE: The patient was taken to the operating room and placed in the supine position where general anesthesia was delivered. Prepped and draped in usual sterile fashion. Zurita was placed in her bladder. Weighted speculum was placed in her vagina. Cervix was visualized, clamped, dilated sufficiently to accommodate a 5-mm operative hysteroscope. Using MyoSure LITE, the polyps were removed. With this done, all instruments were removed from the patient. She was awakened and taken to the recovery room in stable condition. Beatrice Queen MD [facility]/[id number] SSI File#: [id number] CC: Beatrice Queen MD [facility] Final Surgical Pathology Rep [facility] 12-28-2020 Final Surgical Pathology Report . Pathology Reports Accession: Collected Date/Time: Received Date/Time: Pathologist: [id number] 12/24/2020 09:01 EDT 12/27/2020 14:57 EDT DO MARILEE BROWN Final Surgical Pathology Report DIAGNOSIS: ESOPHAGEAL BIOPSY -- SQUAMOUS MUCOSA WITH NONSPECIFIC CHANGES. Negative for eosinophilic esophagitis. CLINICAL INFORMATION: DYSPHAGIA SPECIMEN: A ESOPHAGEAL BIOPSY - R/O EOSINOPHILIC ESOPHAGITIS GROSS DESCRIPTION: A. Received in formalin, labeled with the patients name, Case #[id number], and esophagus biopsy are 3 robertson tissue fragments ranging from less than 0.1 to 0.3 cm. TS -1. Dictated by JOSE JENKINS MICROSCOPIC DESCRIPTION: Slides reviewed. Electronically Signed by Pathology Report verified by [facility] Electronically signed by MARILEE BROWN DO Sign out Date: 12/28/2020 15:42 Performing Lab: [facility], [address] [place] [address] ([place]) Comment on above: Performed By: #### S PFR #### [facility] [address] [place] [address] CORONAVIRUS PCR - [facility] 12-23-2020 COVID-19 Negative Normal NORMAL: NEGATIVE [facility] Comment on above: Performed By: #### 2 [id number] #### [facility],[address] [place], [place] [id number] SEND TO ? YES Normal [facility] Comment on above: Result Comment: RESU LTS FAXED TO INFECTION CONTROL. SARS-CoV-2 THIS TEST IS BEING USED UNDER THE FDA EUA PROCEDURE. THIS ASSAY HAS BEEN VALIDATED IN THE [facility] FOR USE WITH NASOPHARYNGEAL SPECIMENS IN [facility]. INTERPRETIVE DATA LABORATORY TEST RESULTS SHOULD ALWAYS BE CONSIDERED IN THE CONTEXT OF CLINICAL OBSERVATIONS AND EPIDEMIOLOGICAL DATA IN MAKING FINAL DIAGNOSIS AND PATIENT MANAGEMENT DECISIONS. PATIENT MANAGEMENT SHOULD FOLLOW CURRENT CDC GUIDELINES. A POSITIVE TEST RESULT FOR COVID-19 INDICATES THAT RNA FROM SARS-CoV-2 WAS DETECTED, AND THE PATIENT IS INFECTED WITH THE VIRUS AND PRESUMED TO BE CONTAGIOUS. A NEGATIVE TEST RESULT FOR THIS TEST MEANS THAT SARS-CoV-2 RNA WAS NOT PRESENT IN THE SPECIMEN ABOVE THE LIMIT OF DETECTION. HOWEVER, A NEGATVIE RESULT DOES NOT RULE OUT COVID-19 AND SHOULD NOT BE USED THE SOLE BASIS FOR TREATMENT OR PATIENT MANAGEMENT DECISIONS. A NEGATIVE RESULT DOES NOT EXCLUDE THE POSSIBILITY OF COVID-19. WHEN DIAGNOSTIC TESTING IS NEGATIVE, THE POSSIBLILTY OF A FALSE NEGATIVE RESULT SHOULD BE CONSIDERED IN THE CONTEXT OF A PATIENT'S RECENT EXPOSURES AND THE PRESENCE OF CLINICAL SIGNS AND SYMPTOMS CONSISTENT WITH COVID-19. THE POSSIBILITY OF A FALSE NEGATIVE RESULT SHOULD ESPECIALLY BE CONSIDERED IF THE PATIENT'S RECENT EXPOSURES OR CLINICAL PRESENTATION INDICATE THAT COVID-19 IS LIKELY, AND DIAGNOSTIC TESTS FOR OTHER CAUSES OF ILLNESS (e.g., OTHER RESPIRATORY ILLNESS) ARE NEGATIVE. IF COVID-19 IS STILL SUSPECTED BASED ON EXPOSURE HISTORY TOGETHER WITH OTHER CLINICAL FINDINGS, RE-TESTED SHOULD BE CONSIDERED BY HEALTHCARE PROVIDERS IN CONSULTATION WITH PUBLIC HEALTH AUTHORITIES. Performed By: #### 2 [id number] #### [facility],1 [facility] [address] Thyroidon 2019 TSH Qn 2.66 {mIU/L} See Below [facility] Work Phone: Comment on above: Reference Range: 0.4 4 - 3.98 TSH testing is performed using different testing methodology at [facility] than at other [facility]. Direct result comparisons should only be made within the same method. Progesteroneon 02-09-2018 Progesterone 1.1 ng/mL Normal [facility] Comment on above: Result Comment: *Fem ales-Ovulatory*Follicular: 0.1 - 2.0Periovulatory: 0.4 - 4.5Mid Luteal: 5.2 - 22.7Luteal: 1.4 - 16.6* Females*1st Trimester (4-12 weeks gestation): 6.6 - 40.32nd Trimester (13-24 weeks gestation): 9.7 - 62.33rd Trimester (25-36 weeks gestation): 24.5 - 334.0Post Menopausal Females: 0.2 - 1.0Normal Males: 0.2 - 1.5 Performed By: #### T SH4, QWNT ####[place] [address] hCG Quantitativeon 8 hCG Quantitative < 2 Normal < 3 [facility] Comment on above: Performed By: #### T CHAS4, QWNT ####[place] [address] hCG Quantitativeon 8 hCG Quantitative <2 Normal < 3 [facility] Comment on above: Performed By: #### T SH4, QWNT ####[place] [address] Thyroid Stim. Hormoneon Thyroid Stim. Hormone 1.150 uU/mL Normal 0.465- 4.68 0 [facility] Comment on above: Performed By: #### Q WNT ####[place] [id number] hCG Quantitativeon 8 hCG Quantitative <2 Normal < [address] [facility] Comment on above: Performed By: #### Q WNT ####[address] [address] hCG Quantitativeon 8 hCG Quantitative <2 Normal < 3 [facility] Comment on above: Performed By: #### Q WNT ####[address] [address] hCG Quantitativeon 8 hCG Quantitative 7 m[IU]/mL Abnormal < [address] [facility] Comment on above: Performed By: #### Q WNT ####[place] [address] hCG Qual Pregon 11-05-2017 hCG Qual Preg QUESTIONABLE Abnormal [facility] Comment on above: Result Comment: REF RANGE:Negative .... < 3Questionable Rpt 48-72 HrPositive ..... > 10 Performed By: #### Q WNT ####[place] [address] hCG Quantitativeon 8 hCG Quantitative 57 m[IU]/mL Abnormal < 3 [facility] Comment on above: Performed By: #### Q WNT ####[place] [address] hCG Quantitativeon 8 hCG Quantitative 182 m[IU]/mL Abnormal < 3 [facility] Comment on above: Performed By: #### Q WNT ####[place] [address] Thyroid Stim. Hormoneon 09-25 Thyroid Stim. Hormone 3.140 uU/mL Normal 0.465- 4.[address] [facility] Comment on above: Performed By: #### Q WNT ####[place] [address] hCG Quantitativeon 8 hCG Quantitative 71 m[IU]/mL Abnormal < 3 [facility] Comment on above: Performed By: #### Q WNT ####[place] [address] Hepatic/Renal Panelon 2017 Alanine aminotransferase (ALT) 35 U/L Normal 13-69 [facility] Comment on above: Performed By: #### Q WNT ####[address] [place] [address] Calcium 10.0 mg/dL Normal 8.4-10.2 [facility] Comment on above: Performed By: #### Q WNT ####[address] [place] [address] Alkaline phosphatase (ALP) 86 U/L Normal 38-126 [facility] Comment on above: Performed By: #### Q WNT ####[address] [place] [address] Anion gap 10 mmol/L Normal [facility] Comment on above: Performed By: #### Q WNT ####[address] [place] [address] Aspartate aminotransferase (AST) 28 U/L Normal 15-46 [facility] Comment on above: Performed By: #### Q WNT ####[address] [place] [address] Bilirubin (direct) 0.0 mg/dL Normal 0.0-0.3 [facility] Comment on above: Performed By: #### Q WNT ####[address] [place] [address] Bilirubin (total) 0.5 mg/dL Normal 0.2-1.3 [facility] Comment on above: Performed By: #### Q WNT ####[address] [place] [address] CO2 29 mmol/L Normal 22-30 [facility] Comment on above: Performed By: #### Q WNT ####[address] [place] [address] Creatinine 0.72 mg/dL Normal 0.52-1.25 [facility] Comment on above: Performed By: #### Q WNT ####[address] [place] [address] eGFR (black) mL/min/{1.73_m2} Normal >60 [facility] Comment on above: Performed By: #### Q WNT ####[place] [address] [place] [address] eGFR (non-black) mL/min/{1.73_m2} Normal >60 [facility] Comment on above: Result Comment: Sour ce- MDRD equation with creatinine calibration to IDMS(NKDEP)eGFR not recommended for drug dose adjustment Performed By: #### Q WNT ####[place] [address] [place] [address] Glucose mass conc 88 mg/dL Normal 70-100 [facility] Comment on above: Performed By: #### Q WNT ####[place] [address] [place] [address] Phosphate 3.4 mg/dL Normal 2.5-4.5 [facility] Comment on above: Performed By: #### Q WNT ####[place] [address] [place] [address] Protein 7.2 g/dL Normal 6.3-8.2 [facility] Comment on above: Performed By: #### Q WNT ####[place] [address] [place] [address] Urea nitrogen 14 mg/dL Normal 7-20 [facility] Comment on above: Performed By: #### Q WNT ####[place] [address] [place] [address] Potassium molar conc 4.8 mmol/L Normal 3.5-5.1 [facility] Comment on above: Performed By: #### Q WNT ####[place] [address] [place] [address] Sodium 142 mmol/L Normal 137-145 [facility] Comment on above: Performed By: #### Q WNT ####[place] [address] [place] [address] Albumin 4.3 g/dL Normal 3.5-5.0 [facility] Comment on above: Performed By: #### Q WNT ####[place] [address] [place] [address] Chloride 103 mmol/L Normal 98-107 [facility] Comment on above: Performed By: #### Q WNT ####[address] [place] [address] hCG Quantitativeon 7 hCG Quantitative <2 Normal < 3 [facility] Comment on above: Performed By: #### Q WNT ####[address] [place] [address] hCG Quantitativeon 7 hCG Quantitative < 1 Normal < 3 [facility] Comment on above: Performed By: #### Q WNT ####[address] [place] [address] hCG Quantitativeon 7 hCG Quantitative < 1 Normal < 3 [facility] Comment on above: Performed By: #### Q WNT ####[address] [place] [address] Thyroid Stim. Hormoneon 06-25 Thyroid Stim. Hormone 1.470 uU/mL Normal 0.358- 3.74 0 [facility] Comment on above: Performed By: #### T SH4 ####[address] [place] [address] Thyroid Stim. Hormoneon 04-24 Thyroid Stim. Hormone 2.600 uU/mL Normal 0.358- 3.74 0 [facility] Comment on above: Performed By: #### T SH4 ####[address] [place] [address] hCG Quantitativeon 7 hCG Quantitative 989 m[IU]/mL Abnormal < 3 [facility] Comment on above: Performed By: #### Q WNT ####[address] [place] [address] Thyroid Stim. Hormoneon Thyroid Stim. Hormone 3.600 uU/mL Normal 0.358- 3.74 0 [facility] Comment on above: Performed By: #### T SH4, QWNT ####[address] [place] [address] hCG Quantitativeon 7 hCG Quantitative 469 m[IU]/mL Abnormal < 3 [facility] Comment on above: Performed By: #### T SH4, QWNT ####[address] [address] Estradiolon 03-16-2017 Estradiol 61.1 pg/mL Normal [facility] Comment on above: Result Comment: Fema les:Follicular Phase ..... 21.4-164.8Mid-cycle Phase ...... 49.9-367.2Luteal Phase ......... 40.2-259.0Post-menopausal ...... < 11.0-58.3Males: < 11.0- 52.5 Performed By: #### E STR3 ####[place] [address] [place] [address] hCG Quantitativeon 7 hCG Quantitative < 1 Normal < [address] [facility] Comment on above: Performed By: #### Q WNT ####[address] [address] Vital Signs Date Time Vital Sign Value Performing Clinician Facility 03-11-2025 13:20-0400 Body height 160.[address] Janice Lloyd DO Work Phone: [facility] 03-11-2025 13:20-0400 Body mass index (BMI) [Ratio] 48.2 kg/m2 Dr. Janice Lloyd DO Work Phone: [facility] 03-11-2025 13:20-0400 Body weight 123.[address] Janice Lloyd DO Work Phone: [facility] 03-11-2025 13:20-0400 Diastolic blood pressure 84 mm[Hg] Dr. Janice Lloyd DO Work Phone: [facility] 03-11-2025 13:20-0400 Diastolic blood pressure 88 mm[Hg] Dr. Janice Lloyd DO Work Phone: [facility] 03-11-2025 13:20-0400 Systolic blood pressure 146 mm[Hg] Dr. Janice Lloyd DO Work Phone: [facility] 03-11-2025 13:20-0400 Systolic blood pressure 133 mm[Hg] Dr. Janice Lloyd DO Work Phone: [facility] 12-31-2024 09:28-0400 Body height 160 cm Marcel Vuong [employer] COMM[employer]ITIES INSPECTOR-ASSET RECOVERY SPECIALIST Work Phone: [facility] 12-31-2024 09:28-0400 Body mass index (BMI) [Ratio] 46.06 kg/m2 Marcel Vuong AGRICULTURAL COMMODITIES INSPECTOR-ASSET RECOVERY SPECIALIST Work Phone: [facility] 12-31-2024 09:28-0400 Body temperature 98.6 [degF] Marcel Vuong AGRICULTURAL COMMODITIES INSPECTOR-ASSET RECOVERY SPECIALIST Work Phone: [facility] 12-31-2024 09:28-0400 Body weight 117.94 kg Marcel Vuong AGRICULTURAL COMMODITIES INSPECTOR-ASSET RECOVERY SPECIALIST Work Phone: [facility] 12-31-2024 09:28-0400 Diastolic blood pressure 84 mm[Hg] Marcel Vuong AGRICULTURAL COMMODITIES INSPECTOR-ASSET RECOVERY SPECIALIST Work Phone: [facility] 12-31-2024 09:28-0400 Heart rate 76 /min Marcel Vuong AGRICULTURAL COMMODITIES INSPECTOR-ASSET RECOVERY SPECIALIST Work Phone: [facility] 12-31-2024 09:28-0400 Respiratory rate 14 /min Marcel Vuong AGRICULTURAL COMMODITIES INSPECTOR-ASSET RECOVERY SPECIALIST Work Phone: [facility] 12-31-2024 09:28-0400 SaO2% (BldA) [Mass fraction] 98 % Marcel Vuong AGRICULTURAL COMMODITIES INSPECTOR-ASSET RECOVERY SPECIALIST Work Phone: [facility] 12-31-2024 09:28-0400 Systolic blood pressure 138 mm[Hg] Marcel Vuong AGRICULTURAL COMMODITIES INSPECTOR-ASSET RECOVERY SPECIALIST Work Phone: [facility] 09-22-2024 07:56-0500 Body height 160 cm Janice Lloyd DO Work Phone: [facility] 09-22-2024 07:56-0500 Body mass index (BMI) [Ratio] 46.06 kg/m2 Janice Lloyd DO Work Phone: [facility] 09-22-2024 07:56-0500 Body weight 117.94 kg Janice Oberhauser DO Work Phone: [facility] 09-22-2024 07:56-0500 Diastolic blood pressure 82 mm[Hg] Janice Oberhauser DO Work Phone: [facility] 09-22-2024 07:56-0500 Heart rate 77 /min Janice Oberhauser DO Work Phone: [facility] 09-22-2024 07:56-0500 Systolic blood pressure 125 mm[Hg] Janice Oberhauser DO Work Phone: [facility] 06-05-2024 11:01-0400 Body height 160 cm Ruddy Sarah PA-C Work Phone: [facility] 06-05-2024 11:01-0400 Body mass index (BMI) [Ratio] 47.83 kg/m2 Ruddy Sarah PA-C Work Phone: [facility] 06-05-2024 11:01-0400 Body temperature 98.4 [degF] Ruddy Sarah PA-C Work Phone: [facility] 06-05-2024 11:01-0400 Body weight 122.47 kg Ruddy Sarah PA-C Work Phone: [facility] 06-05-2024 11:01-0400 Diastolic blood pressure 72 mm[Hg] Ruddy Sarah PA-C Work Phone: [facility] 06-05-2024 11:01-0400 Heart rate 91 /min Ruddy Sarah PA-C Work Phone: [facility] 06-05-2024 11:01-0400 Respiratory rate 14 /min Ruddy Sarah PA-C Work Phone: [facility] 06-05-2024 11:01-0400 SaO2% (BldA) [Mass fraction] 96 % Ruddy Smith PA-C Work Phone: [facility] 06-05-2024 11:01-0400 Systolic blood pressure 122 mm[Hg] Ruddy Smith PA-C Work Phone: [facility] 03-10-2024 10:33-0400 Body height 162.6 cm Janice Lloyd DO Work Phone: [facility] 03-10-2024 10:33-0400 Body mass index (BMI) [Ratio] 47.03 kg/m2 Janice Oberjyotier DO Work Phone: [facility] 03-10-2024 10:33-0400 Body weight 124.29 kg Janice Lloyd DO Work Phone: [facility] 03-10-2024 10:33-0400 Diastolic blood pressure 74 mm[Hg] Janice Lloyd DO Work Phone: [facility] 03-10-2024 10:33-0400 Heart rate 67 /min Janice Lloyd DO Work Phone: [facility] 03-10-2024 10:33-0400 Systolic blood pressure 136 mm[Hg] Janice Lloyd DO Work Phone: [facility] 10-30-2023 11:27-0500 Body height 160.[address] Janice Lloyd Work Phone: [facility] 10-30-2023 11:27-0500 Body weight 122.[address] Janice Lloyd Work Phone: [facility] 09-10-2023 15:39-0500 Body height 162.6 cm Janice Lloyd DO Work Phone: [facility] 09-10-2023 15:39-0500 Body mass index (BMI) [Ratio] 46.35 kg/m2 Janice Lloyd DO Work Phone: [facility] 09-10-2023 15:39-0500 Body weight 122.47 kg Janice Lloyd DO Work Phone: [facility] 09-10-2023 15:39-0500 Diastolic blood pressure 76 mm[Hg] Janice Lloyd DO Work Phone: [facility] 09-10-2023 15:39-0500 Heart rate 55 /min Janice Lloyd DO Work Phone: [facility] 09-10-2023 15:39-0500 Systolic blood pressure 126 mm[Hg] Janice Lloyd DO Work Phone: [facility] 09-03-2023 14:26-0500 Body height 160.[address] Janice Lloyd Work Phone: [facility] 09-03-2023 14:18-0500 Body mass index (BMI) [Ratio] 47.7 kg/m2 Dr. Janice Lloyd Work Phone: [facility] 09-03-2023 14:18-0500 Body weight 122.[address] Janice Lloyd Work Phone: [facility] 09-03-2023 14:18-0500 Diastolic blood pressure 82 mm[Hg] Dr. Janice Lloyd Work Phone: [facility] 09-03-2023 14:18-0500 Systolic blood pressure 138 mm[Hg] Dr. Janice Lloyd Work Phone: [facility] 09-03-2023 09:00-0500 Body weight 121.[address] Janice Lloyd Work Phone: [facility] 07-25-2023 00:08-0400 Body weight 126.[address] Janice Lloyd Work Phone: [facility] 07-10-2023 15:00-0400 Body height 160.[address] Janice Lloyd Work Phone: [facility] 07-10-2023 15:00-0400 Body weight 126.[address] Janice Lloyd Work Phone: [facility] 06-14-2023 14:58-0400 Body mass index (BMI) [Ratio] 49.2 kg/m2 Dr. Janice Lloyd Work Phone: [facility] 06-14-2023 14:58-0400 Body weight 126.[address] Janice Lloyd Work Phone: [facility] 06-14-2023 14:58-0400 Diastolic blood pressure 98 mm[Hg] Dr. Janice Lloyd Work Phone: [facility] 06-14-2023 14:58-0400 Systolic blood pressure 150 mm[Hg] Dr. Janice Lloyd Work Phone: [facility] 03-12-2023 10:29-0400 Body height 162.6 cm Janice Lloyd DO Work Phone: [facility] 03-12-2023 10:29-0400 Body mass index (BMI) [Ratio] 46.17 kg/m2 Janice Lloyd DO Work Phone: [facility] 03-12-2023 10:29-0400 Body weight 122.02 kg Janice Lloyd DO Work Phone: [facility] 03-12-2023 10:29-0400 Diastolic blood pressure 76 mm[Hg] Janice Lloyd DO Work Phone: [facility] 03-12-2023 10:29-0400 Heart rate 63 /min Janice Lloyd DO Work Phone: [facility] 03-12-2023 10:29-0400 Systolic blood pressure 130 mm[Hg] Janice Lloyd DO Work Phone: [facility] 03-01-2023 11:42-0400 Body height 160.[address] Janice Lloyd Work Phone: [facility] 03-01-2023 11:42-0400 Body mass index (BMI) [Ratio] 47.9 kg/m2 Dr. Janice Lloyd Work Phone: [facility] 03-01-2023 11:42-0400 Body weight 122.[address] Janice Lloyd Work Phone: [facility] 03-01-2023 11:42-0400 Diastolic blood pressure 88 mm[Hg] Dr. Janice Lloyd Work Phone: [facility] 03-01-2023 11:42-0400 Systolic blood pressure 138 mm[Hg] Dr. Janice Lloyd Work Phone: [facility] 09-11-2022 15:39-0500 Body height 164.01 cm Janice Lloyd Work Phone: [facility] Work Phone: 09-11-2022 15:39-0500 Body mass index (BMI) [Ratio] 44.01 kg/m2 Janice Lloyd Work Phone: [facility] Work Phone: 09-11-2022 15:39-0500 Body surface area Derived from formula 2.2 m2 Janice Lloyd Work Phone: [facility] Work Phone: 09-11-2022 15:39-0500 Body weight 118.39 kg Janice Lloyd Work Phone: [facility] Work Phone: 09-11-2022 15:39-0500 Diastolic blood pressure 71 mm[Hg] Janice Lloyd Work Phone: [facility] Work Phone: 09-11-2022 15:39-0500 Heart rate 55 /min Janice L Oberhauser Work Phone: [facility] Work Phone: 09-11-2022 15:39-0500 Systolic blood pressure 116 mm[Hg] Janice L Oberhauser Work Phone: [facility] Work Phone: 03-20-2022 10:05-0400 Body height 164.01 cm Janice L Oberhauser Work Phone: [facility] Work Phone: 03-20-2022 10:05-0400 Body mass index (BMI) [Ratio] 42.16 kg/m2 Janice L Oberhauser Work Phone: [facility] Work Phone: 03-20-2022 10:05-0400 Body surface area Derived from formula 2.16 m2 Janice L Oberhauser Work Phone: [facility] Work Phone: 03-20-2022 10:05-0400 Body weight 113.4 kg Janice L Oberhauser Work Phone: [facility] Work Phone: 03-20-2022 10:05-0400 Diastolic blood pressure 82 mm[Hg] Janice L Oberhauser Work Phone: [facility] Work Phone: 03-20-2022 10:05-0400 Heart rate 68 /min Janice L Oberhauser Work Phone: [facility] Work Phone: 03-20-2022 10:05-0400 Systolic blood pressure 118 mm[Hg] Janice Lloyd [facility] Phone: [facility] Work Phone: 02-28-2022 13:01-0400 Body height 160.[address] Janice Lloyd Work Phone: [facility] Work Phone: 02-28-2022 13:01-0400 Body mass index (BMI) [Ratio] 43.4 kg/m2 Dr. Janice Lloyd Work Phone: [facility] Work Phone: 02-28-2022 13:01-0400 Body weight 111.[address] Janice Lloyd Work Phone: [facility] Work Phone: 02-28-2022 13:01-0400 Diastolic blood pressure 76 mm[Hg] Dr. Janice Lloyd Work Phone: [facility] Work Phone: 02-28-2022 13:01-0400 Systolic blood pressure 118 mm[Hg] Dr. Janice Lloyd Work Phone: [facility] Work Phone: 02-02-2022 11:21-0400 Body height 160 cm Janice Lloyd Other Phone: [facility] 02-02-2022 11:21-0400 Body temperature 98.24 [degF] Janice Lloyd Other Phone: [facility] 02-02-2022 11:21-0400 Diastolic blood pressure 75 mm[Hg] Janice Lloyd Other Phone: [facility] 02-02-2022 11:21-0400 Heart rate 65 /min Janice Lloyd Other Phone: [facility] 02-02-2022 11:21-0400 Respiratory rate 16 /min Janice Lloyd Other Phone: [facility] 02-02-2022 11:21-0400 SaO2% (BldA) [Mass fraction] 97 % Janice Lloyd Other Phone: [facility] 02-02-2022 11:21-0400 Systolic blood pressure 113 mm[Hg] Janice Lloyd Other Phone: [facility] 01-13-2022 13:13-0400 Body mass index (BMI) [Ratio] 44.4 kg/m2 Dr. Janice Lloyd Work Phone: [facility] Work Phone: 01-13-2022 13:13-0400 Body weight 113.[address] Janice Lloyd Work Phone: [facility] Work Phone: 01-13-2022 13:13-0400 Diastolic blood pressure 79 mm[Hg] Dr. Janice Lloyd Work Phone: [facility] Work Phone: 01-13-2022 13:13-0400 Systolic blood pressure 119 mm[Hg] Dr. Janice Lloyd Work Phone: [facility] Work Phone: 12-31-2021 14:33-0400 Body temperature 97.8 [degF] Dr. Janice Lloyd Work Phone: [facility] Work Phone: 12-31-2021 14:33-0400 Diastolic blood pressure 68 mm[Hg] Dr. Janice Lloyd Work Phone: [facility] Work Phone: 12-31-2021 14:33-0400 Heart rate 84 /min Dr. Janice Lloyd Work Phone: [facility] Work Phone: 12-31-2021 14:33-0400 Respiratory rate 20 /min Dr. Janice Lloyd Work Phone: [facility] Work Phone: 12-31-2021 14:33-0400 SaO2% (BldA) [Mass fraction] 96 % Dr. Janice Lloyd Work Phone: [facility] Work Phone: 12-31-2021 14:33-0400 Systolic blood pressure 135 mm[Hg] Dr. Janice Lloyd Work Phone: [facility] Work Phone: 12-29-2021 05:32-0400 Body mass index (BMI) [Ratio] 50.8 kg/m2 Dr. Janice Lloyd Work Phone: [facility] Work Phone: 12-29-2021 05:32-0400 Body weight [address] Janice Lloyd Work Phone: [facility] Work Phone: 12-24-2021 10:20-0400 Body height 160 cm Janice Lloyd Other Phone: [facility] 12-24-2021 10:20-0400 Body temperature 98.24 [degF] Janice Lloyd Other Phone: [facility] 12-24-2021 10:20-0400 Diastolic blood pressure 84 mm[Hg] Janice Lloyd Other Phone: [facility] 12-24-2021 10:20-0400 Heart rate 93 /min Janice Lloyd Other Phone: [facility] 12-24-2021 10:20-0400 Respiratory rate 16 /min Janice Lloyd Other Phone: [facility] 12-24-2021 10:20-0400 SaO2% (BldA) [Mass fraction] 96 % Janice Lloyd Other Phone: [facility] 12-24-2021 10:20-0400 Systolic blood pressure 142 mm[Hg] Janice Lloyd Other Phone: [facility] 12-22-2021 08:38-0400 Body mass index (BMI) [Ratio] 48.6 kg/m2 Dr. Janice Lloyd Work Phone: [facility] Work Phone: 12-22-2021 08:38-0400 Body weight 124.[address] Janice Lloyd Work Phone: [facility] Work Phone: 12-22-2021 08:38-0400 Diastolic blood pressure 84 mm[Hg] Dr. Janice Lloyd Work Phone: [facility] Work Phone: 12-22-2021 08:38-0400 Systolic blood pressure 120 mm[Hg] Dr. Janice Lloyd Work Phone: [facility] Work Phone: 12-15-2021 15:40-0400 Body mass index (BMI) [Ratio] 48.9 kg/m2 Dr. Janice Lloyd Work Phone: [facility] Work Phone: 12-15-2021 15:40-0400 Body weight 125.[address] Janice Lloyd Work Phone: [facility] Work Phone: 12-15-2021 15:40-0400 Diastolic blood pressure 66 mm[Hg] Dr. Janice Lloyd Work Phone: [facility] Work Phone: 12-15-2021 15:40-0400 Systolic blood pressure 102 mm[Hg] Dr. Janice Lloyd Work Phone: [facility] Work Phone: 12-08-2021 15:19-0400 Body height 160.[address] Janice Lloyd Work Phone: [facility] Work Phone: 12-08-2021 15:19-0400 Body mass index (BMI) [Ratio] 48.3 kg/m2 Dr. Janice Lloyd Work Phone: [facility] Work Phone: 12-08-2021 15:19-0400 Body weight 123.[address] Janice Lloyd Work Phone: [facility] Work Phone: 12-08-2021 15:19-0400 Diastolic blood pressure 88 mm[Hg] Dr. Janice Lloyd Work Phone: [facility] Work Phone: 12-08-2021 15:19-0400 Systolic blood pressure 138 mm[Hg] Dr. Janice Lloyd Work Phone: [facility] Work Phone: 12-01-2021 14:48-0500 Body mass index (BMI) [Ratio] 49.2 kg/m2 Dr. Janice Lloyd Work Phone: [facility] Work Phone: 12-01-2021 14:48-0500 Body weight 126.[address] Janice Lloyd Work Phone: [facility] Work Phone: 11-24-2021 14:14-0500 Body mass index (BMI) [Ratio] 48.1 kg/m2 Dr. Janice Lloyd Work Phone: [facility] Work Phone: 11-24-2021 14:14-0500 Body weight 123.[address] Janice Lloyd Work Phone: [facility] Work Phone: 11-24-2021 14:14-0500 Diastolic blood pressure 70 mm[Hg] Dr. Janice Lloyd Work Phone: [facility] Work Phone: 11-24-2021 14:14-0500 Systolic blood pressure 112 mm[Hg] Dr. Janice Lloyd Work Phone: [facility] Work Phone: 11-18-2021 14:51-0500 Body mass index (BMI) [Ratio] 48.5 kg/m2 Dr. Janice Lloyd Work Phone: [facility] Work Phone: 11-18-2021 14:51-0500 Body weight 124.[address] Janice Lloyd Work Phone: [facility] Work Phone: 11-18-2021 14:50-0500 Diastolic blood pressure 77 mm[Hg] Dr. Janice Lloyd Work Phone: [facility] Work Phone: 11-18-2021 14:50-0500 Systolic blood pressure 118 mm[Hg] Dr. Janice Lloyd Work Phone: [facility] Work Phone: 11-10-2021 14:06-0500 Body mass index (BMI) [Ratio] 48.4 kg/m2 Dr. Janice Lloyd Work Phone: [facility] Work Phone: 11-10-2021 14:06-0500 Body weight 123.[address] Janice Lloyd Work Phone: [facility] Work Phone: 11-10-2021 14:06-0500 Diastolic blood pressure 86 mm[Hg] Dr. Janice Lloyd Work Phone: [facility] Work Phone: 11-10-2021 14:06-0500 Systolic blood pressure 134 mm[Hg] Dr. Janice Lloyd Work Phone: [facility] Work Phone: 11-04-2021 14:32-0500 Body mass index (BMI) [Ratio] 48.3 kg/m2 Dr. Janice Lloyd Work Phone: [facility] Work Phone: 11-04-2021 14:32-0500 Body weight 123.[address] Janice Lloyd Work Phone: [facility] Work Phone: 11-04-2021 14:32-0500 Diastolic blood pressure 84 mm[Hg] Dr. Janice Lloyd Work Phone: [facility] Work Phone: 11-04-2021 14:32-0500 Systolic blood pressure 138 mm[Hg] Dr. Janice Lloyd Work Phone: [facility] Work Phone: 10-24-2021 15:21-0500 Body height 164.01 cm Janice Lloyd Work Phone: [facility] Work Phone: 10-24-2021 15:21-0500 Body mass index (BMI) [Ratio] 46.88 kg/m2 Janice Lloyd Work Phone: [facility] Work Phone: 10-24-2021 15:21-0500 Body surface area Derived from formula 2.26 m2 Janice Lloyd Work Phone: [facility] Work Phone: 10-24-2021 15:21-0500 Body temperature 98.2 [degF] Janice Lloyd Work Phone: [facility] Work Phone: 10-24-2021 15:21-0500 Body weight 126.1 kg Janice Lloyd Work Phone: [facility] Work Phone: 10-24-2021 15:21-0500 Diastolic blood pressure 77 mm[Hg] Janice Lloyd Work Phone: [facility] Work Phone: 10-24-2021 15:21-0500 Heart rate 98 /min Janice Lloyd Work Phone: [facility] Work Phone: 10-24-2021 15:21-0500 Systolic blood pressure 125 mm[Hg] Janice Lloyd Work Phone: [facility] Work Phone: 10-21-2021 14:31-0500 Body mass index (BMI) [Ratio] 48.4 kg/m2 Dr. Janice Lloyd Work Phone: [facility] Work Phone: 10-21-2021 14:31-0500 Body weight 124.[address] Janice Lloyd Work Phone: [facility] Work Phone: 10-21-2021 14:31-0500 Diastolic blood pressure 80 mm[Hg] Dr. Janice Lloyd Work Phone: [facility] Work Phone: 10-21-2021 14:31-0500 Systolic blood pressure 138 mm[Hg] Dr. Janice Lloyd Work Phone: [facility] Work Phone: 2021 14:10-0500 Body mass index (BMI) [Ratio] 48.2 kg/m2 Dr. Janice Lloyd Work Phone: [facility] Work Phone: 2021 14:10-0500 Body weight 123.[address] Janice Lloyd Work Phone: [facility] Work Phone: 2021 14:10-0500 Diastolic blood pressure 88 mm[Hg] Dr. Janice Lloyd Work Phone: [facility] Work Phone: 2021 14:10-0500 Systolic blood pressure 138 mm[Hg] Dr. Janice Lloyd Work Phone: [facility] Work Phone: 09-12-2021 07:27-0500 Body mass index (BMI) [Ratio] 47.2 kg/m2 Dr. Janice Lloyd Work Phone: [facility] Work Phone: 09-12-2021 07:27-0500 Body weight 121.[address] Janice Lloyd Work Phone: [facility] Work Phone: 09-12-2021 07:27-0500 Diastolic blood pressure 88 mm[Hg] Dr. Janice Lloyd Work Phone: [facility] Work Phone: 09-12-2021 07:27-0500 Systolic blood pressure 134 mm[Hg] Dr. Janice Lloyd Work Phone: [facility] Work Phone: 04-11-2021 08:47-0400 Body height 164.01 cm Janice Lloyd Work Phone: [facility] Work Phone: 04-11-2021 08:47-0400 Body mass index (BMI) [Ratio] 45.53 kg/m2 Janice L Oberhauser Work Phone: [facility] Work Phone: 04-11-2021 08:47-0400 Body surface area Derived from formula 2.24 m2 Janice L Oberhauser Work Phone: [facility] Work Phone: 04-11-2021 08:47-0400 Body temperature 97.3 [degF] Janice L Oberhauser Work Phone: [facility] Work Phone: 04-11-2021 08:47-0400 Body weight 122.47 kg Janice L Oberhauser Work Phone: [facility] Work Phone: 04-11-2021 08:47-0400 Diastolic blood pressure 75 mm[Hg] Janice L Oberhauser Work Phone: [facility] Work Phone: 04-11-2021 08:47-0400 Heart rate 71 /min Janice L Oberhauser Work Phone: [facility] Work Phone: 04-11-2021 08:47-0400 Systolic blood pressure 126 mm[Hg] Janice L Oberhauser Work Phone: [facility] Work Phone: 2019 17:13-0500 BMI (Body Mass Index) 46.04 kg/m2 Janice Oberhauser [facility] [place] [facility] Work Phone: 2019 17:13-0500 Body weight 123.83 kg Janice Oberhauser [facility] Work Phone: 2019 17:13-0500 BP Diastolic 80 mm[Hg] Janice Lloyd [facility] Work Phone: 2019 17:13-0500 BP Systolic 118 mm[Hg] Janice Lloyd [facility] Work Phone: 2019 17:13-0500 BSA (Body Surface Area) 2.25 m2 Janicejaime Lloyd [facility] Work Phone: 2019 17:130500 Height 164 cm Janice Arielnancyjyotinancy [facility] Work Phone: Encounters Encounter Date Encounter Type Care Provider Facility Start: 03-12-2025 End: 03-12-[address] Janice Lloyd DO Work Phone: [facility] Work Phone: Start: 03-12-2025 End: 03-12-[address] Gabrielle Stone MD -Laboratory Work Phone: Start: 03-11-2025 End: 03-11-[address] Janice Lloyd DO Work Phone: [facility] Work Phone: Start: 03-11-2025 End: 03-11-[address] Gabrielle Stone MD -Laboratory Specimen Work Phone: Start: 03-11-2025 End: 03-11-[address] Gabrielle Stone MD -[facility] Work Phone: Start: 03-11-2025 End: 03-11-[address] Gabrielle Stone MD [facility] Start: 03-11-2025 End: 03-12-[address] Janice Lloyd DO Work Phone: [facility] Work Phone: Start: 03-11-2025 End: 03-11-2025 ambulatory Janice Lloyd Facility:[facility] Start: 12-31-2024 End: 12-31-2024 Patient encounter procedure Marcel Vuong AGRICULTURAL COMMODITIES INSPECTOR-ASSET RECOVERY SPECIALIST Work Phone: [facility] Comment on above: Acute non-recurrent maxillary sinusitis (Primary Dx) Start: 12-31-2024 End: 12-31-2024 ambulatory [facility] Start: 09-22-2024 End: 09-22-2024 Office outpatient visit 15 minutes Janice Lloyd DO Work Phone: [facility] Comment on above: Thyroid disease (Gala geoff Dx); Gastroesophageal reflux disease without esophagitis; Acquired hypothyroidism; Polycystic ovarian disease; Anxiety Start: 09-22-2024 End: 09-22-2024 ambulatory [facility] Start: 06-05-2024 End: 06-05-2024 ambulatory [facility] Start: 06-05-2024 End: 06-05-2024 Patient encounter procedure Ruddy Smith PA-C Work Phone: [facility] Comment on above: Acute rhinosinusitis (Primary Dx) Start: 03-10-2024 End: 03-10-2024 Office outpatient visit 25 minutes Janice Lloyd DO Work Phone: [facility] Comment on above: Acquired hypothyroid ism (Primary Dx); Polycystic ovarian disease; Gastroesophageal reflux disease without esophagitis; Thyroid disease Start: 03-10-2024 End: 03-10-2024 ambulatory [facility] Start: 10-30-2023 End: 11-22-[address] Janice Lloyd Work Phone: [facility] Work Phone: Start: 10-30-2023 End: 11-22-[address] [facility] Start: 09-10-2023 End: 09-10-2023 Office outpatient visit 15 minutes Janice Lloyd DO Work Phone: [facility] Comment on above: Gastroesophageal ref lux disease without esophagitis (Primary Dx); Acquired hypothyroidism Start: 09-03-2023 End: 09-03-[address] Janice Lloyd Work Phone: [facility] Work Phone: Start: 09-03-2023 End: 09-03-[address] Janice Lloyd Work Phone: [facility] Work Phone: Start: 09-03-2023 End: 09-23-[address] Janice Lloyd Work Phone: [facility] Work Phone: Start: 09-03-2023 End: 09-23-[address] [facility] Work [facility]: Start: 09-03-[address] [facility] Start: 09-01-2023 ambulatory Facility:[facility] Start: 07-10-2023 End: 07-24-[address] Janice Lloyd Work Phone: [facility] Work Phone: Start: 07-10-2023 End: 07-24-[address] [facility] Start: 06-14-2023 End: 06-14-[address] Janice Lloyd Work Phone: [facility] Work Phone: Start: 03-28-2023 End: 03-28-[address] Janice Lloyd Work Phone: [facility] Work Phone: Start: 03-28-2023 End: 03-28-[address] Janice Lloyd Work Phone: [facility], [facility] Work Phone: Start: 03-12-2023 End: 03-12-2023 Office outpatient visit 25 minutes Janice Lloyd DO Work Phone: [facility] Comment on above: Acquired hypothyroid ism (Primary Dx); Gastroesophageal reflux disease without esophagitis; Right foot pain Start: 03-01-2023 End: 03-01-[address] Janice Lloyd Work Phone: [facility] Start: 03-01-2023 End: 03-01-[address] Janice Lloyd Work Phone: [facility] Work Phone: Start: 01-31-2023 End: 01-31-2023 Office outpatient visit 15 minutes Janice Lloyd DO Work Phone: [facility] [place] [facility] Comment on above: Abscess (Primary Dx) Start: 09-12-2022 AUDIT Janice Gayle user Work Phone: [facility] Work Phone: Start: 09-11-[address] Janice Lloyd Facility:[id number] Start: 05-02-2022 Chart Update Janice Gayle user Work Phone: [facility] Work Phone: Start: 03-20-[address] Janice Lloyd Facility:[id number] Start: 03-20-2022 Office outpatient vi sit 15 minutes Janice Lloyd Work Phone: [facility] Work Phone: Start: 02-28-2022 End: 02-28-[address] Janice Lloyd Work Phone: [facility] Start: 02-02-2022 End: 02-02-2022 Emergency department patient visit Janice Orlando [facility] Start: 01-13-2022 End: 01-13-[address] Janice Lloyd Work Phone: [facility] Start: 12-31-2021 Non-patient / Non-visit Dr. Me dacia Lloyd Work Phone: [facility] Start: 12-30-2021 Non-patient / Non-visit Dr. Me dacia Lloyd Work Phone: [facility] Start: 12-29-2021 Non-patient / Non-visit Dr. Me dacia Lloyd Work Phone: [facility] Start: 12-29-2021 End: 12-31-2021 Evaluation and management of inpatient Dr. Janice Lloyd Work Phone: [facility] Start: 12-24-2021 End: 12-24-2021 Emergency department patient visit Janice Orlando [facility] [place] [facility] Start: 12-22-2021 End: 12-22-[address] Janice Lloyd Work Phone: [facility] Start: 12-15-2021 End: 12-15-[address] Janice Lloyd Work Phone: [facility] Start: 12-08-2021 End: 12-08-[address] Janice Lloyd Work Phone: [facility], Specimen Start: 12-08-2021 End: 12-08-[address] Janice Lloyd Work Phone: [facility] Start: 12-01-2021 End: 12-01-[address] Janice Lloyd Work Phone: [facility] Start: 11-24-2021 End: 11-24-[address] Janice Lloyd Work Phone: [facility] Start: 11-18-2021 End: 11-18-[address] Janice Lloyd Work Phone: [facility] Start: 11-11-2021 End: 11-11-[address] Janice Lloyd Work Phone: [facility] Start: 11-10-2021 End: 11-10-[address] Janice Lloyd Work Phone: [facility] Start: 11-04-2021 End: 11-04-[address] Janice Lloyd Work Phone: [facility] Start: 10-24-2021 Office outpatient vi sit 25 minutes Janice Lloyd Work Phone: [facility] Work Phone: Start: 10-24-[address] Janice Lloyd [facility]:[id number] Start: 10-21-2021 End: 10-21-[address] Janice Lloyd Work Phone: [facility] Start: 10-18-2021 End: 10-18-[address] [facility]: 2021 End: [address] [facility] Start: 09-12-2021 End: 09-12-[address] Janice Lloyd Work Phone: [facility] Start: 08-04-2021 Rx Renewal Janice Gayle user Work Phone: [facility] Work Phone: Start: 04-11-2021 Office outpatient vi sit 25 minutes Janice Lloyd Work Phone: [facility] Work Phone: Start: 03-07-2021 Rx Renewal Janice Mittalha user Work Phone: [facility] Work Phone: Start: 03-04-2021 End: 03-04-2021 ambulatory [facility] Start: 12-22-2020 Encounter for preprocedural laboratory examination [facility] Start: 12-22-2020 End: 12-22-2020 Patient encounter procedure [facility] Russel [facility] Start: 02-09-2018 Ambulatory Tiffany Smith [facility] Start: 12-21-2017 Ambulatory BEATRICE QUEEN [facility] Start: 11-26-2017 Ambulatory BEATRICE QUEEN [facility] Start: 11-13-2017 Ambulatory Richar Friedman [facility] Start: 11-05-2017 Ambulatory BEATRICE QUEEN [facility] Start: 10-29-2017 Ambulatory BEATRICE QUEEN [facility] Start: 10-18-2017 Ambulatory BEATRICE QUEEN [facility] Start: 10-15-2017 Ambulatory BEATRICE QUEEN [facility] Start: 09-26-2017 Ambulatory BEATRICE QUEEN [facility] Start: 09-14-2017 Ambulatory BEATRICE QUEEN [facility] Start: 08-15-2017 Ambulatory BEATRICE QUEEN [facility] Start: 07-20-2017 Ambulatory BEATRICE QUEEN [facility] Start: 07-16-2017 Ambulatory BEATRICE QUEEN [facility] Start: 05-09-2017 Ambulatory BEATRICE QUEEN [facility] Start: 04-27-2017 Ambulatory BEATRICE QUEEN [facility] Start: 04-25-2017 Ambulatory BEATRICE QUEEN [facility] Start: 03-16-2017 Ambulatory [facility] Encounter for preprocedural laboratory examination [facility] Procedures Date Procedure Procedure Detail Performing Clinician Start: 03-12-2025 Vitamin D, 25-hydrox y measurement Dr. Janice Lloyd DO Work Phone: Comment on above: Vitamin D StatusDefi ciency: <20 ng/mL (50nmol/L)Insufficiency: 20-30 ng/mL (50-75 nmol/L)Sufficiency: 30-100 ng/mL (75-250 nmol/L)Toxicity: >100 ng/mL (>250 nmol/L) Start: 03-11-2025 Liquid based cervica l cytology screening Dr. Janice Lloyd DO Work Phone: Comment on above: NEGATIVE FOR INTRAEP ITHELIAL LESION OR MALIGNANCY.THIS SPECIMEN WAS RESCREENED PART OF OUR MANAGER ROOM PROGRAM. This liquid based Th inPrep(R) pap test was screened withthe use of an image guided system. Start: 09-22-2024 Thyrotropin [Units/volume] in Serum or Plasma Marcel YEAGER Work Phone: Start: 09-14-2023 Thyrotropin [Units/volume] in Serum or Plasma Janice Lloyd DO Work Phone: Start: 03-28-[address] Janice Lloyd Work Phone: Start: 09-11-2022 Thyrotropin [Units/volume] in Serum or Plasma Janice Lloyd DO Work Phone: Start: 12-29-2021 End: 12-29-[address] Janice Lloyd Work Phone: Start: 12-08-2021 Ultrasound scan for growth Dr. Janice Lloyd Work Phone: Start: 12-08-2021 Group B Streptococcu s Culture Dr. Janice Lloyd Work Phone: Start: 11-11-2021 Ultrasound scan for growth Dr. Janice Lloyd Work Phone: Start: 09-15-2020 Microscopic observat ion [Identifier] in Cervix by Cyto stain Janice Lloyd DO Work Phone: section Janice downs Dilation and curettage Janice Lloyd H/O: section Previous c esarean section Dr. Janice Lloyd Work Phone: Comment on above: plan RLTCS. Schedule d 12/29 @ 7:30am with SM H/O: surgery Status post bila teral salpingectomy Dr. Janice Lloyd Work Phone: Tonsillectomy Janice cruz Plan of Treatment Date Care Activity Detail Author Start: 2036 Zoster Vaccines (1 o f 2) Zoster Vaccines (1 of 2) [facility] Start: 10-21-2031 DTaP/Tdap/Td Vaccine s (4 - Td or Tdap) DTaP/Tdap/Td Vaccines (4 - Td or Tdap) [facility] Start: 02-04-2029 DTaP/Tdap/Td Vaccine s (2 - Td or Tdap) DTaP/Tdap/Td Vaccines (2 - Td or Tdap) [facility] Start: 09-22-2025 Thyroid stimulating hormone measurement TSH Level [facility] Start: 05-25-2025 Influenza vaccination Influenz a Vaccine (Season Ended) [facility] Start: 03-11-2025 Liquid based cervica l cytology screening [facility] Start: 09-15-2024 End: 09-15-2024 Patient encounter procedure 09/15/2024 10:40 AM EST Office Visit [facility] [address] [place] [address] Janice Lloyd, DO [address] [facility] [place] [address] [facility] Start: 09-14-2024 Thyroid stimulating hormone measurement TSH Level [facility] Start: 05-25-2024 COVID-19 Vaccine ( season) COVID-19 Vaccine ( season) [facility] Start: 05-25-2024 COVID-19 Vaccine ( season) COVID-19 Vaccine ( season) [facility] Start: 05-25-2024 Influenza vaccination [facility] Start: 03-10-2024 End: 03-10-2025 TSH with reflex to Free T4 if abnormal TSH with reflex to Free T4 if abnormal Lab Routine Acquired hypothyroidism Expected: 03/10/2024 (Approximate), Expires: 03/10/2025 [facility] Service Area Work Phone: Comment on above: Expected: 03/10/2024 (Approximate), Expires: 03/10/2025 Start: 09-15-2023 Screening for malignant neoplasm of cervix [facility] Start: 09-11-2023 Thyroid stimulating hormone measurement TSH Level [facility] Start: 09-10-2023 End: 09-10-2023 Patient encounter procedure 09/10/2023 3:40 PM EST Office Visit [facility] [address] [place] [address] Janice Lloyd, DO [address] [facility] [place] [address] [facility] Start: 06-12-2023 End: 03-12-2024 TSH with reflex to Free T4 if abnormal TSH with reflex to Free T4 if abnormal Lab Routine Acquired hypothyroidism Expected: 06/12/2023 (Approximate), Expires: 03/12/2024 [facility] Service Area Work Phone: Comment on above: Expected: 06/12/2023 (Approximate), Expires: 03/12/2024 Start: 05-25-2023 COVID-19 Vaccine ( season) COVID-19 Vaccine () [facility] Start: 05-25-2023 Influenza vaccination Influenza Vacc ine (#1) [facility] Start: 03-12-2023 End: 03-12-2024 XR Foot Views XR foot right 1-2 views Imaging Routine Right foot pain Expected: 03/12/2023, Expires: 03/12/2024 [facility] Work Phone: Comment on above: Expected: 03/12/2023 , Expires: 03/12/2024 Start: 03-12-2023 FUV, Provider: Janice Lloyd, Status: Pen, Time: 10:20 AM FUV, Provider: Janice Lloyd, Status: Pen, Time: 10:20 AM [facility] Work Phone: Start: 03-12-2023 End: 03-12-2023 Patient encounter procedure 03/12/2023 10:20 AM EDT Office Visit [facility] [address] [address] Janice Lloyd L, DO [address] [facility] [place] [address] [facility] Start: 09-11-2022 FUV, Provider: Janice Lloyd, Status: Pen, Time: 3:40 PM FUV, Provider: Janice Lloyd, Status: Pen, Time: 3:40 PM [facility] Work Phone: Start: 03-20-2022 FUV, Provider: Janice Lloyd, Status: Pen, Time: 10:00 AM FUV, Provider: Janice Lloyd, Status: Pen, Time: 10:00 AM [facility] Work Phone: Start: 03-20-2022 Patient encounter procedure [facility] Start: 12-29-2021 section Repeat C-Sect ion Bilateral Salpingectomy (Bilateral) [facility] Work Phone: Start: 10-10-2021 FUV, Provider: Janice Lloyd, Status: Pen, Time: 8:20 AM FUV, Provider: Janice Lloyd, Status: Pen, Time: 8:20 AM [facility] Work Phone: Start: 04-11-2021 FUV, Provider: Janice Lloyd, Status: Pen, Time: 8:40 AM FUV, Provider: Janice Lloyd, Status: Pen, Time: 8:40 AM [facility] Work Phone: Start: 2007 Screening for malignant neoplasm of cervix HPV/Cotest [facility] Start: 2005 Hepatitis B Vaccines (1 of 3 - 19+ 3-dose series) Hepatitis B Vaccines (1 of 3 - 19+ 3-dose series) [facility] Start: 2004 Diabetes mellitus screening Diabetes Screening [facility] Start: 2004 Hepatitis C screening Hepatitis C [facility] Start: 1999 Varicella vaccination Varicell a Vaccines (1 of 2 - 13+ 2-dose series) [facility] Start: 1987 MMR Vaccines (1 of 1 - Standard series) MMR Vaccines (1 of 1 - Standard series) [facility] Start: 1987 Varicella vaccination Varicell a Vaccines (1 of 2 - 2-dose childhood series) [facility] Start: 04-05-1987 COVID-19 Vaccine (#1) COVID-19 Vacci ne (#1) [facility] Start: 1986 Hepatitis B Vaccines (1 of 3 - 3-dose series) Hepatitis B Vaccines (1 of 3 - 3-dose series) [facility] Start: 1986 HIV screening HIV Screening [facility] Start: 1986 Lipid panel Lipid Panel [facility] Start: 1986 Thyroid stimulating hormone measurement TSH Level [facility] Start: 1986 Yearly Adult Physical Yearly Adult P hysical [facility] CBC W Auto Differential panel - Blood [facility] Comprehensive metabolic 1999 panel - Serum or Plasma [facility] Cytology report of Cervical or vaginal smear or scraping Cyto stain.thin prep [facility] Hemoglobin A1c/Hemoglobin.total in Blood [facility] Lipid 1995 panel - Serum or Plasma [facility] Lipid 1995 panel - Serum or Plasma [facility] Path report.final Dx Spec [facility] Patient Education C Section Dc [facility] Work Phone: Patient referral [facility] Work Phone: Provider instruction s for treatment (procedure) ROSA [facility] Work Phone: Thyroid stimulating hormone measurement [facility] Vitamin D, 25-hydrox y measurement [facility] NEGATED: Highlighted row has been ruled out! Planned Goals not documented [facility] Work Phone: Immunizations Immunization Date Immunization Notes Care Provider Fa cilisabrina 07-14-2022 influenza, injectabl e, quadrivalent, contains preservative Janice Lloyd DO Work Phone: [facility] Work Phone: 07-14-2022 influenza virus vaccine, unspecified formulation Janice Lloyd DO Work Phone: [facility] Work Phone: 10-21-2021 diphtheria, tetanus toxoids and acellular pertussis vaccine, unspecified formulation Dr. Janice Lloyd Work Phone: [facility] Work Phone: 10-21-2021 tetanus toxoid, redu cece diphtheria toxoid, and acellular pertussis vaccine, adsorbed Janice Weaver Oberhauser Work Phone: [facility] 09-09-2021 Moderna COVID-19 Vaccine 100 MCG/0.5ML Intramuscular Suspension Janice L Oberhauser Work Phone: [facility] 07-16-2021 influenza, injectabl e, quadrivalent, preservative free Janice L Oberhauser Work Phone: [facility] Work Phone: 06-24-2021 influenza, injectabl e, quadrivalent, preservative free Dr. Janice Lloyd Work Phone: [facility] 06-24-2021 influenza, seasonal, injectable Dr. Janice Lloyd Work Phone: [facility] 11-26-2020 Moderna COVID-19 Vaccine 100 MCG/0.5ML Intramuscular Suspension Janice L Oberhauser Work Phone: [facility] 10-29-2020 Moderna COVID-19 Vaccine 100 MCG/0.5ML Intramuscular Suspension Janice L Oberhauser Work Phone: [facility] 08-06-2020 influenza, injectabl e, quadrivalent, contains preservative Janice Weaver Oberhauser Work Phone: [facility] Work Phone: 06-27-2019 influenza, injectabl e, quadrivalent, preservative free Janice Weaver Oberhauser Work Phone: [facility] Work Phone: 02-04-2019 tetanus toxoid, redu cece diphtheria toxoid, and acellular pertussis vaccine, adsorbed Janice L Oberhauser Work Phone: [facility] Payers Date Payer Category Payer Self-pay [id number] 2023 [facility] [id number] 2023 Unknown [id number] 2022 Unknown 2022 Unknown [id number] 2015 Unknown [id number] 1986 Unknown [id number] 651 1986 Unknown [id number]. 598 1986 Unknown [id number] [id number]. 356 1986 Unknown [id number] [id number]. 356 1986 Unknown [id number]. 356 1986 Unknown [id number] [id number]. 1244 1986 Unknown [id number] [id number]. 1244 1986 Unknown [id number] [id number]. 1245 1986 Unknown [id number] [id number]. 1243 1986 Unknown [id number] [id number]. 1243 Self-pay SELF PAY BY [employer] [id number] Unknown [facility] [id number] Unknown [id number] [id number]. 462 Unknown [id number] [id number]. 462 Unknown [id number]. 462 Social History Date Type Detail Facility Start: 03-12-2023 End: 09-22-2024 No advance directives No advance directives [facility] Start: 12-08-2021 End: 09-03-2023 Tobacco smoking status NHIS Unknown if ever smoked [facility] Start: 1985 Sex Assigned At Female [facility] Start: 01-31-2023 End: 09-03-2023 Tobacco smoking status NHIS Never smoked tobacco [facility] Work Phone: Start: 01-31-2023 Tobacco use and exposure Smokeless tobacco non-user [facility] Work Phone: Start: 1986 Sex Assigned At Not on file [facility] Work Phone: Start: 03-12-2023 End: 09-22-2024 Gender identity Not on file [facility] Start: 03-12-2023 End: 09-10-2023 Alcohol intake Ex-drinker (finding) [facility] Work Phone: Start: 03-02-2023 End: 12-31-2024 Exposure to SARS-CoV-2 (event) Not sure [facility] Start: 03-10-2024 End: 09-22-2024 Alcoholic beverage intake Current drinker of alcohol (finding) [facility] Work Phone: NEGATED: Highlighted row - - [facility] Work Phone: Functional Status Date Assessment Result Facility NEGATED: Highlighted row Functional performance Functional status health issues are not documented Disease [facility] Work Phone: Mental Status Date Assessment Result Facility NEGATED: Highlighted row Cognitive function [Interpretation] Cognitive status health issues are not documented Disease [facility] Work Phone: Clinical Notes 12-23-2021 to 03-11-2025 Note Date & Type Note Facility 03-11-2025 Evaluation note Diagnosis Onset Date Resolution Adult BMI 45.0-49.9 kg/sq m acute March 11, 2025 1:17pm Metabolic syndrome acute February 222024 1:17pm Polycystic ovarian syndrome acute March 11, 2025 1:17pm Encounter for routine gynecological examination noneactive March 11, 2025 1:17pm [facility] Work Phone: 1(828) 115-507604-09-2025 History of Present illness Narrative* TOY Vargas - 12/31/2024 9:25 AM EDT 39 y.o. female patient presents for evaluation of sinus pressure. Patient reports 1 week of progressively worsening maxillary sinus pain, nasal congestion, and headache. There is reported mild postnasal drip with associated cough. No fever, rashes, n/v/d, ear pains, headache, dizziness, chest pains, SOB or other constitutional signs and symptoms. Symptoms have been refractory to fjyf-but-efvypay medications. Vitals: 12/31/24 0928 BP: 138/84 Pulse: 76 Resp: 14 Temp: 37 C (98.6 F) SpO2: 98% Allergies Allergen Reactions Sulfa (Sulfonamide Antibiotics) Rash Medication Documentation Review Audit Reviewed by TOY Vargas (Nurse Practitioner) on 12/31/24 at 0931 Medication Order Taking? Sig Documenting Provider Last Dose Status albuterol 90 mcg/actuation inhaler [id number] Inhale 2 puffs every 6 hours if needed for wheezing. Ruddy Smith PA-C Active Isibloom 0.15-0.03 mg tablet [id number] Yes Take 1 tablet by mouth early in the morning.. HistoricalProMD alfonso Active levothyroxine (Synthroid, Levoxyl) 100 mcg tablet [id number] Yes Take 1 tablet (100 mcg) by mouth early in the morning.. Take on an empty stomach at the same time each day, either 30 to 60 minutes prior to breakfast Janice Lloyd DO Active omeprazole (PriLOSEC) [address] capsule [id number] Yes Take 1 capsule (10 mg) by mouth once daily in the morning. Take before meals. Do not crush or chew. Janice Lloyd DO Active sertraline (Zoloft) 50 mg tablet [id number] Yes Take 1 tablet (50 mg) by mouth early in the morning.. Patient taking differently: Take 2 tablets (100 mg) by mouth early in the morning.. Historical ProviderMD Active Synthroid 100 mcg tablet [id number] Take 1 tablet (100 mcg) by mouth early in the morning.. Take on an empty stomach at the same time each day, either 30 to 60 minutes prior to breakfast Patient not taking: Reported on 12/31/2024 Janice Lloyd DO Flag for Review Past Medical History: Diagnosis Date Allergic Ar least 10 years Anxiety Always Disease of thyroid gland 2014 GERD (gastroesophageal reflux disease) Since a teenager Urinary tract infection UTI--July 2012 Past Surgical History: Procedure Laterality Date ADENOIDECTOMY As a child SECTION, LOW TRANSVERSE 04/07/19 AND 12/29/2021 OTHER SURGICAL HISTORY 2019 Dilation and curettage OTHER SURGICAL HISTORY 2019 section OTHER SURGICAL HISTORY 2019 Tonsillectomy TONSILLECTOMY As a child ROS See HPI Physical Exam Vitals and nursing note reviewed. Constitutional: Appearance: She is ill-appearing (mildly). HENT: Head: Normocephalic and atraumatic. Right Ear: Ear canal normal. No drainage. A middle ear effusion (clear) is present. Tympanic membrane is bulging. Tympanic membrane is not perforated, erythematous or retracted. Left Ear: Ear canal normal. No drainage. A middle ear effusion (clear) is present. Tympanic membrane is bulging. Tympanic membrane is not perforated, erythematous or retracted. Nose: Congestion present. Right Sinus: Maxillary sinus tenderness present. Left Sinus: Maxillary sinus tenderness present. Mouth/Throat: Mouth: Mucous membranes are moist. Pharynx: Oropharynx is clear. Eyes: Extraocular Movements: Extraocular movements intact. Conjunctiva/sclera: Conjunctivae normal. Pupils: Pupils are equal, round, and reactive to light. Cardiovascular: Rate and Rhythm: Normal rate. Pulmonary: Effort: Pulmonary effort is normal. Breath sounds: Normal breath sounds. Lymphadenopathy: Cervical: No cervical adenopathy. Skin: General: Skin is warm and dry. Neurological: General: No focal deficit present. Mental Status: She is alert and oriented to person, place, and time. Psychiatric: Mood and Affect: Mood normal. Behavior: Behavior normal. Assessment/Plan/MDM Cassandra was seen today for uri. Diagnoses and all orders for this visit: Acute non-recurrent maxillary sinusitis (Primary) - amoxicillin-pot clavulanate (Augmentin) 875-125 mg tablet; Take 1 tablet by mouth 2 times a day for 10 days. Encouraged pt to use otc cold remedies PRN, push PO fluids and rest. Patient's clinical presentation is otherwise unremarkable at this time. Patient is discharged with instructions to follow-up with primary care or seek emergency medical attention for worsening symptoms or any new concerns. I did personally review Cassandra's past medical history, surgical history, social history, as well as family history (when relevant). In this case, I also oversaw the her drug management by reviewing her medication list, allergy list, as well as the medications that I prescribed during the UC course and/or recommended as an out-patient (including possible OTC medications such as acetaminophen, NSAIDs , etc). After reviewing the items above, I did look at previous medical documentation, such as recent hospitalizations, office visits, and/or recent consultations with PCP/specialist. SDOH: Another factor that I considered in Cassandra's care was her Social Determinants of Health (SDOH). During this UC encounter, she did not have social determinants of health. Those SDOH influencing Cassandra's care are: none Marcel Vuong CNP [facility] [phone] documented in this [facility] Work Phone: 1(978) 838-165912-30-2024 History of Present illness Narrative* Janice Lloyd, DO - 09/22/2024 8:00 AM EST Subjective Patient ID: Cassandra Mendoza is a 38 y.o. female who presents for Follow-up (6 months). HPI Patient is here today for 6 mo follow up Pt reports that she needs a refill on synthroid and omeprazole. Review of Systems Constitutional: Negative for activity change, appetite change, chills and fatigue. HENT: Positive for congestion. Negative for postnasal drip, sinus pressure, sinus pain and sore throat. Respiratory: Positive for cough. Negative for shortness of breath and wheezing. Cardiovascular: Negative for chest pain and leg swelling. Gastrointestinal: Negative for abdominal distention, diarrhea, nausea and vomiting. Musculoskeletal: Negative for back pain. Neurological: Negative for weakness and numbness. Objective BP 125/82 Pulse 77 Ht 1.6 m (5' 3) Wt 118 kg (260 lb) BMI 46.06 kg/m Physical Exam Constitutional: General: She is not in acute distress. Appearance: Normal appearance. HENT: Head: Normocephalic. Right Ear: Tympanic membrane, ear canal and external ear normal. Left Ear: Tympanic membrane, ear canal and external ear normal. Nose: Nose normal. Mouth/Throat: Pharynx: No oropharyngeal exudate or posterior oropharyngeal erythema. Eyes: General: Right eye: No discharge. Left eye: No discharge. Extraocular Movements: Extraocular movements intact. Pupils: Pupils are equal, round, and reactive to light. Cardiovascular: Rate and Rhythm: Normal rate and regular rhythm. Heart sounds: No murmur heard. No gallop. Pulmonary: Effort: Pulmonary effort is normal. No respiratory distress. Breath sounds: Normal breath sounds. No wheezing. Musculoskeletal: General: No swelling. Normal range of motion. Cervical back: Neck supple. No tenderness. Skin: General: Skin is warm and dry. Coloration: Skin is not jaundiced. Neurological: General: No focal deficit present. Mental Status: She is alert and oriented to person, place, and time. Cranial Nerves: No cranial nerve deficit. Psychiatric: Mood and Affect: Mood normal. Behavior: Behavior normal. Assessment/Plan Problem List Items Addressed This Visit Anxiety GERD (gastroesophageal reflux disease) Relevant Medications omeprazole (PriLOSEC) [address] capsule Hypothyroidism Relevant Medications Synthroid 100 mcg tablet Polycystic ovarian disease Thyroid disease - Primary Immunizations Flu shot 2023 COVID received PNA -- Shingles -- RSV-- Mammo -- Pap Colon cancer screening -- DEXA -- Hypothyroidism - tsh 4.6, T4 0.87 - continue synthroid 100mg - repeat tsh ordered 2. GERD - 10mg omeprazole daily 3. PCOS - seeing Animal Cruelty Investigation Supervisor - tried metformin in the past and had diarrhea Advised pt that I will be leaving at the end of Oct 2024 and will need to find a new pcp. Final diagnoses: [K21.9] Gastroesophageal reflux disease without esophagitis [E03.9] Acquired hypothyroidism [E07.9] Thyroid disease [E28.2] Polycystic ovarian disease [F41.9] [facility] 1(735) 454-257609-12-2024 History of Present illness Narrative* Ruddy Smith PA-C - 06/05/2024 10:00 AM EDT [facility] NOTE: Name: Cassandra Mendoza, 38 y.o. CSN:[id number] PCP: Janice Lloyd DO ALL: Allergies Allergen Reactions Sulfa (Sulfonamide Antibiotics) Rash History: Chief Complaint: URI (Cough/congestion, chills x 10 days. Negative home test 06/02 and another on 06/04) and Diarrhea (Diarrhea x 2 days ) Encounter Date: 06/05/2024 1030 HPI: The history was obtained from the patient. Cassandra is a 38 y.o. female, who presents with a chief complaint of URI (Cough/congestion, chills x 10 days. Negative home test 06/02 and another on 06/04) and Diarrhea (Diarrhea x 2 days ) Patient has also been experiencing mild headaches and feeling feverish for which she has taken advil. 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 Patient denies any fever but does endorse taking at least 3 COVID tests and all were negative. PMHx: Past Medical History: Diagnosis Date Allergic Ar least 10 years Anxiety Always Disease of thyroid gland 2014 GERD (gastroesophageal reflux disease) Since a teenager Urinary tract infection UTI--July 2012 Current Outpatient Medications Medication Sig Dispense Refill Isibloom 0.15-0.03 mg tablet Take 1 tablet by mouth early in the morning.. omeprazole (PriLOSEC) [address] capsule Take 1 capsule (10 mg) by mouth once daily in the morning. Take before meals. Do not crush or chew. 90 capsule 1 sertraline (Zoloft) 50 mg tablet Take 1 tablet (50 mg) by mouth early in the morning.. Synthroid 100 mcg tablet Take 1 tablet (100 mcg) by mouth early in the morning.. Take on an empty stomach at the same time each day, either 30 to 60 minutes prior to breakfast 90 tablet 1 albuterol 90 mcg/actuation inhaler Inhale 2 puffs every 6 hours if needed for wheezing. 18 g 0 azithromycin (Zithromax) 250 mg tablet Take 2 tablets (500 mg) on Day 1, followed by 1 tablet (250 mg) once daily on Days 2 through 5. 6 tablet 0 fluticasone (Flonase) 50 mcg/actuation nasal spray Administer 1 spray into each nostril once daily.Shake gently. Before first use, prime pump. After use, clean tip and replace cap. 16 g 0 progesterone (Prometrium) 200 mg capsule Take 1 capsule (200 mg) by mouth if needed. fvdgjewgcekltls-CV-rdprlwemkes (Capmist DM) 60-15-400 mg tablet Take 1 tablet by mouth 3 times a day for 7 days. 21 tablet 0 No current facility-administered medications for this visit. PMSx: Past Surgical History: Procedure Laterality Date ADENOIDECTOMY As a child SECTION, LOW TRANSVERSE 04/07/19 AND 12/29/2021 OTHER SURGICAL HISTORY 2019 Dilation and curettage OTHER SURGICAL HISTORY 2019 section OTHER SURGICAL HISTORY 2019 Tonsillectomy TONSILLECTOMY As a child Fam Hx: Family History Problem Relation Name Age of Onset Hypertension Father Javier Soto Diabetes Maternal Grandmother Ebonie Haque Cancer Paternal Grandmother Nguyen Soto SOC. Hx: Social History Socioeconomic History Marital status: Spouse name: Not on file Number of children: Not on file Years of education: Not on file Highest education level: Not on file Occupational History Not on file Tobacco Use Smoking status: Never Smokeless tobacco: Never Vaping Use Vaping status: Never Used Substance and Sexual Activity Alcohol use: Yes Alcohol/week: 3.0 standard drinks of alcohol Types: 3 Cans of beer per week Drug use: Never Sexual activity: Yes Partners: Male control/protection: Female Sterilization Other Topics Concern Not on file Social History Narrative Not on file Social Determinants of Health Financial Resource Strain: Low Risk (07/14/2022) Received from [facility] Overall Financial Resource Strain (CARDIA) Difficulty of Paying Living Expenses: Not hard at all Food Insecurity: No Food Insecurity (07/14/2022) Received from [facility] Hunger Vital Sign Worried About Running Out of Food in the Last Year: Never true Ran Out of Food in the Last Year: Never true Transportation Needs: No Transportation Needs (07/14/2022) Received from [facility] PRAPARE - Transportation Lack of Transportation (Medical): No Lack of Transportation (Non-Medical): No Physical Activity: Insufficiently Active (07/14/2022) Received from [facility] Exercise Vital Sign Days of Exercise per Week: 2 days Minutes of Exercise per Session: 10 min Stress: Stress Concern Present (07/14/2022) Received from [facility] [place] [facility] - Occupational Stress Questionnaire Feeling of Stress : To some extent Social Connections: Unknown (07/14/2022) Received from [facility] Social Connection and Isolation Panel [NHANES] Frequency of Communication with Friends and Family: Once a week Frequency of Social Gatherings with Friends and Family: Once a week Attends Judaism Services: Patient declined Active Member of Clubs or Organizations: No Attends Club or Organization Meetings: Patient declined Marital Status: Intimate Partner Violence: Not on file Housing Stability: Low Risk (07/14/2022) Received from [facility] Housing Stability Vital Sign Unable to Pay for Housing in the Last Year: No Number of Places Lived in the Last Year: 1 Unstable Housing in the Last Year: No Vitals: 06/05/24 1101 BP: 122/72 Pulse: 91 Resp: 14 Temp: 36.9 C (98.4 F) SpO2: 96% 122 kg (270 lb) Physical Exam Vitals reviewed. Constitutional: Appearance: Normal appearance. She is normal weight. HENT: Head: Normocephalic and atraumatic. Nose: Mucosal edema and congestion present. Right Turbinates: Enlarged and swollen. Left Turbinates: Enlarged and swollen. Mouth/Throat: Mouth: Mucous membranes are moist. Eyes: Extraocular Movements: Extraocular movements intact. Cardiovascular: Rate and Rhythm: Normal rate and regular rhythm. Pulmonary: Effort: Pulmonary effort is normal. Breath sounds: Normal breath sounds. No decreased breath sounds, wheezing or rhonchi. Abdominal: General: Abdomen is flat. Musculoskeletal: General: Normal range of motion. Cervical back: Normal range of motion and neck supple. Skin: General: Skin is warm. Capillary Refill: Capillary refill takes less than 2 seconds. Neurological: Mental Status: She is alert and oriented to person, place, and time. Psychiatric: Behavior: Behavior normal. I did personally review Cassandra's past medical history, surgical history, social history, as well as family history (when relevant). In this case, I also oversaw the her drug management by reviewing her medication list, allergy list, as well as the medications that I prescribed during the UC course and/or recommended as an out-patient (including possible OTC medications such as acetaminophen, NSAIDs , etc). After reviewing the items above, I did look at previous medical documentation, such as recent hospitalizations, office visits, and/or recent consultations with PCP/specialist. SDOH: Another factor that I considered in Cassandra's care was her Social Determinants of Health (SDOH). During this UC encounter, she did not have social determinants of health. Those SDOH influencing Cassandra's care are: none UC COURSE/MEDICAL DECISION MAKING: Cassandra is a 38 y.o., who presents with a working diagnosis of 1. Acute rhinosinusitis with a differential to include: Influenza, parainfluenza, rhinovirus, adenovirus, metapneumovirus, coronavirus, COVID-19, postnasaldrip, strep pharyngitis, GERD, retropharyngeal abscess, tonsillitis, adenitis, seasonal allergies Plan: 1) URI with cough/congestion: supportive care recommended, discussed use of OTC analgesics APAP/NSAID for fever/pain control, discussed hydration & when to seek re-evaluation. I, Ben Vo, JAMILA student, helped prepare the medical record for my supervising clinician, uRddy Smith PA-C. TYRONE Blanchard, [facility] Supervised by Ruddy Smith PA-C Advanced Practice Provider [facility] I was present with the JAMILA student who participated in the documentation of this note. I have personally seen and re-examined the patient and performed the medical decision-making components (assessment and plan of care). I have reviewed the JAMILA student documentation and verified the findings in the note as written with additions or exceptions as stated in the body of this note. Ruddy Smith PA-C [facility] Work Phone: [phone] 479-541609-12-2024 Instructions* Patient Instructions* Ruddy Smith PA-C - 06/05/2024 10:00 AM EDT Managing Symptoms of Upper Respiratory Infections (URI) for Adults You can expect the symptoms of your cold or upper respiratory infection to last 14 to 21 days.A dryhacking cough may continue up to three or four weeks. To help you recover: Drink more fluids. Get enough rest. Use a humidifier or increase time in a steamy shower. Keep in mind that green or yellow secretion do not equal bacterial infection. Additional recommendations for managing your symptoms: Fever, headache, or pain Acetaminophen (Tylenol ) 325 mg 2 tablets every 6 hours as needed for the first 5-7 days of infection. Acetaminophen (Tylenol ) 500 mg, 2 tablets every 8 hours as needed for the first 5-7 days of infection. Maximum dose: 3000 mg of acetaminophen in 24 hours. Avoid combination products that contain acetaminophen (read the label) while taking scheduled acetaminophen. Use lowest effective dose for the shortest possible duration to reduce the risk of serious adverse effects. ? Ibuprofen (Advil , Motrin ) 200 mg, 3 tablets every 6 hours-8 hours. Avoid ibuprofen if you have kidney disease, coronary heart disease, heart failure, or history of a gastric ulcer or gastric surgery Maximum dose: 2400 mg of ibuprofen in 24 hours. Use lowest needed dose for the shortest possible time frame to reduce the risk of serious side effects. Do not use longer than 7 days, unless directed by your health care provider. Take with food to prevent getting an upset stomach. Sore throat ? Take acetaminophen and/or ibuprofen as above. ? Use throat lozenges with benzocaine which help numb your sore throat (Cepacol , chloraseptic brands). ? Gargle with saltwater several times a day to help relieve throat pain. Mix 1/4 teaspoon (1.4 grams) of table salt in 8 ounces (237 milliliters) of warm water. Gargle the solution and then spit it out. Sinus drainage, sinus/nose/ear congestion (nose drainage, drainage in the back of the throat, sinus pressure, facial pain, nose stuffiness, ear pressure) It is common to have nasal drainage of various colors with a viral cold or upper respiratory infection. These usually get better with time and do not require antibiotics. ? Saline sinus rinse - Mix and use according to directions on the product (NeilMed , XClear ). ? Nasal spray (Flonase , Nasacort ) - 2 sprays per nostril once a day after a saline sinus irrigation. ? Oxymetazoline nasal spray (Afrin , Sinex ) Take two or three times a day for 3 days. Do not use longer than 5 days. After 5 days, use saline nasal spray or the saline sinus rinse ? Sudafed (pseudoephedrine) capsules - Take every 4 to 6 hours per package instructions for sinus congestion. Available behind the pharmacy counter. Avoid if you have high blood pressure, heart disease or take beta blockers (atenolol, metoprolol, etc). Do not exceed 240 mg per day. Longer acting medications may have more side effects such restlessness and insomnia. Cough Avoid coughing too hard or too often. Excessive coughing may cause bronchial (tubes going to the lungs) irritation which could cause a bhwzp-uhtrcamv-rczub cycle that can prolong the cough for weeks. ? Honey - 1 to 2 teaspoons every 4 to 6 hours as needed. ? Cough drops every 4 to 6 hours as needed. ? Guaifenesin/dextromethorphan syrup - (Robitussin DM ) per package instructions. Do not take if you are taking an antidepressant, opioid pain medication, sleeping medication, or antipsychotic medication. documented in this [facility] Work Phone: [phone]) 129-620606-17-2024 History of Present illness Narrative* Janice Lloyd, DO - 03/10/2024 10:40 AM EDT Subjective Patient ID: Cassandra Mendoza is a 38 y.o. female who presents for Follow-up (6 month). HPI Patient is here today for 6 mo follow up Patient had her annual visit with her neurocritical care physician last week. She had labs drawn TSH 4.63, t4 0.86. She has been feeling more fatigued and has had some more hair loss. Review of Systems Constitutional: Positive for fatigue. Negative for activity change, appetite change and chills. HENT: Negative for congestion, postnasal drip, sinus pressure, sinus pain and sore throat. Respiratory: Negative for cough, shortness of breath and wheezing. Cardiovascular: Negative for chest pain and leg swelling. Gastrointestinal: Negative for abdominal distention, diarrhea, nausea and vomiting. Musculoskeletal: Negative for back pain. Neurological: Negative for weakness and numbness. Objective BP 136/74 Pulse 67 Ht 1.626 m (5' 4) Wt 124 kg (274 lb) BMI 47.03 kg/m Physical Exam Constitutional: General: She is not in acute distress. Appearance: Normal appearance. HENT: Head: Normocephalic. Nose: Nose normal. Mouth/Throat: Pharynx: No oropharyngeal exudate. Eyes: General: Right eye: No discharge. Left eye: No discharge. Extraocular Movements: Extraocular movements intact. Pupils: Pupils are equal, round, and reactive to light. Cardiovascular: Rate and Rhythm: Normal rate and regular rhythm. Heart sounds: No murmur heard. No gallop. Pulmonary: Effort: Pulmonary effort is normal. No respiratory distress. Breath sounds: Normal breath sounds. No wheezing. Abdominal: General: Bowel sounds are normal. There is no distension. Palpations: Abdomen is soft. Tenderness: There is no abdominal tenderness. Hernia: A hernia (small umbilical hernia) is present. Musculoskeletal: General: No swelling. Normal range of motion. Skin: General: Skin is warm and dry. Coloration: Skin is not jaundiced. Neurological: General: No focal deficit present. Mental Status: She is alert and oriented to person, place, and time. Cranial Nerves: No cranial nerve deficit. Psychiatric: Mood and Affect: Mood normal. Behavior: Behavior normal. Pap 03/17 Mammo -- DEXA -- Colon cancer screening -- Assessment/Plan Problem List Items Addressed This Visit GERD (gastroesophageal reflux disease) Hypothyroidism - Primary Relevant Medications Synthroid 100 mcg tablet Other Relevant Orders TSH with reflex to Free T4 if abnormal Polycystic ovarian disease Thyroid disease Hypothyroidism - tsh 4.6, T4 0.87 - increase synthroid to 100mcg - repeat tsh in 6 weeks 2. GERD - 10mg omeprazole daily 3. PCOS - seeing Animal Cruelty Investigation Supervisor - discussing doing adipex - has done metformin and had severe diarrhea Final diagnoses: [E03.9] Acquired hypothyroidism [E28.2] Polycystic ovarian disease [K21.9] Gastroesophageal reflux disease without esophagitis [E07.9] Thyroid disease [facility] Work Phone: [phone] 489-527512-18-2023 History of Present illness Narrative* Janice Lloyd DO - 09/10/2023 3:40 PM EST Subjective Patient ID: Cassandra Mendoza is a 37 y.o. female who presents for Follow-up (6 mo follow up did not do labs). HPI Patient is here today for 6 mo follow up Pt has thyroid labs that she needs to do. She has tried to cut back on her omeprazole but then that choking feeling comes back, will try 10mgdaily. Review of Systems Gastrointestinal: +gerd Objective BP 126/76 Pulse 55 Ht 1.626 m (5' 4) Wt 122 kg (270 lb) BMI 46.35 kg/m Physical Exam Constitutional: General: She is not in acute distress. Appearance: Normal appearance. HENT: Head: Normocephalic. Nose: Nose normal. Mouth/Throat: Mouth: Mucous membranes are dry. Pharynx: No oropharyngeal exudate. Eyes: General: Right eye: No discharge. Left eye: No discharge. Extraocular Movements: Extraocular movements intact. Pupils: Pupils are equal, round, and reactive to light. Cardiovascular: Rate and Rhythm: Normal rate and regular rhythm. Heart sounds: No murmur heard. No gallop. Pulmonary: Effort: Pulmonary effort is normal. No respiratory distress. Breath sounds: Normal breath sounds. No wheezing. Abdominal: General: Bowel sounds are normal. There is no distension. Palpations: Abdomen is soft. Tenderness: There is no abdominal tenderness. Musculoskeletal: General: No swelling. Normal range of motion. Skin: General: Skin is warm and dry. Coloration: Skin is not jaundiced. Neurological: General: No focal deficit present. Mental Status: She is alert and oriented to person, place, and time. Cranial Nerves: No cranial nerve deficit. Psychiatric: Mood and Affect: Mood normal. Behavior: Behavior normal. Assessment/Plan Problem List Items Addressed This Visit GERD (gastroesophageal reflux disease) - Primary Relevant Medications omeprazole (PriLOSEC) [address] capsule Hypothyroidism - tsh 0.22, t4 1.02, repeat tsh - continue synthroid 2. GERD - reduce to 10mg omeprazole daily Final diagnoses: [K21.9] Gastroesophageal reflux disease without esophagitis documented in this [facility] Work Phone: [phone]) [phone] History of Present illness Narrative* Janice Lloyd DO - 03/12/2023 10:20 AM EDT Subjective Patient ID: Cassandra Mendoza is a 37 y.o. female who presents for Follow-up (6 month). HPI Patient is here today for 6 mo follow up She had labs run by her OBGYN and her TSH was 0.22, T4 was 1.02 done on 02/27/23. She has not been having anxiety, jitteryness, diarrhea, etc. Review of Systems Constitutional: Negative for activity change, appetite change, chills and fatigue. HENT: Negative for congestion, postnasal drip, sinus pressure, sinus pain and sore throat. Respiratory: Negative for cough, shortness of breath and wheezing. Cardiovascular: Negative for chest pain and leg swelling. Gastrointestinal: Negative for abdominal distention, diarrhea, nausea and vomiting. Musculoskeletal: Negative for back pain. Neurological: Negative for weakness and numbness. Objective BP 130/76 (BP Location: Left arm, Patient Position: Sitting, BP Cuff Size: Adult) Pulse 63 Ht 1.626 m (5' 4) Wt 122 kg (269 lb) BMI 46.17 kg/m Physical Exam Constitutional: General: She is not in acute distress. Appearance: Normal appearance. HENT: Head: Normocephalic. Nose: Nose normal. Mouth/Throat: Mouth: Mucous membranes are dry. Pharynx: No oropharyngeal exudate. Eyes: General: Right eye: No discharge. Left eye: No discharge. Extraocular Movements: Extraocular movements intact. Pupils: Pupils are equal, round, and reactive to light. Cardiovascular: Rate and Rhythm: Normal rate and regular rhythm. Heart sounds: No murmur heard. No gallop. Pulmonary: Effort: Pulmonary effort is normal. No respiratory distress. Breath sounds: Normal breath sounds. No wheezing. Musculoskeletal: General: Tenderness (pain along right dorsum of foot) present. No swelling. Normal range of motion. Skin: General: Skin is warm and dry. Coloration: Skin is not jaundiced. Neurological: General: No focal deficit present. Mental Status: She is alert and oriented to person, place, and time. Cranial Nerves: No cranial nerve deficit. Psychiatric: Mood and Affect: Mood normal. Behavior: Behavior normal. Assessment/Plan Problem List Items Addressed This Visit GERD (gastroesophageal reflux disease) - Primary Relevant Medications omeprazole (PriLOSEC) [address] capsule Hypothyroidism Relevant Medications Synthroid 88 mcg tablet Other Relevant Orders TSH with reflex to Free T4 if abnormal Other Visit Diagnoses Right foot pain Relevant Orders XR foot right 1-2 views Hypothyroidism - tsh 0.22, t4 1.02 - will reduce synthroid to 88mcg po daily -repeat tsh in 2-3 mo 2. Foot pain - willorder xray 3. GERD - continue omeprazole 20mg po daily Final diagnoses: [K21.9] Gastroesophageal reflux disease without esophagitis [E03.9] Acquired hypothyroidism [M79.671] Right foot pain [facility] Work Phone: [phone] History of Present illness Narrative* Janice Lloyd DO - 01/31/2023 8:40 AM EDT Visit was conducted via [employer] platform. Pt and physician were at two separate locations. Pt was verbally consented for the encounter. Answers submitted by the patient for this visit: Ear Pain Questionnaire (Submitted on 01/31/2023) Chief Complaint: Ear pain Affected ear: right Chronicity: new Onset: in the past 7 days Progression since onset: waxing and waning Frequency: every few hours Fever: no fever Pain - numeric: 5/10 abdominal pain: No ear discharge: No rash: No cough: No headaches: Yes rhinorrhea: Yes diarrhea: No hearing loss: No sore throat: No neck pain: Yes vomiting: No Subjective Patient ID: Cassandra Mendoza is a 37 y.o. female who presents for No chief complaint on file.. Earache There is pain in the right ear. This is a new problem. The current episode started in the past 7 days. The problem occurs every few hours. The problem has been waxing and waning. There has been no fever. The pain is at a severity of 5/10. Associated symptoms include headaches, neck pain and rhinorrhea. Pertinent negatives include no abdominal pain, coughing, diarrhea, ear discharge, hearing loss,rash, sore throat or vomiting. Patient reports that last week she had scratchy throat, low grade fevers, sinus pressure and congestion. Then her ear started hurting over the weekend, some discomfort along the back of her neck thatfeels very swollen. She thought it was a zit. It looks red to her. It is below her hair line. Now it is approximately quarter size Review of Systems HENT: Positive for ear pain and rhinorrhea. Negative for ear discharge, hearing loss and sore throat. Respiratory: Negative for cough. Gastrointestinal: Negative for abdominal pain, diarrhea and vomiting. Musculoskeletal: Positive for neck pain. Skin: Negative for rash. Neurological: Positive for headaches. Objective There were no vitals taken for this visit. Physical Exam No physical exam was completed due to being a virtual visit. Assessment/Plan Problem List Items Addressed This Visit None Visit Diagnoses Abscess - Primary Relevant Medications doxycycline (Vibramycin) 100 mg capsule I suspect she has either an abscess, cellulitis or inflammaed sebaceous cyst causing inflammation and pain along lymph nodes, will treated with doxycycline x 10 days, is still currently breast feeding, if not resolve may need to resect this, she is to contact if needed Final diagnoses: [L02.91] Abscess documented in this [facility] Work Phone: [phone] 595-373404-01-2022 History of Present illness Narrative* Patient is here today for 6 mo follow up * She wants to discuss getting of the omeprazole .She had her son in December, she stopped taking it andabout 5 weeks post- and she was having trouble swallowing and a chocking sensation again. Shestarted taking it again and symptoms resolved. * She had an EGD and negative bx results. * Anxiety is well controlled, just doing counseling, no mediations at this point. [facility] Work Phone: Evaluation note* Diagnosis Onset Date Resolution Status AMA (advanced maternal age) multigravida 35+ acute Conceived by in vitro fertilization acute Hypothyroid acute Obesity affecting acute acute Previous section ac [facility] Supervision of high risk , antepartum acute UTI (urinary tract infection ), affecting care of mother, antepartum acute AMA (advanced maternal age) multigravida 35+ acute Conceived by in vitro fertilization acute Hypothyroid acute Obesity affecting acute acute Previous section ac [employer] Supervision of high risk , antepartum acute UTI (urinary tract infection ), affecting care of mother, antepartum acute Abnormal glucose affecting resolved AMA (advanced maternal age) multigravida 35+ acute Conceived by in vitro fertilization acute Hypothyroid acute Obesity affecting acute acute Previous section ac [employer] Supervision of high risk , antepartum acute UTI (urinary tract infection ), affecting care of mother, antepartum acute AMA (advanced maternal age) multigravida 35+ acute Conceived by in vitro fertilization acute Hypothyroid acute Obesity affecting acute acute Previous section ac [employer] Supervision of high risk , antepartum acute UTI (urinary tract infection ), affecting care of mother, antepartum acute AMA (advanced maternal age) multigravida 35+ acute Conceived by in vitro fertilization acute Hypothyroid acute Obesity affecting acute acute Previous section ac [employer] Supervision of high risk , antepartum acute UTI (urinary tract infection ), affecting care of mother, antepartum acute AMA (advanced maternal age) multigravida 35+ acute Conceived by in vitro fertilization acute Hypothyroid acute Obesity affecting acute acute Previous section ac [employer] Supervision of high risk , antepartum acute UTI (urinary tract infection ), affecting care of mother, antepartum acute AMA (advanced maternal age) multigravida 35+ acute Conceived by in vitro fertilization acute Hypothyroid acute Obesity affecting acute acute Previous section ac [employer] Supervision of high risk , antepartum acute UTI (urinary tract infection ), affecting care of mother, antepartum acute AMA (advanced maternal age) multigravida 35+ acute Conceived by in vitro fertilization acute Hypothyroid acute Obesity affecting acute acute Previous section ac [employer] Supervision of high risk , antepartum acute UTI (urinary tract infection ), affecting care of mother, antepartum acute [facility] Work Phone: Evaluation note* Diagnosis Onset Date Resolution Status AMA (advanced maternal age) multigravida 35+ resolved Conceived by in vitro fertilization resolved Hypothyroid resolved Obesity affecting resolved resolved Previous section re solved Supervision of high risk , antepartum resolved UTI (urinary tract infection ), affecting care of mother, antepartum resolved AMA (advanced maternal age) multigravida 35+ resolved Conceived by in vitro fertilization resolved Hypothyroid resolved Obesity affecting resolved resolved Previous section re solved Supervision of high risk , antepartum resolved UTI (urinary tract infection ), affecting care of mother, antepartum resolved AMA (advanced maternal age) multigravida 35+ resolved Conceived by in vitro fertilization resolved Hypothyroid resolved Obesity affecting resolved resolved Previous section re solved Supervision of high risk , antepartum resolved UTI (urinary tract infection ), affecting care of mother, antepartum resolved AMA (advanced maternal age) multigravida 35+ resolved Conceived by in vitro fertilization resolved Hypothyroid resolved Obesity affecting resolved resolved Previous section re solved Supervision of high risk , antepartum resolved UTI (urinary tract infection ), affecting care of mother, antepartum resolved AMA (advanced maternal age) multigravida 35+ resolved Conceived by in vitro fertilization resolved Hypothyroid resolved Obesity affecting resolved resolved Previous section re solved Supervision of high risk , antepartum resolved UTI (urinary tract infection ), affecting care of mother, antepartum resolved AMA (advanced maternal age) multigravida 35+ resolved Conceived by in vitro fertilization resolved Hypothyroid resolved Obesity affecting resolved resolved Previous section re solved Supervision of high risk , antepartum resolved UTI (urinary tract infection ), affecting care of mother, antepartum resolved AMA (advanced maternal age) multigravida 35+ resolved Conceived by in vitro fertilization resolved Hypothyroid resolved Obesity affecting resolved resolved Previous section re solved Supervision of high risk , antepartum resolved UTI (urinary tract infection ), affecting care of mother, antepartum resolved delivery delivered acute AMA (advanced maternal age) multigravida 35+ resolved Conceived by in vitro fertilization resolved Hypothyroid resolved Obesity affecting resolved resolved Previous section re solved Supervision of high risk , antepartum resolved UTI (urinary tract infection ), affecting care of mother, antepartum resolved delivery delivered acute delivery delivered acute [facility] Work Phone: Evaluation note* Diagnosis Abscess- Primary Cellulitis and abscess of unspecified site documented in [facility] encounter [facility] Work Phone: Evaluation note* Diagnosis Acquired hypothyroidism- Primary Unspecified hypothyroidism Gastroesophageal reflux disease without esophagitis Esophageal reflux Right foot pain Pain in soft tissues of limb documented in this encounter [facility] Work Phone: Evaluation note* Diagnosis Onset Date Resolution Status Polycystic ovarian syndrome acute Status post bilateral salpingectomy acute Encounter for routine gynecological examination noneactive [facility] Work Phone: Evaluation note* Diagnosis Onset Date Resolution Status Adult BMI 45.0-49.9 kg/sq m acute Polycystic ovarian syndrome [facility] Work Phone: Evaluation note* Diagnosis Gastroesophageal reflux disease without esophagitis- Primary Esophageal reflux Acquired hypothyroidism Unspecified hypothyroidism documented in this encounter [facility] Work Phone: Evaluation note* Diagnosis Onset Date Resolution Status Adult BMI 45.0-49.9 kg/sq m acute Polycystic ovarian syndrome acute Adult BMI 45.0-49.9 kg/sq m acute delivery delivered acute Polycystic ovarian syndrome [facility] Work Phone: evaluation note* Diagnosis Onset Date Resolution Status Adult BMI 45.0-49.9 kg/sq m acute delivery delivered acute Polycystic ovarian syndrome [facility] Work Phone: evaluation note* Diagnosis Acquired hypothyroidism- Primary Unspecified hypothyroidism Polycystic ovarian disease Polycystic ovaries Gastroesophageal reflux disease without esophagitis Esophageal reflux Thyroid disease Unspecified disorder of thyroid documented in this encounter [facility] Work Phone: Evaluation note* Diagnosis Acute rhinosinusitis- Primary documented in this encounter [facility] Work Phone: Evaluation note* Diagnosis Thyroid disease- Primary Unspecified disorder of thyroid Gastroesophageal reflux disease without esophagitis Esophageal reflux Acquired hypothyroidism Unspecified hypothyroidism Polycystic ovarian disease Polycystic ovaries Anxiety Anxiety state, unspecified documented in this encounter [facility] Work Phone: Evaluation note* Diagnosis Acute non-recurrent maxillary sinusitis- Primary documented in this encounter [facility] Work Phone: Evaluation note* Diagnosis Onset Date Resolution Status Admit Date Adult BMI 45.0-49.9 kg/sq m acute March 11, 2025 1:17pm Metabolic syndrome acute February 222024 1:17pm Polycystic ovarian syndrome acute March 11, 2025 1:17pm Encounter for routine gynecological examination noneactive February 222024 1:17pm [facility] Work Phone: History of Present illness Narrative* Patient is here today for 6 mo follow up with some anxiety. * Patient is currently undergoing SAMEER treatments for embryo transferring. She will start progesteroneinjections next week. * She has one 2 year old girl. They are planning a boy next. * She states that she is having more anxiety lately with this attempt to get , she has fears of prior failures when they were trying to have her daughter. She is not ready to be on daily medication. * She had been having episodes of choking with eating and she saw dr Rai and her testing was all normal, was told just to continue it omeprazole. [facility] Work Phone: History of Present illness Narrative* Patient is here 6 mo follow up on anxiety. * She is currently 29 weeks , baby #2 will be here in December. * They got with the first round of embryo transfer. * They are having a boy. * She is seeing Dr Lamar * Blood pressures have been borderline for her OB appts but today it was normal. * She has been seeing a counselor since April. * She was very anxious anticipating loss, that has been helpful. * Last I had seen her we were discussing a few chocking episodes that she had, started omeprazole 20mg po daily. * She has not had any more of the chocking episodes. * She did have her tsh check about 6 weeks ago. [facility] Work Phone: Reason for referral (narrative)* Consultation (Routine) - Authorized Specialty Diagnoses / Procedures Referred By Meghan rojo Referred To Contact Primary Care Procedures Follow Up In Primary Care Janice Lloyd DO [address] [facility] [place] [address] Referral ID Status Reason Start Date Expiration Date V isits Requested Visits Authorized [id number] Authorized 03/12/2023 09/08/2023 1 1 * Imaging (Routine) - Authorized Specialty Diagnoses / Procedures Referred By Meghan rojo Referred To Contact Radiology Diagnoses Right foot pain Procedures XR foot right 1-2 views Janice Lloyd DO [address] [facility] [place] [address] Referral ID Status Reason Start Date Expiration Date Visits Requested Visits Authorized [id number] Authorized Perform Procedure 03/12/2023 09/08/2023 1 1 [facility] Work Phone: reason for referral (narrative)* Consultation (Routine) - Authorized Specialty Diagnoses / Procedures Referred By Contac t Referred To Contact Primary Care Procedures Follow Up In Primary Care - Established Janice Lloyd DO [address] [place] [address] Physician [place] [phone] Referral ID Status Reason Start Date Expiration Date V isits Requested Visits Authorized [id number] Authorized 09/10/2023 09/09/2024 1 1 [facility] Work Phone: reason for referral (narrative)* Consultation (Routine) - Authorized Specialty Diagnoses / Procedures Referred By Contac t Referred To Contact Primary Care Procedures Follow Up In Primary Care - Established Janice Lloyd DO [address] [place] [address] Physician [place] [phone] Referral ID Status Reason Start Date Expiration Date V isits Requested Visits Authorized [id number] Authorized 03/10/2024 03/10/2025 1 1 [facility] Work Phone: reason for referral (narrative)No reason for referral [facility] Work [facility]: Summary Purpose Family History No Family History Records FoundUnknown Family Member Name Dates Details Family history of hypertensi on(V17.49, Z82.49) Comments:Other Status:Active Family history of thyroid di sease(V18.19, Z83.49) Comments:Other Status:Active Unknown Family Member Name Dates Details Family history of hypertensi on: Other(V17.49, Z82.49) Status:Active Family history of thyroid di sease: Other(V18.19, Z83.49) Status:Active Unknown Family Member Name Dates Details Family history of hypertensi on: Other(V17.49, Z82.49) Status:Active Family history of thyroid di sease: Other(V18.19, Z83.49) Status:Active Unknown Family Member Name Dates Details Family history of thyroid di sease: Other(V18.19, Z83.49) Status:Active Family history of hypertensi on: Other(V17.49, Z82.49) Status:Active Unknown Family Member Name Dates Details Family history of hypertensi on: Other(V17.49, Z82.49) Status:Active Family history of thyroid di sease: Other(V18.19, Z83.49) Status:Active Relationship Condition Age at Onset Recorded Date/T john paul father Hypertension Unknown brother Disorder of thyroid Unknown grandmother Lymphoma Unknown Unknown Family Member Name Dates Details Family history of hypertensi on: Other(V17.49, Z82.49) Status:Active Family history of thyroid di sease: Other(V18.19, Z83.49) Status:Active Unknown Family Member Name Dates Details Family history of hypertensi on: Other(V17.49, Z82.49) Status:Active Family history of thyroid di sease: Other(V18.19, Z83.49) Status:Active Unknown Family Member Name Dates Details Family history of hypertensi on: Other(V17.49, Z82.49) Status:Active Family history of thyroid di sease: Other(V18.19, Z83.49) Status:Active Advance Directives No Advanced Directives Records Found Advance Directive Response Recorded Date/ Time Living Will No April 06, 2019 8:14pm Power of Melt House Drag Operator No April 06 9 8:14pm Advance Directive Response Recorded Date/ Time Living Will No December 29, 2021 5:50am Power of Melt House Drag Operator No December 29 5:50am Advance Directive Response Recorded Date/ Time Living Will No April 17, 2022 3:49pm Power of Melt House Drag Operator No April 17 3:49pm Advance Directive Response Recorded Date/ Time Living Will No April 17, 2022 2:49pm Power of Melt House Drag Operator No April 17 2:49pm Chief Complaint * 35 y/o female presents for 6 month f/u * Pt would like to talk about her Omeprazole * 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) March 11, 2025 1:17 pm INT LABS March 12, 2025 9:20 am Reason for Visit Admit Date Adult BMI 45.0-49.9 kg/sq m March 11 025 1:17pm Metabolic syndrome March 11, 2025 1:17 pm Polycystic ovarian syndrome March 11 025 1:17pm Encounter for routine gynecological exam ination March 11, 2025 1:17pm Chief Complaint 23 WK OB 27 WK OB SCREEN FOR DM 29 WK OB 31 WK OB 32 WK NST GROWTH 33 WK OB/NST 34 WK NST 35 WK OB/NST AMA - MULTIGRAVIDA 35+ 36 WK OB/NST GROWTH Reason for Visit AMA (advanced matern al age) multigravida 35+ Conceived by in vitro fertilization Hypothyroid Obesity affecting Previous section Supervision of high risk , antepartum UTI (urinary tract infection), affecting care of mother, antepartum AMA (advanced maternal age) multigravida 35+ Conceived by in vitro fertilization Hypothyroid Obesity affecting Previous section Supervision of high risk , antepartum UTI (urinary tract infection), affecting care of mother, antepartum Abnormal glucose affecting AMA (advanced maternal age) multigravida 35+ Conceived by in vitro fertilization Hypothyroid Obesity affecting Previous section Supervision of high risk , antepartum UTI (urinary tract infection), affecting care of mother, antepartum AMA (advanced maternal age) multigravida 35+ Conceived by in vitro fertilization Hypothyroid Obesity affecting Previous section Supervision of high risk , antepartum UTI (urinary tract infection), affecting care of mother, antepartum AMA (advanced maternal age) multigravida 35+ Conceived by in vitro fertilization Hypothyroid Obesity affecting Previous section Supervision of high risk , antepartum UTI (urinary tract infection), affecting care of mother, antepartum AMA (advanced maternal age) multigravida 35+ Conceived by in vitro fertilization Hypothyroid Obesity affecting Previous section Supervision of high risk , antepartum UTI (urinary tract infection), affecting care of mother, antepartum AMA (advanced maternal age) multigravida 35+ Conceived by in vitro fertilization Hypothyroid Obesity affecting Previous section Supervision of high risk , antepartum UTI (urinary tract infection), affecting care of mother, antepartum AMA (advanced maternal age) multigravida 35+ Conceived by in vitro fertilization Hypothyroid Obesity affecting Previous section Supervision of high risk , antepartum UTI (urinary tract infection), affecting care of mother, antepartum Chief Complaint 31 WK OB 32 WK NST GROWTH 33 WK OB/NST 34 WK NST 35 WK OB/NST AMA - MULTIGRAVIDA 35+ 36 WK OB/NST GROWTH 37 WK OB/NST 38 WK OB/NST REPEAT C SECTION REPEAT C SECTION REPEAT C SECTION REPEAT C SECTION 2WK PP 6WK PP, DECLINED IUD Reason for Visit AMA (advanced matern al age) multigravida 35+ Conceived by in vitro fertilization Hypothyroid Obesity affecting Previous section Supervision of high risk , antepartum UTI (urinary tract infection), affecting care of mother, antepartum AMA (advanced maternal age) multigravida 35+ Conceived by in vitro fertilization Hypothyroid Obesity affecting Previous section Supervision of high risk , antepartum UTI (urinary tract infection), affecting care of mother, antepartum AMA (advanced maternal age) multigravida 35+ Conceived by in vitro fertilization Hypothyroid Obesity affecting Previous section Supervision of high risk , antepartum UTI (urinary tract infection), affecting care of mother, antepartum AMA (advanced maternal age) multigravida 35+ Conceived by in vitro fertilization Hypothyroid Obesity affecting Previous section Supervision of high risk , antepartum UTI (urinary tract infection), affecting care of mother, antepartum AMA (advanced maternal age) multigravida 35+ Conceived by in vitro fertilization Hypothyroid Obesity affecting Previous section Supervision of high risk , antepartum UTI (urinary tract infection), affecting care of mother, antepartum AMA (advanced maternal age) multigravida 35+ Conceived by in vitro fertilization Hypothyroid Obesity affecting Previous section Supervision of high risk , antepartum UTI (urinary tract infection), affecting care of mother, antepartum AMA (advanced maternal age) multigravida 35+ Conceived by in vitro fertilization Hypothyroid Obesity affecting Previous section Supervision of high risk , antepartum UTI (urinary tract infection), affecting care of mother, antepartum delivery delivered AMA (advanced maternal age) multigravida 35+ Conceived by in vitro fertilization Hypothyroid Obesity affecting Previous section Supervision of high risk , antepartum UTI (urinary tract infection), affecting care of mother, antepartum delivery delivered delivery delivered Chief Complaint 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) Reason for Visit Polycystic ovarian s yndrome Status post bilateral salpingectomy Encounter for routine gynecological examination Chief Complaint pcos fu MORBID OBESITY Reason for Visit Adult BMI 45.0-49.9 kg/sq m Polycystic ovarian syndrome Chief Complaint pcos fu MORBID OBESITY MORBID OBESITY 3 M FU Reason for Visit Adult BMI 45.0-49.9 kg/sq m Polycystic ovarian syndrome Adult BMI 45.0-49.9 kg/sq m delivery delivered Polycystic ovarian syndrome Chief Complaint MORBID OBESITY 3 M FU MORBID OBESITY Reason for Visit Adult BMI 45.0-49.9 kg/sq m delivery delivered Polycystic ovarian syndrome Chief Complaint Admit Date 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) March 11, 2025 1:17 pm Additional Source Comments INFORMATION SOURCE (unrecogn ized section and content) DATE CREATED AUTHOR 03/13/2018 [facility] DATE CREATED AUTHOR AUTHOR'S ORGANIZ ATION 12/30/2020 [facility] DATE CREATED AUTHOR AUTHOR'S ORGANIZ ATION 12/31/2020 [facility] ([place]) DATE CREATED AUTHOR AUTHOR'S ORGANIZ ATION 03/07/2021 [facility] DATE CREATED AUTHOR AUTHOR'S ORGANIZ ATION 02/03/2022 [facility] DATE CREATED AUTHOR AUTHOR'S ORGANIZ ATION 09/15/2022 [facility] DATE CREATED AUTHOR AUTHOR'S ORGANIZ ATION 12/26/2022 [employer] DATE CREATED AUTHOR AUTHOR'S ORGANIZ ATION 09/03/2023 [facility] DATE CREATED AUTHOR AUTHOR'S ORGANIZ ATION 09/22/2024 [facility] DATE CREATED AUTHOR AUTHOR'S ORGANIZ ATION 10/03/2024 [facility] DATE CREATED AUTHOR AUTHOR'S ORGANIZ ATION 01/01/2025 [facility] DATE CREATED AUTHOR AUTHOR'S ORGANIZ ATION 03/18/2025 [facility] Goals (unrecognized section and content) Goals may be documented in a n alternate sectionGoals may be documented in an alternate sectionGoals may be documented in an alternate sectionGoals may be documented in an alternate sectionGoals may be documented in an alternate sectionGoals may be documented in an alternate sectionGoals may be documented in an alternate sectionGoals may be documented in an alternate sectionGoals may be documented in an alternate sectionGoals may be documented in an alternate section <item><item> Privacy Markings (unrecogniz ed section and content) Section Author: Margot Martinez PROHIBITION ON REDISCLOSURE OF CONFIDENTIAL INFORMATION This notice accompanies a disclosure of information concerning a client made to you with the consent of such client. Section Author: Margot Martinez PROHIBITION ON REDISCLOSURE OF CONFIDENTIAL INFORMATION This notice accompanies a disclosure of information concerning a client made to you with the consent of such client. Reason for Visit (unrecogniz ed section and content) Reason Comments Earache Reason Comments Follow-up 6 month Reason Comments Follow-up 6 mo follow up did n ot do labs Specialty Diagnoses / Procedures Referred By Contac t Referred To Contact Primary Care Procedures Follow Up In Primary Care Janice Lloyd DO [address] [place] [address] [place] [address] Referral ID Status Reason Start Date Expiration Date Visits Re quested Visits Authorized [id number] Closed 03/12/2023 09/08/2023 1 1 Reason Comments Follow-up 6 month Specialty Diagnoses / Procedures Referred By Contac t Referred To Contact Primary Care Procedures Follow Up In Primary Care - Established Janice Lloyd DO [address] [facility] [place] [address] Referral ID Status Reason Start Date Expiration Date V isits Requested Visits Authorized [id number] Authorized 09/10/2023 09/09/2024 1 1 Reason Comments URI Cough/congestion, ch ills x 10 days. Negative home test 06/02 and another on 06/04 Diarrhea Diarrhea x 2 days Reason Comments Follow-up 6 months Specialty Diagnoses / Procedures Referred By Contac t Referred To Contact Primary Care Procedures Follow Up In Primary Care - Established Janice Lloyd DO [address] [place] [address] Physician [place] [phone] Phone: tel: fax: Referral ID Status Reason Start Date Expiration Date V isits Requested Visits Authorized [id number] Authorized 03/10/2024 03/10/2025 1 1 Reason Comments URI Sinus drainage/press ure, cough, KO x 1 week Care Teams (unrecognized sec tion and content) [employer] Tech Relationship Specialty Start Date End Date Janice Lloyd DO [address] [place] [address] [place] [address] PCP - General 10/11/20 [employer] Tech Relationship Specialty Start Date End Date Janice Lloyd DO [address] [facility] [place] [address] PCP - General 10/11/20 Team Status: Active Member Role Status Dates Dr. Janice Lloyd , Primary Care Provider Active Team Status: Inactive Member Role Status Dates Dr. Janice Lloyd DO Primary Care Provider, Refer ring Provider Active Dr. Gabrielle Stone MD Attending Provider Active Team Status: Inactive Member Role Status Dates Dr. Janice Lloyd DO Primary Care Provider Active Dr. Gabrielle Stone MD Attending Provider, Referr ing Provider Active Team Status: Inactive Member Role Status Dates Dr. Janice Lloyd DO Primary Care P fabriceder, Attending Provider, Referring Provider Active [employer] Manufacturing Tech Relationship Specialty Start Date End Date Janice Lloyd DO [address] [facility] [place] [address] PCP - General 10/11/20 [employer] Manufacturing Tech Relationship Specialty Start Date End Date Janice Lloyd DO [address] [facility] [place] [address] PCP - General 10/11/20 Janice Lloyd DO [address] [facility] [place] [address] PCP - MMO ACO PCP 09/24/23 Team Status: Active Member Role Status Dates Dr. Janice Lloyd DO Primary Care Provider Active Dr. Gabrielle Stone MD Attending Provider, Referr ing Provider Active [employer] Manufacturing Tech Relationship Specialty Start Date End Date Janice Lloyd DO [address] [facility] [place] [address] PCP - General 10/11/20 Janice Lloyd, DO [address] [facility] [place] [address] PCP - MMO ACO PCP 09/24/23 [employer]ens Manufacturing Tech Relationship Specialty Start Date End Date Janice Lloyd DO [address] [facility] [place] [address] PCP - General 10/11/20 Janice Lloyd DO [address] [facility] [place] [address] PCP - MMO ACO PCP 09/24/23 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 Janice Lloyd DO Primary Care Provider Active Start: March 11, 2025 End: March 11, 2025 Dr. Janice Lloyd DO Referring Provider Active Start: March 11, 2025 End: March 11, 2025 Dr. Gabrielle Stone MD Attending Provider Active Start: March 11, 2025 End: March 11, 2025 Team Status: Inactive Member Role Status Dates Dr. Janice Lloyd DO Primary Care Provider Active Start: March 11, 2025 End: March 11, 2025 Dr. Gabrielle Stone MD Attending Provider Active Start: March 11, 2025 End: March 11, 2025 Dr. Gabrielle Stone MD Referring Provider Active Start: March 11, 2025 End: March 11, 2025 Team Status: Active Member Role Status Dates Dr. Janice Lloyd DO Primary Care Provider Active Start: March 12, 2025 Dr. Gabrielle Stone MD Attending Provider Active Start: March 12, 2025 Dr. Gabrielle Stone MD Referring Provider Active Start: March 12, 2025 Team Status: Inactive Member Role Status Dates Dr. Janice Lloyd DO Primary Care Provider Active Start: March 12, 2025 End: March 12, 2025 Dr. Gabrielle Stone MD Attending Provider Active Start: March 12, 2025 End: March 12, 2025 Dr. Gabrielle Stone MD Referring Provider Active Start: March 12, 2025 End: March 12, 2025 FOR RECORDS PERTAINING TO PATIENTS WHO ARE OR HAVE BEEN ENROLLED IN A CHEMICAL DEPENDENCY/SUBSTANCEABUSE PROGRAM, SOME INFORMATION MAY BE OMITTED. This clinical summary was aggregated from multiple sources. Caution should be exercised in using it in the provision of clinical care. This summary normalizes information from multiple sources, and as a consequence, information in this document may materially change the coding, format and clinical context of patient data. In addition, data may be omitted in some cases. CLINICAL DECISIONS SHOULD BE BASED ON THE PRIMARY CLINICAL RECORDS. [facility] [employer] [facility]. provides no warranty or guarantee of the accuracy or completeness of information in this document.
== END | disposition home or self-care (01) ==
LOC: LAB 13:55
PROVIDERS: PCP Internal Medicine; Referring Provider Obstetrics & Gynecology; Visit Provider Obstetrics & Gynecology
DX: E88.810 Metabolic syndrome (principal); R79.89 Other specified abnormal findings of blood chemistry
CPT/HCPCS: 36415; 84439

== ENCOUNTER → 2025-05-14 | Outpatient (CLI) | payer OTHER, SELFPAY | END | disposition home or self-care (01) | LOC: BWCLAB 15:54 | PROVIDERS: PCP Internal Medicine; Referring Provider Nurse Practitioner Family; Visit Provider Nurse Practitioner Family | DX: E03.9 Hypothyroidism, unspecified (principal); Z13.29 Encounter for screening for other suspected endocrine disorder | CPT/HCPCS: 36415; 84439; 84443 ==